=== PATIENT | male | born 1970 | race Caucasian/White ===

== ENCOUNTER 2020-01-27 15:21 | Inpatient (IN) ==
[2020-01-27] MEDS ORDERED: ASPIRIN 81 MG CHEW PO STA (17:13)
--- NOTE | 2020-01-27 17:14 | Emergency Department Note ---
History of Present Illness General Chief complaint: Chest Pain Stated complaint: CHEST PAIN, TROUBLE BREATHIN, HEAVY CHEST Time Seen by Provider: 01/27/20 16:55 History of Present Illness Maximum Pain Intensity: 7 This is a 50-year-old male that presents to the emergency department via private vehicle accompanied by female with complaints of "chest pain, trouble breathing, heavy chest". The patient states that for the past 2 weeks he has been experiencing a heaviness in the chest that is worse with lying flat and exertion. He denies any history of TX but does note a history of thymoma with several surgeries last of which was in 2016. He notes he has not had chemo since 2008. He was diagnosed with a thymoma in 2002. The patient describes the current discomfort that he has had for the past 2 weeks as a heaviness in the chest but worsened last week. He does see Dr. Roberson of cardiology in [place]. The patient states that he has had trouble sleeping secondary to the pain. He was recently evaluated at [facility] department on Thursday of this week where he notes he had a full work-up done which was reassuring and although he was recommended to stay for observation he declined. He did have a CT scan of the chest performed there to evaluate for PE and he does show the report and at this time it was read as negative for evidence of PE. The patient describes overall discomfort is a 710. Home Medications Home Medications Medication Instructions Recorded Confirmed Type enalapril maleate 2.5 mg PO HS 04/04/18 01/27/20 History pravastatin 40 mg PO HS 04/04/18 01/27/20 History ascorbic acid (vitamin C) [Vitamin 1,000 mg PO QAM 01/27/20 01/27/20 History C] baclofen 10 mg PO HS PRN 01/27/20 01/27/20 History carvedilol 6.25 mg PO AMHS 01/27/20 01/27/20 History cyanocobalamin (vitamin B-12) 1,000 mcg PO QAM 01/27/20 01/27/20 History [Vitamin B-12] hydroxyzine HCl 25 mg PO Q6H PRN 01/27/20 01/27/20 History tramadol 50 - 100 mg PO HS PRN 01/27/20 01/27/20 History Allergies Allergy/AdvReac Type Severity Reaction Status Date / Time ciprofloxacin [From Cipro] Allergy Intermediate Rash Verified 01/27/20 18:50 duloxetine [From Cymbalta] Allergy Intermediate unable to Verified 01/27/20 18:50 void Past Med/Surg History Medical History Cardiomyopathy due to chemotherapy Chronic pain syndrome History of rectal bleeding recent adm to [facility], found to have hemorrhoids, hgb stable at 15 HLD (hyperlipidemia) HTN (hypertension) IBS (irritable bowel syndrome) Malignant thymoma (Resolved) PTSD (post-traumatic stress disorder) Raynaud's disease (Chronic) Syncopal episodes (Resolved) Surgical History H/O abdominal surgery History of back surgery S/P thoracotomy Family History Other No significant family history Social History Preferred Language: Botswan[place] Communication Ability: Effective Director Fraud Required: No Beliefs That Will Affect Care: None Current Living Situation: Spouse and Other Current Living Situation Comment: adult child and two dogs Other Information That Helps Us Care for You: Yes (Be aware that I have PTSD if i am asleep and I am awoken suddenly.) Feels Safe at Home: Yes Safety Concerns: Feels Safe At This Time Smoking Status: Former smoker Hx Alcohol Use: Yes Alcohol type: beer Alcohol Intake Frequency: Rarely Hx Substance Use: No Review of Systems A total of 10 systems reviewed and were otherwise negative Physical Exam Vital Signs Vital Signs - 24 hr 01/27/20 15:29 01/27/20 17:57 01/27/20 17:58 Temperature 36.9 C Temperature Source Oral Pulse Rate 106 H 98 H Pulse Rate [Apical] 94 H Pulse Rate from SpO2 Sensor Pulse Rhythm Regular Pulse Rhythm [Apical] Regular Pulse Strength [Apical] Normal Respiratory Rate 22 20 22 Respiratory Effort / Characteristics Non-Labored Spontaneous Respiratory Depth Normal Respiratory Pattern Regular Blood Pressure 128/82 Blood Pressure [Left Arm] 111/89 Blood Pressure Mean 97 Blood Pressure Mean [Left Arm] 96 Blood Pressure Position [Left Arm] Sitting Pulse Oximetry 99 99 99 Oxygen Delivery Method Room Air Room Air Room Air Sepsis Recent Fever Within 48 Hours No Sepsis New/Unexplained Change in Mental Status No Sepsis Action Taken by Nursing No Action Required 01/27/20 18:53 01/27/20 19:15 01/27/20 19:45 Temperature Temperature Source Pulse Rate 99 H 103 H Pulse Rate [Apical] 99 H Pulse Rate from SpO2 Sensor 98 H 105 H Pulse Rhythm Pulse Rhythm [Apical] Regular Pulse Strength [Apical] Normal Respiratory Rate 18 20 21 Respiratory Effort / Characteristics Non-Labored Spontaneous Respiratory Depth Normal Respiratory Pattern Regular Blood Pressure 121/80 113/88 Blood Pressure [Left Arm] 134/87 Blood Pressure Mean 84 93 Blood Pressure Mean [Left Arm] 102 Blood Pressure Position [Left Arm] Sitting Pulse Oximetry 97 97 98 Oxygen Delivery Method Room Air Sepsis Recent Fever Within 48 Hours Sepsis New/Unexplained Change in Mental Status Sepsis Action Taken by Nursing 01/27/20 19:49 01/27/20 20:00 Temperature Temperature Source Pulse Rate 102 H Pulse Rate [Apical] Pulse Rate from SpO2 Sensor 102 H Pulse Rhythm Pulse Rhythm [Apical] Pulse Strength [Apical] Respiratory Rate 21 Respiratory Effort / Characteristics Respiratory Depth Respiratory Pattern Blood Pressure 99/76 L Blood Pressure [Left Arm] Blood Pressure Mean 88 Blood Pressure Mean [Left Arm] Blood Pressure Position [Left Arm] Pulse Oximetry 96 94 Oxygen Delivery Method Room Air Sepsis Recent Fever Within 48 Hours Sepsis New/Unexplained Change in Mental Status Sepsis Action Taken by Nursing VITAL SIGNS - Vital signs and nursing notes were reviewed. Stable and afebrile. GENERAL - 50-year-old male appearing his stated age who is in no acute distress. Communicates well with provider and answers questions appropriately. SKIN - Without rashes. No meningeal or petechial rash HEAD - NC/AT. EYES - PERRL with EOMI bilaterally. Sclera anicteric. EARS - No deformities of external structures noted on gross examination bilaterally. NOSE - Midline and without cyanosis. No epistaxis or purulent drainage noted. MOUTH/OROPHARYNX - Without perioral cyanosis. NECK - Neck with FROM. No nuchal rigidity. LUNGS - Chest wall symmetric without accessory muscle use, intercostals retractions, or central cyanosis. Normal vesicular breath sounds CTA B/L. No wheezes, rales, or rhonchi appreciated. CARDIAC - RRR with S1/S2. No murmur, rubs, or gallops appreciated. ABDOMEN - Abdominal contour normal without pulsations or visible masses. BS normoactive all four quadrants. No tenderness, palpable masses, hepatosplenomegaly, or ascites noted. EXTREMITIES - No clubbing or peripheral cyanosis. No pretibial edema present. +5/5 strength noted in UE/LE bilaterally. NEUROLOGIC - Cranial nerves II through XII grossly intact. PSYCH - A&O, and cooperates fully with examiner. Pt is very pleasant and interacts well with examiner. Course Administered Medications Carvedilol (Coreg) 6.25 mg PO [facility] Stop: 02/26/20 21:39 Last Admin: 01/27/20 22:49 Dose: Not Given Documented by: [id number] Enalapril Maleate (Vasotec) 2.5 mg PO [facility] Stop: 02/26/20 21:39 Last Admin: 01/27/20 22:50 Dose: 2.5 mg Documented by: [id number] Heparin Sodium/Dextrose (Heparin Sodium/Dextrose) 25,000 units in 500 mls @ 18 mls/hr IV .Q24H [facility]; Protocol Stop: 02/26/20 20:14 Last Admin: 01/27/20 22:35 Dose: 900 units/hr, 18 mls/hr Documented by: [id number] Cosigned by: [id number] Morphine Sulfate (Morphine Sulfate) 2 mg IV Q4H PRN PRN Reason: Pain Stop: 02/10/20 21:39 Last Admin: 01/27/20 22:36 Dose: 2 mg Documented by: [id number] Pravastatin Sodium (Pravachol) 40 mg PO [facility] Stop: 02/26/20 21:39 Last Admin: 01/27/20 22:50 Dose: 40 mg Documented by: [id number] Discontinued Medications Aspirin (Aspirin Chew) 324 mg PO NOW STA Stop: 01/27/20 17:14 Last Admin: 01/27/20 18:00 Dose: 324 mg Documented by: [id number] Morphine Sulfate (Morphine Sulfate) 4 mg IV NOW STA Stop: 01/27/20 18:05 Last Admin: 01/27/20 18:52 Dose: 4 mg Documented by: [id number] Nitroglycerin (Nitro-Bid 2%) 0.5 inch EXT NOW STA Stop: 01/27/20 18:05 Last Admin: 01/27/20 18:51 Dose: 0.5 inch Documented by: [id number] Ondansetron HCl (Zofran) 4 mg IV NOW STA Stop: 01/27/20 18:05 Last Admin: 01/27/20 18:52 Dose: 4 mg Documented by: [id number] Medical Decision Making Laboratory Data Result diagrams: 01/27/20 16:59 01/27/20 16:59 Lab Results 01/27/20 01/27/20 01/27/20 Range/Units 16:59 16:59 16:59 WBC 11.54 H (4.8-10.8) K/uL RBC 5.06 (4.7-6.1) M/uL Hgb 15.7 (14.0-18.0) g/dL Hct 44.8 (42-52) % MCV 88.5 (80-100) fL MCH 31.0 (25-34) pg MCHC 35.0 (32-36) g/dL RDW Std Deviation 41.7 (36.4-46.3) fL RDW Coeff of Lucila 12.9 (11.5-14.5) % Plt Count 270 (130-400) K/uL MPV 10.0 (7.4-10.4) fL Immature Gran % (Auto) 0.3 % Neut % (Auto) 74.7 % Lymph % (Auto) 9.4 % Stone % (Auto) 13.0 % Eos % (Auto) 2.3 % Baso % (Auto) 0.3 % Neut # (Auto) 8.63 H (1.4-6.5) K/uL Lymph # (Auto) 1.08 L (1.2-3.4) K/uL Stone # (Auto) 1.50 H (0.11-0.59) K/uL Eos # (Auto) 0.27 (0-0.5) K/uL Baso # (Auto) 0.03 (0-0.2) K/uL Immature Gran # (Auto) 0.03 H (0.00-0.02) K/uL PT 11.2 (9.0-12.0) Seconds INR 1.1 (0.9-1.1) APTT 25.1 (21.0-31.0) Seconds PTT Ratio 0.9 Sodium 139 (136-145) mmol/L Potassium 3.7 (3.5-5.1) mmol/L Chloride 104 (98-107) mmol/L Carbon Dioxide 28 (21-32) mmol/L Anion Gap 7.0 (3-11) BUN 16 (7-18) mg/dl Creatinine 1.19 (0.6-1.4) mg/dl Est Cr Clr Drug Dosing 79.2 ml/min Est GFR ( Amer) 82.1 Est GFR (Non-Af Amer) 70.8 BUN/Creatinine Ratio 13.5 (10-20) Glucose 110 H (70-99) mg/dl Calcium 9.2 (8.5-10.1) mg/dl Magnesium 1.6 L (1.8-2.4) mg/dl Total Bilirubin 1.9 H (0.2-1) mg/dl AST 20 (15-37) U/L ALT 31 (12-78) U/L Alkaline Phosphatase 91 (45-117) U/L Total Creatine Kinase 47 (39-308) U/L CK-MB (CK-2) < 1.0 (0.5-3.6) ng/ml CK/CKMB % Calc TNP Troponin I 0.154 H* (0-0.045) ng/ml NT-Pro-B Natriuret Pep 119 (0-900) pg/ml Total Protein 7.8 (6.4-8.2) gm/dl Albumin 3.3 L (3.4-5.0) gm/dl Globulin 4.5 H (2.5-4.0) gm/dl Albumin/Globulin Ratio 0.7 L (0.9-2) Lipase 73 (73-393) U/L TSH 5.610 H (0.300-4.500) uIu/ml Free T4 1.00 (0.8-1.6) ng/dl Lyme Disease IgG Ab (Negative) Lyme Disease IgM Ab (Negative) 01/27/20 Range/Units 16:59 WBC (4.8-10.8) K/uL RBC (4.7-6.1) M/uL Hgb (14.0-18.0) g/dL Hct (42-52) % MCV (80-100) fL MCH (25-34) pg MCHC (32-36) g/dL RDW Std Deviation (36.4-46.3) fL RDW Coeff of Lucila (11.5-14.5) % Plt Count (130-400) K/uL MPV (7.4-10.4) fL Immature Gran % (Auto) % Neut % (Auto) % Lymph % (Auto) % Stone % (Auto) % Eos % (Auto) % Baso % (Auto) % Neut # (Auto) (1.4-6.5) K/uL Lymph # (Auto) (1.2-3.4) K/uL Stone # (Auto) (0.11-0.59) K/uL Eos # (Auto) (0-0.5) K/uL Baso # (Auto) (0-0.2) K/uL Immature Gran # (Auto) (0.00-0.02) K/uL PT (9.0-12.0) Seconds INR (0.9-1.1) APTT (21.0-31.0) Seconds PTT Ratio Sodium (136-145) mmol/L Potassium (3.5-5.1) mmol/L Chloride (98-107) mmol/L Carbon Dioxide (21-32) mmol/L Anion Gap (3-11) BUN (7-18) mg/dl Creatinine (0.6-1.4) mg/dl Est Cr Clr Drug Dosing ml/min Est GFR ( Amer) Est GFR (Non-Af Amer) BUN/Creatinine Ratio (10-20) Glucose (70-99) mg/dl Calcium (8.5-10.1) mg/dl Magnesium (1.8-2.4) mg/dl Total Bilirubin (0.2-1) mg/dl AST (15-37) U/L ALT (12-78) U/L Alkaline Phosphatase (45-117) U/L Total Creatine Kinase (39-308) U/L CK-MB (CK-2) (0.5-3.6) ng/ml CK/CKMB % Calc Troponin I (0-0.045) ng/ml NT-Pro-B Natriuret Pep (0-900) pg/ml Total Protein (6.4-8.2) gm/dl Albumin (3.4-5.0) gm/dl Globulin (2.5-4.0) gm/dl Albumin/Globulin Ratio (0.9-2) Lipase (73-393) U/L TSH (0.300-4.500) uIu/ml Free T4 (0.8-1.6) ng/dl Lyme Disease IgG Ab Negative (Negative) Lyme Disease IgM Ab Negative (Negative) Imaging Data Radiologist's Impression: XR chest 1V portable CLINICAL HISTORY: Atypical chest pain COMPARISON STUDY: 02/12/2019 FINDINGS: There are postsurgical changes of a midline sternotomy. Spinal electrodes are again evident. The heart is enlarged. There is elevation left hemidiaphragm. There is a chronic deformity left chest wall. There are subsegmental atelectatic changes at the left lung base. There is no lobar consolidation. There is no overt failure. There are minor atelectatic changes at the right lung base.[ IMPRESSION: Chronic changes as described above. No acute findings ACT 112: Negative or not required by law. Electronically signed by: Fredi Davey M.D. 01/27/2020 5:53 PM ECG Data Additional Comments: Sinus rhythm with PVC. 93 bpm. QTc 430. No evidence of [address] YUNG. MDM Narrative Patient was seen and evaluated as above in room B03. Review was performed of nursing notes and vital signs. I did review pertinent previous visits and patient history. After obtaining a thorough history and physical examination the above work up was performed. He presents today with chest pain. Described as a heaviness and worse with exertion. Concern is for cardiac etiology. IV access was established. Labs were drawn. He was given a full-strength chewable aspirin here. EKG does not reveal any evidence of ST YUNG. Chest x-ray is as above. Patient has had ongoing pain x2 weeks, however with his persistence of pain did feel it was warranted to provide nitroglycerin as well as morphine. Troponin was found to be minimally elevated. Mild leukocytosis without anemia. No emergent metabolic disturbance. No coagulopathy. No evidence of emergent kidney or liver failure. T bili is mildly elevated and magnesium is slightly low. TSH elevated with free T4 that is normal. Lyme testing negative. Given the patient's presentation it is felt that further evaluation and management is warranted in the inpatient setting. Case discussed with the hospitalist. Please refer to further documentation regarding his stay. While in the department, I personally reevaluated the patient. Concern is for NSTEMI. I did review his records from [facility] from 2 days ago where he had a negative CTA of the chest therefore feel PE is less likely. Case was discussed with the attending physician. An order was placed for continuous cardiac monitoring. The monitor shows a rate of 106 with sinus rhythm. I attest that I have personally reviewed the patient medication list GCS: 15 In the evaluation and treatment of this patient, the following differential diagnoses were considered: TX, ASC, Dysrhythmia, Angina, Mediastinitis, GERD, Esophagitis, PE, Pneumonia, Bronchitis, Costochondritis, Rib Fracture, Zoster. Impression & Plan Non-ST elevation TX (NSTEMI), Exertional chest pain, Elevated troponin Discharge Plan Visit Data *Final* Discharge Date/Time: 01/27/20 20:46 Chief Complaint: Chest Pain Stated Complaint: CHEST PAIN, TROUBLE BREATHIN, HEAVY CHEST ED Provider: Brenden Birch ED Midlevel Provider: Sanya Coyle Discharge Problem: Non-ST elevation TX (NSTEMI), Exertional chest pain, Elevated troponin Patient Disposition: Admitted As Inpatient Condition: Fair Discharge Instructions Interventions: ED Discharge Assessment Last Done: 01/27/20 20:46
[2020-01-27 17:32] LABS: Basophils # (auto) 0.03 K/uL (0-0.2); Basophils % (auto) 0.3 %; Eosinophils # (auto) 0.27 K/uL (0-0.5); Eosinophils % (auto) 2.3 %; Hematocrit (blood only) 44.8 % (42-52); Hemoglobin 15.7 g/dL (14.0-18.0); Immature Granulocytes # (auto) 0.03 K/uL (0.00-0.02); Immature Granulocytes % (auto) 0.3 %; Lymphocytes # (auto) 1.08 K/uL (1.2-3.4); Lymphocytes % (auto) 9.4 %; Mean Corpuscular Volume 88.5 fL (80-100); Neutrophils # (auto) 8.63 K/uL (1.4-6.5); Neutrophils % (auto) 74.7 %; Platelet Count 270 K/uL (130-400); RDW Coefficient of Variation 12.9 % (11.5-14.5); RDW Standard Deviation 41.7 fL (36.4-46.3); Red Blood Count 5.06 M/uL (4.7-6.1); White Blood Count 11.54 K/uL (4.8-10.8)
[2020-01-27 17:39] LABS: Alanine Aminotransferase 31 U/L (12-78); Albumin Level 3.3 gm/dl (3.4-5.0); Aspartate Aminotransferase 20 U/L (15-37); BUN Creatinine Ratio 13.5 (10-20); Blood Urea Nitrogen 16 mg/dl (7-18); Calcium 9.2 mg/dl (8.5-10.1); Carbon Dioxide 28 mmol/L (21-32); Chloride 104 mmol/L (98-107); Creatinine Clr Calc Pharmacy 79.2 ml/min; Est GFR (African American) 82.1; Est GFR (Non-African American) 70.8; Glucose 110 mg/dl (70-99); Lipase 73 U/L (73-393); Magnesium 1.6 mg/dl (1.8-2.4); Potassium 3.7 mmol/L (3.5-5.1); Sodium 139 mmol/L (136-145)
[2020-01-27 17:43] LABS: INR 1.1 (0.9-1.1); Partial Thromboplastin Ratio 0.9; Partial Thromboplastin Time 25.1 Seconds (21.0-31.0); Prothrombin Time 11.2 Seconds (9.0-12.0)
[2020-01-27 17:54] LABS: Albumin Globulin Ratio 0.7 (0.9-2); Alkaline Phosphatase 91 U/L (45-117); Bilirubin,Total 1.9 mg/dl (0.2-1); Creatine Kinase 47 U/L (39-308); Creatine Kinase MB < 1.0 ng/ml (0.5-3.6); Globulin 4.5 gm/dl (2.5-4.0); NT Pro B Type Natriuretic Pept 119 pg/ml (0-900); Total Protein 7.8 gm/dl (6.4-8.2); Troponin I 0.154 ng/ml (0-0.045)
--- NOTE | 2020-01-27 17:55 | XRay Report ---
XR chest 1V portable CLINICAL HISTORY: Atypical chest pain COMPARISON STUDY: 02/12/2019 FINDINGS: There are postsurgical changes of a midline sternotomy. Spinal electrodes are again evident . The heart is enlarged. There is elevation left hemidiaphragm. There is a chronic deformity left jonatan st wall. There are subsegmental atelectatic changes at the left lung base. There is no lobar consolid ation. There is no overt failure. There are minor atelectatic changes at the right lung base.[ IMPRESSION: Chronic changes as described above. No acute findings ACT 112: Negative or not required by law. Electronically signed by: Fredi Davey M.D. 01/27/2020 5:53 PM
[2020-01-27] MEDS ORDERED: MoRPHine SULFATE 4 MG/ML 1 ML CARP\\VIAL IV STA (18:04)
[2020-01-27] MEDS ORDERED: NITROGLYCERIN 2% OINTMENT 30GM TUBE EXT STA (18:04)
[2020-01-27] MEDS ORDERED: ONDANSETRON INJ 2 MG/ML 2 ML VIAL IV STA (18:04)
[2020-01-27 18:40] LABS: Lyme Ab IgG w/WB Rflx Negative (Negative); Lyme Ab IgM w/WB Rflx Negative (Negative)
[2020-01-27] MEDS ORDERED: HEPARIN SODIUM/DEXTROSE 25,000 UNITS/500 ML BAG IV SCH (20:15)
--- NOTE | 2020-01-27 20:16 | History & Physical Report ---
Date of Service January 27, 2020 Assessment & Plan (1) NSTEMI (non-ST elevated myocardial infarction): This is a 50yo M with history of thymoma in remission, history of left lobectomy, cardiomyopathy 2/2 chemotherapy, atypical chest pain, post thoracotomy pain syndrome, HTN, PTSD and other medical problems listed below who presents with progressively worsening chest pain x1 week and was found to have NSTEMI. -Persistent chest pain with troponin elevation of 0.154. Chest pain complicated by history of thoracotomy with residual pain syndrome, but no troponin elevation in the past -EKG with sinus rhythm with PVCs. No acute ST changes -CT PE performed at [facility] on 01/24 with no evidence of PE -Pain improved with nitroglycerin and morphine today. Admit to PCU and monitor on telemetry. Trend troponin, check 2D echo, nitroglycerin and morphine as needed -Started low-dose IV heparin. NPO after midnight -Routine cardiology consult for [facility] cardiology. Follows with Dr. Leiva of [facility] [address] [facility] (2) Syncopal episodes: Endorses 2 witnessed syncopal episodes 2 nights ago in setting of chest discomfort -Likely orthostatic in setting of dehydration but possible cardiac etiology. Monitor on telemetry (3) Malignant thymoma: In remission s/p surgical resection and chemotherapy. Follows with oncologist in [place] who is due to see later this month (4) History of rectal bleeding: History of internal hemorrhoids with recent admission to [facility] for rectal bleeding. Hemoglobin stable at 15 -Monitor closely for bleeding while on IV heparin, trend CBC (5) Cardiomyopathy due to chemotherapy: Continue carvedilol, lisinopril (6) HLD (hyperlipidemia): Continue pravastatin (7) PTSD (post-traumatic stress disorder): Hydroxyzine as needed DVT Ppx: IV heparin Code status: FULL PCP: JAVIER Templeton. Also follows with [facility] in [place] Dispo: Admitted to PCU. Plan to return home once medically stable. Patient seen in collaboration with Dr. Lepe. Please see addendum. History of Present Illness Chief Complaint: chest pain Primary Care Provider: Cheyanne Templeton PA-C This is a 50yo M with history of thymoma in remission, history of left lobectomy, cardiomyopathy 2/2 chemotherapy, atypical chest pain, post thoracotomy pain syndrome, HTN, PTSD and other medical problems listed below who presents with progressively worsening chest pain x1 week. Patient saw scenic artist Dr. Leiva in [place] 1 week ago and had EKG performed, which was normal and echo was scheduled for later in the week. Was told that pain might be related to GERD and to try PPI but pain did not improve. Was then seen in [facility] ER on 01/24 with continued chest pain and had EKG and chest x- ray were unremarkable. CT PE from 01/24 showed postsurgical changes from history of thymoma and was negative for PE. Was recommended to stay for observation but patient wanted to return home and rest. Returned home that Thursday night and reportedly had 2 syncopal episodes witnessed by . Did not want to go back to ED at that point and proceeded to sleep for most of the day yesterday through this morning. When he woke up today, had persistent but worsened chest pain radiating from his left or right chest with occasional radiation into her right jaw. Describes pain as a pressure, "like someone sitting on my chest". Worsened with deep inspiration. No nausea, vomiting or palpitations. Saw provider at [facility] and was sent to [facility] ED for further evaluation. TTE from 12/2018 with EF of 48%, diffuse mild hypokinesis, grade 1 diastolic dysfunction, no significant valvular disease. Allergies Allergy/AdvReac Type Severity Reaction Status Date / Time ciprofloxacin [From Cipro] Allergy Intermediate Rash Verified 01/27/20 18:50 duloxetine [From Cymbalta] Allergy Intermediate unable to Verified 01/27/20 18:50 void Home Medications Home Medications Medication Instructions Recorded Confirmed Type enalapril maleate 2.5 mg PO HS 04/04/18 01/27/20 History pravastatin 40 mg PO HS 04/04/18 01/27/20 History ascorbic acid (vitamin C) [Vitamin 1,000 mg PO QAM 01/27/20 01/27/20 History C] baclofen 10 mg PO HS PRN 01/27/20 01/27/20 History carvedilol 6.25 mg PO AMHS 01/27/20 01/27/20 History cyanocobalamin (vitamin B-12) 1,000 mcg PO QAM 01/27/20 01/27/20 History [Vitamin B-12] hydroxyzine HCl 25 mg PO Q6H PRN 01/27/20 01/27/20 History tramadol 50 - 100 mg PO HS PRN 01/27/20 01/27/20 History Past Med/Surg History Medical History Cardiomyopathy due to chemotherapy Chronic pain syndrome History of rectal bleeding recent adm to [facility], found to have hemorrhoids, hgb stable at 15 HLD (hyperlipidemia) HTN (hypertension) IBS (irritable bowel syndrome) Malignant thymoma (Resolved) PTSD (post-traumatic stress disorder) Raynaud's disease (Chronic) Syncopal episodes (Resolved) Surgical History H/O abdominal surgery History of back surgery S/P thoracotomy Family History Other No significant family history Social History Preferred Language: Divehi Communication Ability: Effective Duplicator Punch Operator Required: No Beliefs That Will Affect Care: None Current Living Situation: Spouse and Other Current Living Situation Comment: adult child and two dogs Other Information That Helps Us Care for You: Yes (Be aware that I have PTSD if i am asleep and I am awoken suddenly.) Feels Safe at Home: Yes Safety Concerns: Feels Safe At This Time Smoking Status: Former smoker Hx Alcohol Use: Yes Alcohol type: beer Alcohol Intake Frequency: Rarely Hx Substance Use: No Review of Systems Review of Systems: At least ten systems reviewed and negative except as noted in the HPI. Physical Exam Physical Exam: General Appearance: WD/WN, vitals as above, NAD, appears acutely ill, flushed Head: normocephalic, atraumatic Eyes: normal inspection, PERRL, conjunctivae normal, anicteric sclerae ENT: external ear and nose normal, oropharynx normal Neck: trachea midline, no thyromegaly normal visual inspection Respiratory: normal respiratory effort, lungs clear to auscultation, no wheeze, rales, rhonchi. Normal insp/exp effort, no accessory muscle use Cardiovascular: tachycardic rate, regular rhythm, no murmur, normal peripheral pulses. Vessels: no JVD or carotid bruit Chest: normal inspection of chest, non-tender to palpation Abdomen/GI: normal bowel sounds, soft, nontender, no hepatosplenomegaly Extremities/Musculoskeletal: no cyanosis or clubbing, extremities motor strength 5/5 Neurologic: PERRL, EOMI, accommodation nl, no face palsy, no dysarthria, CN's I I-XI intact bilaterally and moves all extremities Psychiatric: A+Ox3, euthymic affect Skin: no rashes, normal color, warm/dry Results & Data Results & Data ([facility]) Vital Signs (Past 12 Hours) Vital Signs Temp Pulse Pulse Resp BP BP Pulse Ox 01/27/20 19:49 96 01/27/20 19:45 103 H 21 113/88 98 01/27/20 19:15 99 H 20 121/80 97 01/27/20 18:53 99 H 18 134/87 97 01/27/20 17:58 98 H 22 99 01/27/20 17:57 94 H 20 111/89 99 01/27/20 15:29 36.9 C 106 H 22 128/82 99 Laboratory Results Short CBC 01/27/20 Range/Units 16:59 WBC 11.54 H (4.8-10.8) K/uL Hgb 15.7 (14.0-18.0) g/dL Hct 44.8 (42-52) % Plt Count 270 (130-400) K/uL BMP 01/27/20 16:59 Sodium 139 Potassium 3.7 Chloride 104 Carbon Dioxide 28 BUN 16 Creatinine 1.19 Glucose 110 H Calcium 9.2 Cardiac Enzymes 01/27/20 Range/Units 16:59 Total Creatine Kinase 47 (39-308) U/L CK-MB (CK-2) < 1.0 (0.5-3.6) ng/ml Troponin I 0.154 H* (0-0.045) ng/ml Liver Function 01/27/20 Range/Units 16:59 Total Bilirubin 1.9 H (0.2-1) mg/dl AST 20 (15-37) U/L ALT 31 (12-78) U/L Alkaline Phosphatase 91 (45-117) U/L Albumin 3.3 L (3.4-5.0) gm/dl Diagnostic Findings CXR: IMPRESSION: Chronic changes as described above. No acute findings ECG Rhythm: sinus rhythm Findings: + PVC Change: no significant change Code Status & VTE Plan VTE Prophylaxis Plan VTE Prophylaxis will be ordered: Yes Supervising Physician Co-Signing Physician Notes Care coordinated with Deedee Zamudio PA-C. Agree with above note. Patient seen and examined. Please refer to her notes for full details. Vital signs reviewed. Physical exam: General exam: Alert and oriented. Not in acute distress. CVS: S1 and S2 heard, regular rate and rhythm, no murmurs. RS: Clear to auscultation, no wheezing or crackles. ABD: Soft, bowel sounds present, nontender, no distention. MIDDLE SCHOOL DIRECTOR: Nonfocal. EXT: No edema, no erythema. Labs: Reviewed. Assessment and plan: 50M presents with ongoing chest pain for about a week. Chest pain NSTEMI? mild elevation of troponin iv low dose heparin serial ce nitro paste cardio consult in am monitor in tele Syncope? was not eating much orthostatic? will monitor in tele follow echo Other diagnosis and plan of care as per Deedee Zamudio PA-C. Keith dejesus MD.
[2020-01-27] MEDS ORDERED: Heparin IV Low Dose *NO* Bolus IV SCH (20:30)
[2020-01-27] MEDS ORDERED: BACLOFEN 10 MG TAB PO PRN (21:40)
[2020-01-27] MEDS ORDERED: ENALAPRIL MALEATE 5 MG TAB PO SCH (21:40)
[2020-01-27] MEDS ORDERED: NITROGLYCERIN SL 0.4 MG/TAB TAB SL PRN (21:40)
[2020-01-27] MEDS ORDERED: PRAVASTATIN SOD 40 MG TAB PO SCH (21:40)
[2020-01-27] MEDS: MoRPHine SULFATE 2 MG/ML CARP IV PRN (22:36)
[2020-01-27] MEDS: carvediloL 6.25 MG TAB PO SCH (22:49)
[2020-01-28 05:33] LABS: Hematocrit (blood only) 40.4 % (42-52); Mean Corpuscular Hemoglobin 30.6 pg (25-34); Mean Corpuscular Hgb Conc 34.7 g/dL (32-36); Mean Corpuscular Volume 88.4 fL (80-100); Platelet Count 265 K/uL (130-400); RDW Coefficient of Variation 12.8 % (11.5-14.5); RDW Standard Deviation 41.3 fL (36.4-46.3); Red Blood Count 4.57 M/uL (4.7-6.1); White Blood Count 11.37 K/uL (4.8-10.8)
[2020-01-28 05:43] LABS: Partial Thromboplastin Time 28.8 Seconds (21.0-31.0)
[2020-01-28 05:50] LABS: BUN Creatinine Ratio 17.1 (10-20); Calcium 8.7 mg/dl (8.5-10.1); Creatinine Clr Calc Pharmacy 93.1 ml/min; Est GFR (African American) 100.1; Est GFR (Non-African American) 86.3; Potassium 3.8 mmol/L (3.5-5.1)
[2020-01-28 06:13] LABS: Troponin I 0.07 ng/ml (0-0.045)
[2020-01-28] MEDS ORDERED: HEPARIN IV BOLUS 4,500 UNITS in SYRINGE 0 ML IV ONE (06:15)
[2020-01-28 07:04] LABS: Estimated Average Glucose 100 mg/dl; Hemoglobin A1C 5.1 % (4.5-5.6)
--- NOTE | 2020-01-28 07:31 | Electrocardiogram Report ---
Test Reason : Blood Pressure : / mmHG Vent. Rate : 093 BPM Atrial Rate : 093 BPM P-R Int : 126 ms QRS Dur : 084 ms QT Int : 346 ms P-R-T Axes : 017 041 042 degrees QTc Int : 430 ms Poor data quality, interpretation may be adversely affected Sinus rhythm with occasional Premature ventricular complexes Otherwise normal ECG When compared with ECG of 12-FEB-2019 15:05, Premature ventricular complexes are now Present Confirmed by Guille Pedersen ([id number]) on 01/28/2020 7:30:43 AM Referred By: Mike Velasquez Confirmed By:Guille Pedersen
[2020-01-28] MEDS: carvediloL 6.25 MG TAB PO SCH (08:20)
[2020-01-28] MEDS ORDERED: ASPIRIN 81 MG ECTAB PO SCH (09:00)
--- NOTE | 2020-01-28 11:00 | Cardiology Consultation ---
Date of Consultation The history is obtained from the patient as well. Noticing discomfort and chest pressure. It is worse lying flat and better sitting up is also noted shortness of breath as well. He was seen recently emergency room where he had a CAT scan to rule out a pulmonary embolism. He was recommended that he stay he did not wish to. He was On Thursday. Night he had 2 episodes of syncope occurred after he got out of bed without the walker is. He does not remember the episode nor does he Palpitations prior to his episode. He has had low-grade temps. he just does not feel well And His appetite has been poor. He does note that he was tested for Lyme's disease this admission. He believes he has had tick bites. He does walk in the lemon. He notes he has felt progressively more poor over the last week or so. The chest discomfort he describes as a heaviness in his chest. He is better sitting up is worse with a deep breath Does have a chronic myalgias and arthralgias. He is resting complete her systems are was negative January 28, 2020 History of Present Illness Attending Physician: Megan Ladd MD Allergies Allergy/AdvReac Type Severity Reaction Status Date / Time ciprofloxacin [From Cipro] Allergy Intermediate Rash Verified 01/27/20 18:50 duloxetine [From Cymbalta] Allergy Intermediate unable to Verified 01/27/20 18:50 void Home Medications Home Medications Medication Instructions Recorded Confirmed Type enalapril maleate 2.5 mg PO HS 04/04/18 01/27/20 History pravastatin 40 mg PO HS 04/04/18 01/27/20 History ascorbic acid (vitamin C) [Vitamin 1,000 mg PO QAM 01/27/20 01/27/20 History C] baclofen 10 mg PO HS PRN 01/27/20 01/27/20 History carvedilol 6.25 mg PO AMHS 01/27/20 01/27/20 History cyanocobalamin (vitamin B-12) 1,000 mcg PO QAM 01/27/20 01/27/20 History [Vitamin B-12] hydroxyzine HCl 25 mg PO Q6H PRN 01/27/20 01/27/20 History tramadol 50 - 100 mg PO HS PRN 01/27/20 01/27/20 History Patient History Medical History Cardiomyopathy due to chemotherapy Chronic pain syndrome History of rectal bleeding recent adm to [facility], found to have hemorrhoids, hgb stable at 15 HLD (hyperlipidemia) HTN (hypertension) IBS (irritable bowel syndrome) Malignant thymoma (Resolved) PTSD (post-traumatic stress disorder) Raynaud's disease (Chronic) Syncopal episodes (Resolved) Surgical History H/O abdominal surgery History of back surgery S/P thoracotomy Family History Other No significant family history Social History Preferred Language: Brazilian Communication Ability: Effective Premium Cancellation Clerk Required: No Beliefs That Will Affect Care: None Current Living Situation: Spouse and Other Current Living Situation Comment: adult child and two dogs Other Information That Helps Us Care for You: Yes (Be aware that I have PTSD if i am asleep and I am awoken suddenly.) Feels Safe at Home: Yes Safety Concerns: Feels Safe At This Time Smoking Status: Former smoker Hx Alcohol Use: Yes Alcohol type: beer Alcohol Intake Frequency: Rarely Hx Substance Use: No Results & Data ([facility]) Vital Signs (Past 12 Hours) Vital Signs Temp Pulse Pulse Resp BP Pulse Ox 01/28/20 08:00 37.9 C H 100 H 20 105/70 95 01/28/20 07:45 99 H 01/28/20 03:48 36.9 C 104 H 18 97/59 L 96 01/27/20 23:31 36.7 C 90 18 115/65 94 01/27/20 23:14 101 H He is awake alert and oriented x3. Mild degree of Dyspnea Heent: 2+ carotids, JVP is elevated, hearing normal, sclera ok Lungs: CTA b/l no r/r/w Heart: Heart sounds distant. mo M/R/G abd; soft nt nd + bs ext: - C/C/E Psych normal Neuro AAO x 3 Impressions: 1. Large pericardial effusion with pre-tamponade physiology 2. History of thymoma status post chemotherapy 3. History of nonischemic cardiomyopathy secondary to chemotherapy 4. Syncope x2 on Thursday 5.Echocardiogram this admission with normal LV function 6.Echocardiogram is consistent with pre-tamponade physiology with greater than 25% respiratory variation across the mitral inflow, LVOT variation in the descending thoracic aorta, RA and version, the RV apex does not open completely and the IVC is dilated and does not collapse The patient needs to be transferred to a tertiary care facility for a pericardial window and pericardial biopsy along with cytology of his pericardial effusion Especially in light of his prior malignancy.. I contacted [facility] for transfer as well as his care has been there before. Unfortunate there are 10 patients a head of him for an intermediate care bed. I did asked the patient if you wish to be considered for transfer to [facility] in [place]. He notes his care was at [facility] and would prefer to go there. Hopefully a bed will be available tomorrow afternoon or Thursday morning. His Lyme titer is negative. We will COVID test him in anticipation of transfer In the interim we will start colchicine 0.6 mg twice daily. In addition if he has further discomfort Toradol can be used as well IV. I stopped his lisinopril and reduced his carvedilol to 3.125 mg twice daily And stopped his heparin. Of note he describes a heart rate is always around 100 bpm. If he becomes unstable then we would need to seek transfer to a different tertiary care facility [facility]. I spent 30 minutes trying to arrange his transfer of care and in discussion with the hospitalist service.
[2020-01-28] MEDS ORDERED: COLCHICINE 0.6 MG TAB PO SCH (11:15)
[2020-01-28] MEDS ORDERED: KETOROLAC TROMETHAMINE 15 MG/ML VIAL IV ONE (11:38)
[2020-01-28] MEDS ORDERED: KETOROLAC TROMETHAMINE 15 MG/ML VIAL ONE (11:45)
--- NOTE | 2020-01-28 12:11 | Hospitalist Progress Note ---
Date of Service January 28, 2020 Assessment & Plan (1) Pericardial effusion with cardiac tamponade: Presented with 1 week history of shortness of breath chest heaviness, orthopnea and dyspnea on exertion Appreciate input from cardiology Noted on colchicine Echocardiogram shows moderate to large pericardial effusion with pericardial tamponade Patient will need pericardial window procedure Was seen by [facility] cardiology earlier this week Being followed at [facility] for his thymoma and ongoing treatment [facility] contacted, [facility] does not have any beds available till 01/30/2020 Discussed with patient, Willing to consider for transfer to [facility] for the procedure [facility] contacted Patient is accepted under cardiac surgery team Patient is transferred to ICU at [facility] for cardiac procedure, possible ca rdiocentesis with pericardial window and biopsy History of thymoma: Diagnosed in 2002, underwent thoracotomy with surgery, Status post chemo treatment last treatment was in 2008 Presents with shortness of breath/dyspnea on exertion for last 2 weeks Follows with cardiology at [facility] Last visit was on 01/23/2020, This admission: Echo shows large circumferential pericardial effusion 2cm With evidence of pericardial tamponade Concern for possible pericardial invasion of thymoma/malignancy Will need pericardial window with biopsy Then hematology oncology follow-up depending on the pathology report Follows with heme-onc at [facility] CODE STATUS: Full code Disposition: Patient is to [facility] in [place] ICU for further care Admission and Anticipated Discharge Date Admission Date: January 27, 2020 Subjective Patient reports of continued shortness of breath, orthopnea, sitting on the chair After chest heaviness, tightness Appreciate input from cardiology, Large pericardial effusion with tamponade noted on echocardiogram Patient will be transferred to [facility] in [place], Accepted under cardiac surgery team, Waiting for transportation to [place] Patient's present at bedside, updated Review of Systems Cardiovascular: + chest pain, + dyspnea, + dyspnea at rest, + dyspnea on exertion and + orthopnea Physical Exam Constitutional: WD/WN, vitals as above + acute distress (Due to orthopnea shortness of breath, chest pain) Eyes: + anicteric sclerae Neck: + JVD Respiratory: no cough Diminished breath sound, Cardiovascular: Rate/Rhythm: + tachycardic Vessels: + JVD Extremities: no edema Gastrointestinal (Abdomen): Percussion/Palpation: abdomen soft; abdomen nontender Musculoskeletal: no cyanosis or clubbing, extremities motor strength 5/5 Neurologic: PERRL, EOMI, accommodation nl, no face palsy, no dysarthria Psychiatric: A+Ox3, euthymic affect Results & Data Results & Data ([facility]) Vital Signs (Past 12 Hours) Vital Signs Temp Pulse Pulse Resp BP BP Pulse Ox 01/28/20 12:00 36.8 C 98 H 20 95/66 L 94 01/28/20 08:00 37.9 C H 100 H 20 105/70 95 01/28/20 07:45 99 H 01/28/20 03:48 36.9 C 104 H 18 97/59 L 96
[2020-01-28 12:17] LABS: Partial Thromboplastin Ratio 0.9; Partial Thromboplastin Time 26.3 Seconds (21.0-31.0)
--- NOTE | 2020-01-28 12:42 | Electrocardiogram Report ---
Test Reason : Blood Pressure : / mmHG Vent. Rate : 105 BPM Atrial Rate : 105 BPM P-R Int : 114 ms QRS Dur : 086 ms QT Int : 332 ms P-R-T Axes : 000 054 047 degrees QTc Int : 438 ms Sinus tachycardia with frequent Premature ventricular complexes Miminal MT depression Otherwise normal ECG When compared with ECG of 27-JAN-2020 15:35, No significant change was found Confirmed by Memo Ewing ([id number]) on 01/28/2020 12:42:33 PM Referred By: Mike Velasquez Confirmed By:Memo Ewing
[2020-01-28] MEDS: MoRPHine SULFATE 2 MG/ML CARP IV PRN (14:48)
[2020-01-28] MEDS ORDERED: LORazepam 0.5 MG/1 ML VIAL IV PRN (15:05)
--- NOTE | 2020-01-28 17:36 | Discharge Summary ---
Date of Service January 28, 2020 Admission HPI Per Admitting Provider This is a 50yo M with history of thymoma in remission, history of left lobectomy, cardiomyopathy 2/2 chemotherapy, atypical chest pain, post thoracotomy pain syndrome, HTN, PTSD and other medical problems listed below who presents with progressively worsening chest pain x1 week. 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 Leiva in [place] 1 week ago and had EKG performed, which was normal and echo was scheduled for later in the week. Was told that pain might be related to GERD and to try PPI but pain did not improve. Was then seen in [facility] ER on 01/24 with continued chest pain and had EKG and chest x- ray were unremarkable. CT PE from 01/24 showed postsurgical changes from history of thymoma and was negative for PE. Was recommended to stay for observation but patient wanted to return home and rest. Returned home that Thursday night and reportedly had 2 syncopal episodes witnessed by . Did not want to go back to ED at that point and proceeded to sleep for most of the day yesterday through this morning. When he woke up today, had persistent but worsened chest pain radiating from his left or right chest with occasional radiation into her right jaw. Describes pain as a pressure, "like someone sitting on my chest". Worsened with deep inspiration. No nausea, vomiting or palpitations. Saw provider at [facility] and was sent to [facility] ED for further evaluation. TTE from 12/2018 with EF of 48%, diffuse mild hypokinesis, grade 1 diastolic dysfunction, no significant valvular disease. Principal Diagnosis PERICARDIAL EFFUSION WITH TAMPONADE Discharge Exam Constitutional WD/WN, vitals as above + acute distress (Due to orthopnea shortness of breath, chest pain) Eyes + anicteric sclerae Respiratory no cough Cardiovascular Rate/Rhythm: + tachycardic Vessels: + JVD Extremities: no edema Gastrointestinal (Abdomen) Percussion/Palpation: abdomen soft; abdomen nontender Musculoskeletal no cyanosis or clubbing, extremities motor strength 5/5 Neurologic PERRL, EOMI, accommodation nl, no face palsy, no dysarthria Psychiatric A+Ox3, euthymic affect Discharge Data Allergies Allergy/AdvReac Type Severity Reaction Status Date / Time ciprofloxacin [From Cipro] Allergy Intermediate Rash Verified 01/27/20 18:50 duloxetine [From Cymbalta] Allergy Intermediate unable to Verified 01/27/20 18:50 void Consultations 01/27/20 18:52 ED Decision to Admit Stat 01/27/20 21:40 Consult Cardiology Routine Hospital Course (1) Pericardial effusion with cardiac tamponade: Presented with 1 week history of shortness of breath chest heaviness, or thopnea and dyspnea on exertion Appreciate input from cardiology Noted on colchicine Echocardiogram shows moderate to large pericardial effusion with pericardial tamponade Patient will need pericardial window procedure Was seen by [facility] cardiology earlier this week Being followed at [facility] for his thymoma and ongoing treatment [facility] contacted, [facility] does not have any beds available till 01/30/2020 Discussed with patient, Willing to consider for transfer to [facility] for the procedure [facility] contacted Patient is accepted under cardiac surgery team Patient is transferred to ICU at [facility] for cardiac procedure, possible cardiocentesis with pericardial window and biopsy History of thymoma: Diagnosed in 2002, underwent thoracotomy with surgery, Status post chemo treatment last treatment was in 2008 Presents with shortness of breath/dyspnea on exertion for last 2 weeks Follows with cardiology at [facility] Last visit was on 01/23/2020, This admission: Echo shows large circumferential pericardial effusion 2cm With evidence of pericardial tamponade Concern for possible pericardial invasion of thymoma/malignancy Will need pericardial window with biopsy Then hematology oncology follow-up depending on the pathology report Follows with heme-onc at [facility] CODE STATUS: Full code Disposition: Patient is to [facility] in [place] ICU for further care Total Time Total Time Spent Total Time Spent (In Minutes): 40 minutes Total Time Includes: Examination of the Patient, Discharge Planning, Medication Reconciliation and Communication With Other Providers Discharge Plan Discharge Items Patient Disposition: Transfer Acute Care Hospital Reason For Visit: NSTEMI Discharge Diagnosis: PERICARDIAL EFFUSION WITH TAMPONADE Condition on Discharge: Fair Activity: Resume your previous activity Follow-up/Referrals: Cheyanne Templeton PA-C [Primary Care Provider] - Stand-Alone Forms: My [facility] IdeaString Medications and DC Order Prescriptions: No Action pravastatin 40 mg Tablet 40 mg PO HS RF: 0 enalapril maleate 2.5 mg Tablet 2.5 mg PO HS RF: 0 carvedilol 12.5 mg tablet 6.25 mg PO AMHS RF: 0 cyanocobalamin (vitamin B-12) [Vitamin B-12] 500 mcg Tablet 1,000 mcg PO QAM RF: 0 ascorbic acid (vitamin C) [Vitamin C] 500 mg Tablet 1,000 mg PO QAM RF: 0 baclofen 10 mg tablet 10 mg PO HS PRN (Reason: Muscle Spasm) RF: 0 hydroxyzine HCl 25 mg tablet 25 mg PO Q6H PRN (Reason: Anxiety) RF: 0 tramadol 50 mg Tablet 50 - 100 mg PO HS PRN (Reason: Pain) RF: 0 Admission Data Admit Date/Time: 01/27/20 20:10 Attending Provider: Megan Ladd Admit Provider: Keith Lepe Primary Care Provider: Cheyanne Templeton Other Providers: Keith Lepe ; Memo Ewing
[2020-01-28] MEDS ORDERED: carvediloL 3.125 MG TAB PO SCH (21:00)
--- NOTE | 2020-02-06 10:07 | Coding Query ---
To promote full compliance with coding requirements relating to patient care, provider participation is requested in all cases of weapons specialist uncertainty. Please assist us with the question(s) below: Coding Question(s): The diagnosis below was documented in the H&P then subsequently fell off all further documentation. Please indicate if it is still a possible diagnosis or ruled out. Physician's Response(s): NSTEMI ( ) Diagnosed and POA ( ) Diagnosed and not POA ( ) Ruled out ( x ) Other (please specify) Patient did not had NSTEMI the troponin elevation was due to pericardial effusion tx Megan LUND
== END 2020-01-28 20:42 | disposition short-term general hospital (02) | DRG 315 ==
LOC: ED 15:21 → 2S 20:10 → SUATTDRO 20:10 → 2S 20:46

== ENCOUNTER 2021-07-18 10:31 | Observation (INO) ==
[2021-07-18 10:56] LABS: Basophils # (auto) 0.02 K/uL (0-0.2); Basophils % (auto) 0.3 %; Eosinophils # (auto) 0.27 K/uL (0-0.5); Eosinophils % (auto) 3.5 %; Hematocrit (blood only) 48.6 % (42-52); Immature Granulocytes # (auto) 0.01 K/uL (0.00-0.02); Immature Granulocytes % (auto) 0.1 %; Lymphocytes # (auto) 1.21 K/uL (1.2-3.4); Lymphocytes % (auto) 15.8 %; Mean Corpuscular Hemoglobin 31.2 pg (25-34); Mean Corpuscular Volume 89.2 fL (80-100); Mean Platelet Volume 10.1 fL (7.4-10.4); Monocytes # (auto) 0.72 K/uL (0.11-0.59); Monocytes % (auto) 9.4 %; Neutrophils # (auto) 5.41 K/uL (1.4-6.5); Neutrophils % (auto) 70.9 %; Platelet Count 179 K/uL (130-400); RDW Standard Deviation 41.9 fL (36.4-46.3); Red Blood Count 5.45 M/uL (4.7-6.1); White Blood Count 7.64 K/uL (4.8-10.8)
[2021-07-18 11:04] LABS: Partial Thromboplastin Time 25.9 Seconds (21.0-31.0); Prothrombin Time 10.3 Seconds (9.0-12.0)
[2021-07-18 11:17] LABS: Alanine Aminotransferase 23 (12-78); Albumin Level 3.8 gm/dl (3.4-5.0); Aspartate Aminotransferase 18 U/L (15-37); BUN Creatinine Ratio 9.7 (10-20); Blood Urea Nitrogen 10 mg/dl (7-18); Calcium 9.3 mg/dl (8.5-10.1); Carbon Dioxide 28 mmol/L (21-32); Chloride 108 mmol/L (98-107); Creatinine Clr Calc Pharmacy 90.2 ml/min; Est GFR (Non-African American) 83.7 ml/min; Glucose 99 mg/dl (70-99); Potassium 3.8 mmol/L (3.5-5.1); Sodium 139 mmol/L (136-145)
[2021-07-18 11:23] LABS: Alkaline Phosphatase 71 U/L (45-117); Bilirubin,Total 1.9 mg/dl (0.2-1); Globulin 3.7 gm/dl (2.5-4.0); Total Protein 7.5 gm/dl (6.4-8.2); Troponin I < 0.015 ng/ml (0-0.045)
--- NOTE | 2021-07-18 11:32 | XRay Report ---
XR chest 1V portable CLINICAL HISTORY: Chest Pain. COMPARISON STUDY: 01/27/2020 TECHNIQUE: 1 view of the chest FINDINGS: Single frontal view of the chest demonstrates the heart size to be within normal limits status post p revious cardiothoracic surgery. There has been interval placement of a dual lead permanent cardiac pa cer. There is again asymmetric elevation of the left hemidiaphragm with bowel loops seen superimposed over the left lower lobe. The lungs are otherwise clear of alveolar opacities. There is no evidence for pleural effusion. There is no evidence for vascular congestion. There is no acute osseous patholo gy. IMPRESSION: No acute cardiopulmonary disease. ACT 112: Negative or not required by law. Electronically signed by: Nikunj Ferrara M.D. 07/18/2021 11:31 AM
[2021-07-18] MEDS ORDERED: NITROGLYCERIN 2% OINTMENT 30GM TUBE EXT ONE (12:56)
--- NOTE | 2021-07-18 14:05 | History & Physical Report ---
Date of Service July 18, 2021 Assessment & Plan (1) Left-sided chest pain: Plan: Pt presents with the acute onset of left-sided chest pain - complicated cardiac history with a recent PE and PPM placement. - Admit for observation on telemetry - Serial troponins - Repeat EKG in AM - Consult cardiology for additional recommendations - Continue Eliquis due to history of atrial fibrillation/recent PE (2) HTN (hypertension): Plan: Current BP well-controlled - continue home meds (3) Cardiomyopathy due to chemotherapy: (4) Atrial fibrillation: (5) Pulmonary embolism: Plan: Continue home meds as appropriate. Follow labs. Pt seen and reviewed with attending physician, Dr. Griffin. Plan of care discussed and as outlined above. 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 Pt underwent PPM placement at [facility] on 06/19/21 and was discharged home. He was admitted to [facility] 06/21-06/24/21 with acute PE and concern for infection over pacer incision site. His Eliquis was temporarily increased and he was put on IV antibiotics that were converted to oral Augment at discharge. He reports that he had done well since discharge until he woke up this morning around 7:30 am with left-sided chest pain. The pain radiates through to the posterior left shoulder and down the posterior left arm. He describes the pain as stabbing and similar to pain he had with pleurisy previously but slightly different. He called cardiology at [facility] who recommended he come to the ED for evaluation. He has noted associated SOB and occasional palpitations with "fluttering" at times. Pain is worse with lying flat and with deep breathing. It is also worse with exertion but pt thinks that this is more related to the increased breathing with resultant pain. He has a MATTHEW now but attributes this to the nitro given in the ED. No change in the chest pain with nitro. Most recent ECHO done 06/21/21 at [facility] - LVEF 45%, pacemaker wire in the right ventricle, RV systolic function qualitatively normal, mild TR, no pericardial effusion. Allergies Allergy/AdvReac Type Severity Reaction Status Date / Time ciprofloxacin [From Cipro] Allergy Intermediate Rash Verified 07/18/21 11:25 duloxetine [From Cymbalta] Allergy Intermediate unable to Verified 07/18/21 11:25 void Home Medications Medication Instructions Recorded Confirmed Type pravastatin 40 mg tablet 40 mg PO HS 04/04/18 07/18/21 History baclofen 10 mg tablet 10 mg PO HS PRN 01/27/20 07/18/21 History cyanocobalamin (vitamin B-12) 500 1,000 mcg PO QAM 01/27/20 07/18/21 History mcg tablet (Vitamin B-12) hydroxyzine HCl 25 mg tablet 25 mg PO Q6H PRN 01/27/20 07/18/21 History apixaban 5 mg tablet (Eliquis) 5 mg PO BID 07/18/21 07/18/21 History levetiracetam 500 mg tablet 1,000 mg PO BID 07/18/21 07/18/21 History metoprolol succinate 50 mg 50 mg PO DAILY 07/18/21 07/18/21 History tablet,extended release 24 hr Past Med/Surg History Medical History Atrial fibrillation Cardiomyopathy due to chemotherapy Chronic pain syndrome Depression Grand mal seizure disorder History of rectal bleeding recent adm to [facility], found to have hemorrhoids, hgb stable at 15 HLD (hyperlipidemia) HTN (hypertension) IBS (irritable bowel syndrome) Malignant thymoma Pericardial effusion with cardiac tamponade PTSD (post-traumatic stress disorder) Pulmonary embolism Raynaud's disease Syncopal episodes Tachy-maryan syndrome Surgical History H/O abdominal surgery History of back surgery S/P placement of cardiac pacemaker S/P thoracotomy Status post creation of pericardial window Family History Other No significant family history Social History Smoking Status: Never smoker Hx Alcohol Use: Yes Alcohol type: beer Hx Substance Use: No Preferred Language: Moldovan Communication Ability: Effective 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: No Beliefs That Will Affect Care: None Current Living Situation: Spouse and Other Current Living Situation Comment: adult child and two dogs Feels Safe at Home: Yes Assistive Devices: None Review of Systems Review of Systems: All systems reviewed & are unremarkable except as noted in HPI & below Constitutional: + fatigue (mild); no fever, no chills and no sweats Eyes: no diplopia and no worsening vision Ear, Nose, Mouth, Throat: + nasal discharge (mild); no nasal congestion, no sinus pain/pressure and no sore throat Respiratory: + cough (minimal) and + dyspnea on exertion; no chest congestion, no hemoptysis and no wheezing Gastrointestinal: + diarrhea/loose stools (chronic issue); no heartburn, no nausea, no vomiting, no dysphagia and no blood in stools Genitourinary: no dysuria, no urinary frequency or no hematuria Musculoskeletal: no back pain, no neck pain, no muscle weakness and no body aches Integumentary: no rash and no yellowing of the skin Neurologic: + headache(s); no generalized weakness, no seizure-like activity, no dizziness and no syncope Psychiatric: no depression and no anxiety Physical Exam Constitutional: well developed and well nourished; no acute distress Eyes: PERRL, conjunctivae normal, anicteric sclerae ENMT: external ear and nose normal, oropharynx normal Neck: trachea midline Respiratory: no respiratory distress and no labored breathing Auscultation: lungs clear to auscultation bilaterally; no rales, no rhonchi and no wheezes Cardiovascular: Rate/Rhythm: regular rate and regular rhythm Heart Sounds: no gallop, no murmur and no cardiac rub Vessels: dorsalis pedis pulses present and radial pulses present Extremities: no calf tenderness and no pedal edema No chest wall tenderness Gastrointestinal (Abdomen): Inspection/Auscultation: normal bowel sounds; abdomen not distended Percussion/Palpation: abdomen soft; abdomen nontender Musculoskeletal: Head/Neck/Chest: normocephalic, head atraumatic and neck supple Skin: no rashes and no jaundice Neurologic: moves all extremities; no focal motor deficits Psychiatric: A+Ox3, euthymic affect Results & Data Results & Data ([facility]) Vital Signs (Past 12 Hours) Vital Signs Temp Pulse Pulse Resp BP BP Pulse Ox 07/18/21 11:31 65 17 129/72 98 07/18/21 10:33 36.4 C L 73 20 127/76 97 Laboratory Results Laboratory Results - last 24 hr 07/18/21 07/18/21 07/18/21 10:46 10:46 10:46 WBC 7.64 RBC 5.45 Hgb 17.0 Hct 48.6 MCV 89.2 MCH 31.2 MCHC 35.0 RDW Std Deviation 41.9 RDW Coeff of Lucila 13.0 Plt Count 179 MPV 10.1 Immature Gran % (Auto) 0.1 Neut % (Auto) 70.9 Lymph % (Auto) 15.8 Teller % (Auto) 9.4 Eos % (Auto) 3.5 Baso % (Auto) 0.3 Neut # (Auto) 5.41 Lymph # (Auto) 1.21 Teller # (Auto) 0.72 H Eos # (Auto) 0.27 Baso # (Auto) 0.02 Immature Gran # (Auto) 0.01 PT 10.3 INR 1.0 APTT 25.9 PTT Ratio 1.0 Sodium 139 Potassium 3.8 Chloride 108 H Carbon Dioxide 28 Anion Gap 3.0 BUN 10 Creatinine 1.03 Est Cr Clr Drug Dosing 90.2 Est GFR ( Amer) 97.0 Est GFR (Non-Af Amer) 83.7 BUN/Creatinine Ratio 9.7 L Glucose 99 Calcium 9.3 Total Bilirubin 1.9 H AST 18 ALT 23 Alkaline Phosphatase 71 Troponin I < 0.015 Total Protein 7.5 Albumin 3.8 Globulin 3.7 Albumin/Globulin Ratio 1.0 SARS-CoV-2, RNA, NAAT 07/18/21 13:05 WBC RBC Hgb Hct MCV MCH MCHC RDW Std Deviation RDW Coeff of Lucila Plt Count MPV Immature Gran % (Auto) Neut % (Auto) Lymph % (Auto) Teller % (Auto) Eos % (Auto) Baso % (Auto) Neut # (Auto) Lymph # (Auto) Teller # (Auto) Eos # (Auto) Baso # (Auto) Immature Gran # (Auto) PT INR APTT PTT Ratio Sodium Potassium Chloride Carbon Dioxide Anion Gap BUN Creatinine Est Cr Clr Drug Dosing Est GFR ( Amer) Est GFR (Non-Af Amer) BUN/Creatinine Ratio Glucose Calcium Total Bilirubin AST ALT Alkaline Phosphatase Troponin I Total Protein Albumin Globulin Albumin/Globulin Ratio SARS-CoV-2, RNA, NAAT NEGATIVE Diagnostic Findings Chest X-ray 07/18/21 - IMPRESSION: No acute cardiopulmonary disease. 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 No erythema or tenderness noted at pacer i ncision site. Patient reports left chest pain radiating to shoulder, associated with shortness of breath with minimal exertion, pain increased with deep breathing and lying back, improved with rest. Trend troponin, EKG at admission WNL, cardiology consult. On examination: GENERAL: Alert and oriented x3. NAD, on RA. HEENT: No pallor, no icterus. Pupils equal, round and reactive to light. Oral mucosa moist. NECK: No JVD, no neck masses. Chest: healed mid sternotomy scar, healing pacer incision site. no erythema. Pain not reproducible w/ palpation. HEART: S1 and S2 heard. Regular rate and rhythm. No murmur, no gallop. RESPIRATORY SYSTEM: Normal AP diameter. No accessory muscle use. No wheezing, no crackles. ABDOMEN: Soft, bowel sounds present, nontender, no distention. CENTRAL NERVOUS SYSTEM: No facial droop. Speech is clear. Obeys simple commands. Moves extremities. EXTREMITIES: No edema, no erythema seen. I have seen and examined the patient and have discussed the case with the provider above. I agree with the assessment and plan as stated.
[2021-07-18] MEDS ORDERED: NITROGLYCERIN SL 0.4 MG/TAB TAB SL PRN (16:44)
[2021-07-18] MEDS ORDERED: ACETAMINOPHEN 325 MG TAB PO PRN (16:44)
[2021-07-18] MEDS ORDERED: hydrOXYzine HCl 25 MG TAB PO PRN (16:44)
--- NOTE | 2021-07-18 18:17 | Emergency Department Note ---
History of Present Illness General Chief complaint: Chest Pain Stated complaint: LT SIDED CHEST PAIN Time Seen by Provider: 07/18/21 11:01 History of Present Illness Maximum Pain Intensity: 7 This is a 51-year-old male presenting to the emergency department for evaluation of left-sided chest pain radiating to his left shoulder and down the back of his left arm. The patient's symptoms began about two or 3 hours prior to arrival when he awoke from sleep today. He does not report injury or trauma. No fevers or chills. He does have a complicated cardiac history including atrial fibr illation, tachybradycardia syndrome, nonsustained V. tach, and intermittent complete heart block on outpatient monitoring. This did recently cause him to have a pacemaker placed 28 days ago at [facility]. The patient evidently developed a questionable pulmonary emboli on the right side after placement, and was started on Eliquis 25 days ago. The patient states his pain is sharp and constant. He did contact his cardiology team in [place], who referred him to the ER for further evaluation. Home Medications Medication Instructions Recorded Confirmed Type pravastatin 40 mg tablet 40 mg PO HS 04/04/18 07/18/21 History baclofen 10 mg tablet 10 mg PO HS PRN 01/27/20 07/18/21 History cyanocobalamin (vitamin B-12) 500 1,000 mcg PO QAM 01/27/20 07/18/21 History mcg tablet (Vitamin B-12) hydroxyzine HCl 25 mg tablet 25 mg PO Q6H PRN 01/27/20 07/18/21 History apixaban 5 mg tablet (Eliquis) 5 mg PO BID 07/18/21 07/18/21 History levetiracetam 500 mg tablet 1,000 mg PO BID 07/18/21 07/18/21 History metoprolol succinate 50 mg 50 mg PO DAILY 07/18/21 07/18/21 History tablet,extended release 24 hr Allergies Allergy/AdvReac Type Severity Reaction Status Date / Time ciprofloxacin [From Cipro] Allergy Intermediate Rash Verified 07/18/21 11:25 duloxetine [From Cymbalta] Allergy Intermediate unable to Verified 07/18/21 11:25 void Past Med/Surg History Medical History Atrial fibrillation Cardiomyopathy due to chemotherapy Chronic pain syndrome Depression Grand mal seizure disorder History of rectal bleeding recent adm to [facility], found to have hemorrhoids, hgb stable at 15 HLD (hyperlipidemia) HTN (hypertension) IBS (irritable bowel syndrome) Malignant thymoma Pericardial effusion with cardiac tamponade PTSD (post-traumatic stress disorder) Pulmonary embolism Raynaud's disease Syncopal episodes Tachy-maryan syndrome Surgical History H/O abdominal surgery History of back surgery S/P placement of cardiac pacemaker S/P thoracotomy Status post creation of pericardial window Family History Other No significant family history Social History Smoking Status: Never smoker Hx Alcohol Use: Yes Alcohol type: beer Hx Substance Use: No Preferred Language: Hungarian Communication Ability: Effective Machine 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 Required: No Beliefs That Will Affect Care: None Current Living Situation: Spouse and Other Current Living Situation Comment: adult child and two dogs Feels Safe at Home: Yes Assistive Devices: None Review of Systems A total of 10 systems reviewed and were otherwise negative Physical Exam Vital Signs Vital Signs - 24 hr 07/18/21 10:33 07/18/21 11:31 07/18/21 14:00 Temperature 36.4 C L Temperature Source Oral Pulse Rate 73 Pulse Rate [Apical] 65 76 Respiratory Rate 20 17 18 Respiratory Effort / Characteristics Non-Labored Spontaneous Respiratory Depth Normal Respiratory Pattern Regular Blood Pressure 127/76 Blood Pressure [Right Arm] 129/72 102/76 Blood Pressure Mean 93 Blood Pressure Mean [Right Arm] 91 84 Pulse Oximetry 97 98 96 Oxygen Delivery Method Room Air Room Air Room Air Sepsis Recent Fever Within 48 Hours No Sepsis New/Unexplained Change in Mental Status No Sepsis Action Taken by Nursing No Action Required VITALS: Vitals are noted on the nurse's note and reviewed by myself. Vital signs stable. GENERAL: Well-developed, well-nourished, white male, who is in no acute distress and resting comfortably. Patient is cooperative with the examination. HEAD: Normocephalic atraumatic. HEART: Regular rate and rhythm without murmurs gallops or rubs. LUNGS: Clear to auscultation bilaterally without wheezes, rales or rhonchi. No retractions or accessory muscle use. ABDOMEN: Positive normal bowel sounds x 4. Soft, nontender, without masses or organomegaly. No guarding or rebound tenderness. MUSCULOSKELETAL: No muscle atrophy, erythema, or edema noted. Full range of motion in all extremities. NEURO: Patient was alert and oriented to person place and time. CN II through XII grossly intact. SKIN: The skin was with significant erythema, edema, or palpable cord in the left upper chest wall. No tenderness directly over the pacemaker. Course Administered Medications Acetaminophen (Acetaminophen 325 Mg Tab) 650 mg PO Q4H PRN PRN Reason: Pain or Fever Stop: 08/17/21 16:43 Last Admin: 07/18/21 18:06 Dose: 650 mg Documented by: [id number] Discontinued Medications Nitroglycerin (Nitroglycerin 2% Ointment 30gm Tube) 1 inch EXT NOW ONE Stop: 07/18/21 12:57 Last Admin: 07/18/21 13:07 Dose: 1 inch Documented by: [id number] Medical Decision Making Differential Diagnosis Differential diagnosis includes, but is not limited to: Myocardial infarction, dysrhythmia, pericarditis, pneumothorax, aortic aneurysm/dissection, DVT/PE, anxiety, GERD, PUD, electrolyte imbalance, thyroid disorder, pneumonia, bronchitis, pancreatitis, and others Laboratory Data Result diagrams: 07/18/21 10:46 07/18/21 10:46 Lab Results 07/18/21 07/18/21 07/18/21 Range/Units 10:46 10:46 10:46 WBC 7.64 (4.8-10.8) K/uL RBC 5.45 (4.7-6.1) M/uL Hgb 17.0 (14.0-18.0) g/dL Hct 48.6 (42-52) % MCV 89.2 (80-100) fL MCH 31.2 (25-34) pg MCHC 35.0 (32-36) g/dL RDW Std Deviation 41.9 (36.4-46.3) fL RDW Coeff of Lucila 13.0 (11.5-14.5) % Plt Count 179 (130-400) K/uL MPV 10.1 (7.4-10.4) fL Immature Gran % (Auto) 0.1 % Neut % (Auto) 70.9 % Lymph % (Auto) 15.8 % [place] % (Auto) 9.4 % Eos % (Auto) 3.5 % Baso % (Auto) 0.3 % Neut # (Auto) 5.41 (1.4-6.5) K/uL Lymph # (Auto) 1.21 (1.2-3.4) K/uL [place] # (Auto) 0.72 H (0.11-0.59) K/uL Eos # (Auto) 0.27 (0-0.5) K/uL Baso # (Auto) 0.02 (0-0.2) K/uL Immature Gran # (Auto) 0.01 (0.00-0.02) K/uL PT 10.3 (9.0-12.0) Seconds INR 1.0 (0.9-1.1) APTT 25.9 (21.0-31.0) Seconds PTT Ratio 1.0 Sodium 139 (136-145) mmol/L Potassium 3.8 (3.5-5.1) mmol/L Chloride 108 H (98-107) mmol/L Carbon Dioxide 28 (21-32) mmol/L Anion Gap 3.0 (3-11) BUN 10 (7-18) mg/dl Creatinine 1.03 (0.6-1.4) mg/dl Est Cr Clr Drug Dosing 90.2 ml/min Est GFR ( Amer) 97.0 ml/min Est GFR (Non-Af Amer) 83.7 ml/min BUN/Creatinine Ratio 9.7 L (10-20) Glucose 99 (70-99) mg/dl Calcium 9.3 (8.5-10.1) mg/dl Total Bilirubin 1.9 H (0.2-1) mg/dl AST 18 (15-37) U/L ALT 23 (12-78) Alkaline Phosphatase 71 (45-117) U/L Troponin I < 0.015 (0-0.045) ng/ml Total Protein 7.5 (6.4-8.2) gm/dl Albumin 3.8 (3.4-5.0) gm/dl Globulin 3.7 (2.5-4.0) gm/dl Albumin/Globulin Ratio 1.0 (0.9-2) SARS-CoV-2, RNA, NAAT (NEGATIVE) 07/18/21 Range/Units 13:05 WBC (4.8-10.8) K/uL RBC (4.7-6.1) M/uL Hgb (14.0-18.0) g/dL Hct (42-52) % MCV (80-100) fL MCH (25-34) pg MCHC (32-36) g/dL RDW Std Deviation (36.4-46.3) fL RDW Coeff of Lucila (11.5-14.5) % Plt Count (130-400) K/uL MPV (7.4-10.4) fL Immature Gran % (Auto) % Neut % (Auto) % Lymph % (Auto) % [place] % (Auto) % Eos % (Auto) % Baso % (Auto) % Neut # (Auto) (1.4-6.5) K/uL Lymph # (Auto) (1.2-3.4) K/uL [place] # (Auto) (0.11-0.59) K/uL Eos # (Auto) (0-0.5) K/uL Baso # (Auto) (0-0.2) K/uL Immature Gran # (Auto) (0.00-0.02) K/uL PT (9.0-12.0) Seconds INR (0.9-1.1) APTT (21.0-31.0) Seconds PTT Ratio Sodium (136-145) mmol/L Potassium (3.5-5.1) mmol/L Chloride (98-107) mmol/L Carbon Dioxide (21-32) mmol/L Anion Gap (3-11) BUN (7-18) mg/dl Creatinine (0.6-1.4) mg/dl Est Cr Clr Drug Dosing ml/min Est GFR ( Amer) ml/min Est GFR (Non-Af Amer) ml/min BUN/Creatinine Ratio (10-20) Glucose (70-99) mg/dl Calcium (8.5-10.1) mg/dl Total Bilirubin (0.2-1) mg/dl AST (15-37) U/L ALT (12-78) Alkaline Phosphatase (45-117) U/L Troponin I (0-0.045) ng/ml Total Protein (6.4-8.2) gm/dl Albumin (3.4-5.0) gm/dl Globulin (2.5-4.0) gm/dl Albumin/Globulin Ratio (0.9-2) SARS-CoV-2, RNA, NAAT NEGATIVE (NEGATIVE) Imaging Data Radiologist's Impression: Chest X-Ray 07/18/21 10:36 XR chest 1V portable CLINICAL HISTORY: Chest Pain. COMPARISON STUDY: 01/27/2020 TECHNIQUE: 1 view of the chest FINDINGS: Single frontal view of the chest demonstrates the heart size to be within normal limits status post previous cardiothoracic surgery. There has been interval placement of a dual lead permanent cardiac pacer. There is again asymmetric elevation of the left hemidiaphragm with bowel loops seen superimposed over the left lower lobe. The lungs are otherwise clear of alveolar opacities. There is no evidence for pleural effusion. There is no evidence for vascular congestion. There is no acute osseous pathology. IMPRESSION: No acute cardiopulmonary disease. ACT 112: Negative or not required by law. Electronically signed by: Nikunj Ferrara M.D. 07/18/2021 11:31 AM ECG Data Attestation: I personally reviewed and interpreted this ECG as follows: Indication: + chest pain Additional Comments: Normal sinus rhythm @71 bpm Nonspecific T wave abnormality Abnormal ECG When compared with ECG of 28-JAN-2020 06:44, Premature ventricular complexes are no longer Present Nonspecific T wave abnormality now evident in Anterior leads MDM Narrative Physical exam and history were performed. Nursing notes, EMR, and Medication List were personally reviewed. Patient appears to have atypical left-sided chest pain bringing him to the ER. EKG was performed and does appear slightly different from EKG performed in January 2020, however he did have recent pacemaker placement. He does not have evidence of acute ST elevation or pericarditis on EKG. IV access was established and labs were obtained. He was hydrated with normal saline and Nitropaste was applied. An order was placed for continuous cardiac monitoring. The monitor shows a rate of 71 with normal sinus rhythm. The patient's blood work is as above and was reviewed. He does not have a significantly elevated white blood cell count, gross anemia, bandemia, or significant electrolyte imbalance. Transaminases are not diagnostic. Covid is negative. Chest x-ray was reviewed by myself and radiology showing no obvious acute process. His pacemaker leads appear to be intact and appropriately placed. The case was discussed with my attending physician, Dr. Kelly. We do have concern as the patient's heart score places him at a moderate risk for cardiac event. I did attempt to reach out to the [facility] cardiology team locally, however after several hours of attempts we were not able to reach them. Ultimately the patient history is concerning and he does not appear well for discharge. The case was discussed with the hospitalist team who agreed to evaluate the patient here in the ER. Please see their dictation for further patient course, plan, and disposition. The chart was completed utilizing [employer] and [employer] Voice Recognition Software. Grammatical errors, random word insertions, pronoun errors, and incomplete sent ences are an occasional consequence of this system due to software limitations, ambient noise, and hardware issues. Any formal questions or concerns about the content, text, or information contained within the body of this dictation should be directly addressed to the provider for clarification. . Impression & Plan Atypical chest pain, Cardiac pacemaker in situ Discharge Plan Visit Data Chief Complaint: Chest Pain Stated Complaint: LT SIDED CHEST PAIN ED Provider: Kranthi Kelly ED Midlevel Provider: Piyush Oliveros Discharge Problem: Atypical chest pain, Cardiac pacemaker in situ Discharge Instructions Interventions: ED Discharge Assessment Last Done: 07/18/21 16:24
--- NOTE | 2021-07-18 18:22 | Electrocardiogram Report ---
Test Reason : Blood Pressure : / mmHG Vent. Rate : 071 BPM Atrial Rate : 071 BPM P-R Int : 158 ms QRS Dur : 088 ms QT Int : 396 ms P-R-T Axes : 024 039 032 degrees QTc Int : 430 ms Normal sinus rhythm Nonspecific T wave abnormality Abnormal ECG When compared with ECG of 28-JAN-2020 06:44, Premature ventricular complexes are no longer Present Nonspecific T wave abnormality now evident in Anterior leads Confirmed by Christophe Kitchen ([id number]) on 07/18/2021 6:22:09 PM Referred By: Confirmed By:Angelo Kitchen
[2021-07-18] MEDS: levETIRAcetam 500 MG TAB PO SCH (20:31)
[2021-07-18] MEDS: APIXABAN 5 MG TABLET PO SCH (20:32)
[2021-07-18] MEDS ORDERED: PRAVASTATIN SOD 40 MG TAB PO SCH (21:00)
[2021-07-19 07:49] LABS: Basophils # (auto) 0.02 K/uL (0-0.2); Basophils % (auto) 0.3 %; Eosinophils # (auto) 0.38 K/uL (0-0.5); Eosinophils % (auto) 5.6 %; Hematocrit (blood only) 45.7 % (42-52); Hemoglobin 15.9 g/dL (14.0-18.0); Immature Granulocytes # (auto) 0.01 K/uL (0.00-0.02); Immature Granulocytes % (auto) 0.1 %; Lymphocytes # (auto) 1.27 K/uL (1.2-3.4); Lymphocytes % (auto) 18.6 %; Mean Corpuscular Hemoglobin 30.9 pg (25-34); Mean Corpuscular Hgb Conc 34.8 g/dL (32-36); Mean Corpuscular Volume 88.7 fL (80-100); Mean Platelet Volume 10.5 fL (7.4-10.4); Monocytes # (auto) 0.87 K/uL (0.11-0.59); Monocytes % (auto) 12.8 %; Neutrophils # (auto) 4.27 K/uL (1.4-6.5); Neutrophils % (auto) 62.6 %; Platelet Count 152 K/uL (130-400); RDW Coefficient of Variation 12.9 % (11.5-14.5); RDW Standard Deviation 41.5 fL (36.4-46.3); Red Blood Count 5.15 M/uL (4.7-6.1); White Blood Count 6.82 K/uL (4.8-10.8)
[2021-07-19 08:12] LABS: Albumin Level 3.5 gm/dl (3.4-5.0); BUN Creatinine Ratio 15.5 (10-20); Calcium 9.1 mg/dl (8.5-10.1); Est GFR (African American) 104.3 ml/min; Potassium 3.6 mmol/L (3.5-5.1)
[2021-07-19 08:17] LABS: Albumin Globulin Ratio 1.1 (0.9-2); Bilirubin,Total 2.1 mg/dl (0.2-1); Globulin 3.3 gm/dl (2.5-4.0); Total Protein 6.8 gm/dl (6.4-8.2)
[2021-07-19] MEDS ORDERED: CYANOCOBALAMIN 500 MCG TABLET (VITAMIN B-12) PO SCH (09:00)
[2021-07-19] MEDS ORDERED: METOPROLOL SUCC 50MG EXT REL TAB PO SCH (09:00)
[2021-07-19] MEDS ORDERED: IBUPROFEN 200 MG TAB PO STA (09:09)
[2021-07-19] MEDS: levETIRAcetam 500 MG TAB PO SCH (09:50)
[2021-07-19] MEDS: APIXABAN 5 MG TABLET PO SCH (09:50)
--- NOTE | 2021-07-19 11:37 | Cardiology Consultation ---
Date of Consultation July 19, 2021 Assessment & Plan (1) Atypical chest pain: (2) Cardiac pacemaker in situ: (3) Atrial fibrillation: 1. Chest discomfort: This certainly appears to be musculoskeletal, it does not seem to involve the device site which looks good, it is very unlikely it is a pulmonary embolism since he has been on anticoagulation and has no other symptoms of it and it does not appear to be pleuritic. I would treated conservatively, perhaps with NSAIDs, he has an appointment for July 30, 2020 at [facility] which should be sufficient. If it worsens over the weekend we can consider CT scanning by do not think it is necessary now. 2. Pacemaker: On monitoring his pacemaker is working well and the site looks good 3. Atrial fibrillation: He has a history of atrial fibrillation and is on anticoagulation but has not had that here. 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 He had a mild cardiomyopathy which by his records subsequently resolved, although an echocardiogram done June 21, [address] [facility] is reported to show an ejection fraction of 45% with no pericardial effusion. He was evaluated January 28, [address] Ewing where a large pericardial effusion was identified and he was transferred to [facility] for treatment. I believe a pericardial window is initial electrocardiogram was placed at [place]. He does have paroxysmal atrial fibrillation and is treated with Eliquis. He had bradycardia identified on monitoring through [facility] and there were plans for pacemaker implantation when he had a syncopal episode and was transferred to [facility] on June 16, 2021. I believe he had periods of complete heart block and a pacemaker was placed June 19, 2021. He was admitted at [facility] from June 21, 2021 through June 24, 2021 with a PE and I believe concerned about a pacemaker site infection but based on the patient's description it sounds like cellulitis. He was treated with antibiotics and I believe an increase in his Eliquis dose. He presented on July 18, 2021 with chest discomfort. The discomfort is left-sided with radiation to the left shoulder and left arm, it is described as a stabbing pain and has a respiratory component. His presenting electrocardiogram showed some minor nonspecific ST-T abnormalities and no evidence of pacing, another electrocardiogram done July 19, 2021 showed atrial pacing throughout at 60 bpm with similar minor [address]-T findings. Troponins have been undetectable, chest x-ray shows his dual-chamber pacemaker in place but no significant abnormality. The discomfort has continued and he is still having it with movement of his left arm and with deep breathing. It is predominantly in his left prepectoral region not in his left arm or back. There is been little change since he arrived in the emergency room. Allergies Allergy/AdvReac Type Severity Reaction Status Date / Time ciprofloxacin [From Cipro] Allergy Intermediate Rash Verified 07/18/21 11:25 duloxetine [From Cymbalta] Allergy Intermediate unable to Verified 07/18/21 11:25 void Home Medications Medication Instructions Recorded Confirmed Type pravastatin 40 mg tablet 40 mg PO HS 04/04/18 07/18/21 History baclofen 10 mg tablet 10 mg PO HS PRN 01/27/20 07/18/21 History cyanocobalamin (vitamin B-12) 500 1,000 mcg PO QAM 01/27/20 07/18/21 History mcg tablet (Vitamin B-12) hydroxyzine HCl 25 mg tablet 25 mg PO Q6H PRN 01/27/20 07/18/21 History apixaban 5 mg tablet (Eliquis) 5 mg PO BID 07/18/21 07/18/21 History levetiracetam 500 mg tablet 1,000 mg PO BID 07/18/21 07/18/21 History metoprolol succinate 50 mg 50 mg PO DAILY 07/18/21 07/18/21 History tablet,extended release 24 hr Patient History Medical History Atrial fibrillation Cardiomyopathy due to chemotherapy Chronic pain syndrome Depression Grand mal seizure disorder History of rectal bleeding recent adm to [facility], found to have hemorrhoids, hgb stable at 15 HLD (hyperlipidemia) HTN (hypertension) IBS (irritable bowel syndrome) Malignant thymoma Pericardial effusion with cardiac tamponade PTSD (post-traumatic stress disorder) Pulmonary embolism Raynaud's disease Syncopal episodes Tachy-maryan syndrome Surgical History H/O abdominal surgery History of back surgery S/P placement of cardiac pacemaker S/P thoracotomy Status post creation of pericardial window Family History Other No significant family history Social History Smoking Status: Former smoker Second Hand Exposure: No; Do You Dip or Chew Tobacco: No; Hx Alcohol Use: Yes Alcohol type: beer Hx Substance Use: No Preferred Language: Mongolian Communication Ability: Effective Card Decorator Required: No Beliefs That Will Affect Care: None Current Living Situation: Spouse Current Living Situation Comment: adult child and two dogs Other Information That Helps Us Care for You: No Feels Safe at Home: Yes Safety Concerns: Feels Safe At This Time Assistive Devices: None Review of Systems Review of Systems: All systems reviewed & are unremarkable except as noted in HPI & below Physical Exam Physical Exam: Constitutional: Alert, cooperative and in no distress. HEENT: Unremarkable Neck: No jugular venous distention, carotid pulses are normal and equal bilaterally without bruits. Pulmonary: Clear to auscultation bilaterally. Cardiac: Regular rhythm with no murmur, gallop or rub. Abdomen: Soft, nontender with normal bowel sounds. Extremities: No edema. Distal pulses intact. Neurologic: No focal findings. Gait is steady. Skin: The device site is well-healed without erythema, swelling or tenderness. No rash, ecchymoses or petechiae. Results & Data ([facility]) Vital Signs (Past 12 Hours) Vital Signs Pulse Resp BP 07/19/21 04:00 77 15 97/66 L 07/19/21 03:00 60 15 89/59 L 07/19/21 02:00 60 13 93/60 L 07/19/21 01:00 60 15 93/58 L 07/19/21 00:00 60 15 105/68 PG Care Time/CCT Total # of Minutes Spent Total Time Spent with Patient: Total time spent is greater than 50% in coordination of care (as documented) at patient's floor/unit and/or counseling patient: Coding Level of Care Code 53029 Office/OBS Consult Lvl 4 Diagnoses Atypical chest pain R07.89 Cardiac pacemaker in situ Z95.0 Atrial fibrillation I48.91
--- NOTE | 2021-07-19 12:16 | Discharge Summary ---
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 Pt underwent PPM placement at [facility] [place] on 06/19/21 and was discharged home. He was admitted to [facility] 06/21-06/24/21 with acute PE and concern for infection over pacer incision site. His Eliquis was temporarily increased and he was put on IV antibiotics that were converted to oral Augment at discharge. He reports that he had done well since discharge until he woke up this morning around 7:30 am with left-sided chest pain. The pain radiates through to the posterior left shoulder and down the posterior left arm. He describes the pain as stabbing and similar to pain he had with pleurisy previously but slightly different. He called cardiology at [facility] [place] [facility] who recommended he come to the ED for evaluation. He has noted associated SOB and occasional palpitations with "fluttering" at times. Pain is worse with lying flat and with deep breathing. It is also worse with exertion but pt thinks that this is more related to the increased breathing with resultant pain. He has a MATTHEW now but attributes this to the nitro given in the ED. No change in the chest pain with nitro. Most recent ECHO done 06/21/[address] [facility] - LVEF 45%, pacemaker wire in the right ventricle, RV systolic function qualitatively normal, mild TR, no p ericardial effusion. Admission Exam Per Admitting Provider Constitutional: well developed and well nourished; no acute distress Eyes: PERRL, conjunctivae normal, anicteric sclerae ENMT: external ear and nose normal, oropharynx normal Neck: trachea midline Respiratory: no respiratory distress and no labored breathing Auscultation: lungs clear to auscultation bilaterally; no rales, no rhonchi and no wheezes Cardiovascular: Rate/Rhythm: regular rate and regular rhythm Heart Sounds: no gallop, no murmur and no cardiac rub Vessels: dorsalis pedis pulses present and radial pulses present Extremities: no calf tenderness and no pedal edema No chest wall tenderness Gastrointestinal (Abdomen): Inspection/Auscultation: normal bowel sounds; abdomen not distended Percussion/Palpation: abdomen soft; abdomen nontender Musculoskeletal: Head/Neck/Chest: normocephalic, head atraumatic and neck supple Skin: no rashes and no jaundice Neurologic: moves all extremities; no focal motor deficits Psychiatric: A+Ox3, euthymic affect Principal Diagnosis Left-sided chest pain likely irritation from recently implanted pacemaker Ruled out ACS Discharge Exam GENERAL: Alert and oriented x3. NAD, on RA. HEENT: No pallor, no icterus. Pupils equal, round and reactive to light. Oral mucosa moist. NECK: No JVD, no neck masses. Chest: healed mid sternotomy scar, healing pacer incision site. no erythema. Pain not reproducible w/ palpation. HEART: S1 and S2 heard. Regular rate and rhythm. No murmur, no gallop. RESPIRATORY SYSTEM: Normal AP diameter. No accessory muscle use. No wheezing, no crackles. ABDOMEN: Soft, bowel sounds present, nontender, no distention. CENTRAL NERVOUS SYSTEM: No facial droop. Speech is clear. Obeys simple commands. Moves extremities. EXTREMITIES: No edema, no erythema seen. Discharge Data Allergies Allergy/AdvReac Type Severity Reaction Status Date / Time ciprofloxacin [From Cipro] Allergy Intermediate Rash Verified 07/18/21 11:25 duloxetine [From Cymbalta] Allergy Intermediate unable to Verified 07/18/21 11:25 void Consultations 07/18/21 13:21 ED Decision to Admit Stat 07/18/21 14:30 Consult Cardiology Routine Hospital Course (1) Atypical chest pain: (2) Cardiac pacemaker in situ: 51 y/o male with a history of thymoma in remission, history of left lobectomy, cardiomyopathy 2/2 chemotherapy, atypical chest pain, post thoracotomy pain syndrome, HTN, atrial fibrillation (on chronic Eliquis), systolic HF, pericardial effusion s/p window (2019), 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 No erythema or tenderness noted at pacer incision/placement site. Patient reports left chest pain radiating to shoulder, associated with shortness of breath with minimal exertion, pain increased with deep breathing and lying back, improved with rest. EKG at presentation and following morning negative for any acute ST or T changes. Troponin trend negative. Cardiology evaluated the patient and okayed for discharge. Patient is still has similar pain, likely could be due to irritation from the recently implanted pacer. No new events while in hospital. We will discharge him on few days worth of ibuprofen. Patient's WBC and temperature WNL while inpatient. Patient being discharged home with following instruction at the point of discharge: Follow-up with your primary care physician within a week time. You are being discharged on ibuprofen for 7 days for pain control, take them 3 times a day after food. Also will give you some GI protective medications for the same duration. Take medications as prescribed. Total Time Total Time Spent Total Time Spent (In Minutes): 35 Discharge Plan Discharge Items Patient Disposition: Home - Self-Care Reason For Visit: CHEST PAIN Discharge Diagnosis: Left-sided chest pain likely irritation from recently implanted pacemaker Ruled out ACS Activity: Resume your previous activity Non-emergency contact: Primary Care Provider Call non-emergency contact if: you have any medication questions, your symptoms worsen, your pain is worsening, your pain is unusual for you, your temperature is above 101, your wound has increased redness, your wound has increased drainage and your wound pain has increased Follow-up/Referrals: Cheyanne Templeton PA-C [Primary Care Provider] - Diet: Heart Healthy Addtl Attending Provider Instructions: Follow-up with your primary care physician within a week time. You are being discharged on ibuprofen for 7 days for pain control, take them 3 times a day after food. Also will give you some GI protective medications for the same duration. Take medications as prescribed. Pending Studies at Discharge: No Stand-Alone Forms: My [facility] [employer], Smoking Cessation Medications and DC Order Prescriptions: New ibuprofen 400 mg tablet 400 mg PO Q8H 7 Days Qty: 21 RF: 0 pantoprazole 40 mg tablet,delayed release (DR/EC) 40 mg PO DAILY 7 Days Qty: 7 RF: 0 Continued pravastatin 40 mg Tablet 40 mg PO HS RF: 0 cyanocobalamin (vitamin B-12) [Vitamin B-12] 500 mcg Tablet 1,000 mcg PO QAM RF: 0 baclofen 10 mg tablet 10 mg PO HS PRN (Reason: Muscle Spasm) RF: 0 hydroxyzine HCl 25 mg tablet 25 mg PO Q6H PRN (Reason: Anxiety) RF: 0 metoprolol succinate 50 mg tablet extended release 24 hr 50 mg PO DAILY RF: 0 levetiracetam 500 mg tablet 1,000 mg PO BID RF: 0 Eliquis 5 mg tablet 5 mg PO BID RF: 0 Discharge Orders: Discharge Order (Routine); Ordered 07/19/21 Ordered By: Leo Griffin Admission Data Admit Date/Time: 07/18/21 14:29 Attending Provider: Leo Griffin Admit Provider: Leo Griffin Primary Care Provider: Cheyanne Templeton Other Providers: Ana Jacobsen ; Leonidas Suarez ; Amos Mcdermott ; Juliette Marie ; Brandy Sandra ; Janeen Stephens ; Deedee Zamudio ; Simone Hoffman ; Keith Lepe ; Chuy Coleman ; Megan Ladd ; Suzy Grijalva ; Khoa Zuniga ; Maria Esther Elizabeth ; Payton Anne ; Charles Chapman ; Hilda Zuleta ; Ewa Yu ; Alivia Mathur ; Kristine Morrow I. ; Marcos Nino ; Mendy Anthony ; Leo Griffin ; Juan Kitchen ; [facility]
--- NOTE | 2021-07-20 19:56 | Electrocardiogram Report ---
Test Reason : Blood Pressure : / mmHG Vent. Rate : 060 BPM Atrial Rate : 060 BPM P-R Int : 154 ms QRS Dur : 090 ms QT Int : 434 ms P-R-T Axes : -03 024 049 degrees QTc Int : 434 ms Atrial-paced rhythm Nonspecific T wave abnormality Abnormal ECG When compared with ECG of 18-JUL-2021 10:37, Electronic atrial pacemaker has replaced Sinus rhythm Confirmed by Rian Medina ([id number]) on 07/20/2021 7:55:53 PM Referred By: REFERRED SELF Confirmed By:Rian Medina
== END 2021-07-19 13:00 | disposition home or self-care (01) ==
LOC: EDINP 10:31 → ED 10:31 → EDINP 16:24

== ENCOUNTER 2023-02-15 14:41 | Observation (INO) ==
[2023-02-15] MEDS ORDERED: MoRPHine SULFATE 4 MG/ML 1 ML CARP\\VIAL IV STA (14:56)
[2023-02-15] MEDS ORDERED: ONDANSETRON INJ 2 MG/ML 2 ML VIAL IV STA (14:56)
--- NOTE | 2023-02-15 15:01 | Emergency Department Note ---
Impression & Plan Abdominal pain, epigastric, Acute GI bleeding ED Provider Note NAME: KD HANSON AGE: 53 SEX: M : 1970 ARRIVES VIA: Walk-In INFORMANT: Patient, ED PROVIDER(S): Sathish Lawson DO CHIEF COMPLAINT: Epigastric pain HPI: The patient is a 53-year-old male who has a history of paroxysmal atrial fibrillation who takes anticoagulation who presented to the emergency department for an evaluation of epigastric pain. The patient was seen in our facility for similar complaints. He was found to have signs of GI bleeding with heme positive stool. The patient states he was stable and able to be sent home at that time. He is scheduling follow-up appointment through the DC but before his symptoms could be reevaluated he started having worsening symptoms including epigastric pain chest pain and back pain. He has had no vomiting but does n otice nausea. He still notes dark stool. He denies having any lower extremity swelling or pain. The patient has a history of peptic ulcer disease in the past. ROS: See above HPI for pertinent positives & negatives. A total of 10 systems reviewed and were otherwise negative. PAST MEDICAL HISTORY: See Below PAST SURGICAL HISTORY: See Below FAMILY HISTORY: See Below SOCIAL HISTORY: See Below HOME MEDICATIONS: See Below ALLERGIES: See Below VITALS: See Below PHYSICAL EXAMINATION: GENERAL: Patient is awake alert in no acute distress patient is resting comfortably and showing no signs of anxiety EYES: The conjunctivae are clear. The pupils are round and reactive. EARS, NOSE, MOUTH AND THROAT: The nose is without any evidence of any deformity. NECK: The neck is nontender and supple. RESPIRATORY: Normal respiratory effort is noted there is no evidence of wheezing rhonchi or rales CARDIOVASCULAR: Regular rate and rhythm noted there no murmurs rubs or gallops normal S1 normal S2. GASTROINTESTINAL: The abdomen is soft and mildly distended. There is epigastric tenderness to palpation which is moderate. MUSCULOSKELETAL/EXTREMITIES: There is no evidence of gross deformity full range of motion is noted in the hips and shoulders. SKIN: There is no obvious evidence of any rash. There are no petechiae, pallor or cyanosis noted. NEUROLOGIC: Patient is awake alert and oriented x3. MEDICAL DECISION MAKING: The patient is a 53-year-old male who presented to the emergency department for an evaluation of upper abdominal pain. The patient started having epigastric abdominal pain over the last few days. He was seen in our facility for similar complaints and was found to have heme positive stool. The patient returns today because of ongoing and worsening pain. He was treated with IV pain medication in the emergency department. He was somewhat improved but continues to have rectal bleeding. Hemoglobin was stable. The patient continued to have significant pain. For this reason I [facility] this [facility] have agreed to evaluate the patient in the emergency department for further management and disposition. He does have a mass on his left kidney. I am unsure if this is causing some of his discomfort. Triage Nursing notes reviewed. Prior medical records reviewed Vital Signs: reviewed and remarkable for no significant abnormalities Differential diagnosis: Etiologies such as appendicitis, diverticulitis, obstruction, inflammatory bowel disease, renal colic, PUD, biliary pathology, pancreatitis, mesenteric ischemia, aortic pathology, infections, genitourinary, UTI, perforated viscus, as well as others were entertained. ER treatment provided: See below Diagnostics interpreted by me: ECG: EKG was obtained in the emergency department. My interpretation is normal sinus rhythm at 81 bpm. There is no ectopy. Nonspecific ST abnormalities were noted. Early transition was noted. This was compared to a tracing from February 13, 2023. No changes were noted Cardiac Monitoring: An order was placed for continuous cardiac monitoring. The monitor shows a rate of 63 bpm with sinus rhythm. Laboratory studies: As stated above and show below. Imaging studies: See below. Radiographic imaging was reviewed by myself Consultation(s): I discussed this case with Jeanine who [facility]. Past Med/Surg History Medical History (Updated 02/15/23 @ 21:25 by Sathish Lawson DO) Atrial fibrillation Cardiomyopathy due to chemotherapy Chronic pain syndrome Depression Grand mal seizure disorder History of rectal bleeding recent adm to [facility], found to have hemorrhoids, hgb stable at 15 HLD (hyperlipidemia) HTN (hypertension) IBS (irritable bowel syndrome) Kidney lesion Malignant thymoma Pericardial effusion with cardiac tamponade PTSD (post-traumatic stress disorder) Pulmonary embolism Raynaud's disease Syncopal episodes Tachy-maryan syndrome Surgical History H/O abdominal surgery History of back surgery S/P placement of cardiac pacemaker S/P thoracotomy Status post creation of pericardial window Family History Other No significant family history Social History Smoking Status: Never smoker Second Hand Exposure: No; Do You Dip or Chew Tobacco: No; Hx Alcohol Use: Yes Alcohol type: beer Hx Substance Use: No Preferred Language: Gabonese Communication Ability: Effective Visual Manager Required: No Beliefs That Will Affect Care: None Current Living Situation: Spouse Current Living Situation Comment: adult child and two dogs Feels Safe at Home: Yes Assistive Devices: CPAP Allergies Allergies Allergy/AdvReac Type Severity Reaction Status Date / Time vaccine adjuvant system, Allergy Severe Numbness Unverified 02/15/23 15:58 AS01B liposomal in limbs [From Shingrix (PF)] varicella-zoster virus Allergy Severe Numbness Unverified 02/15/23 15:58 glycoprotein E, recombinant in limbs [From Shingrix (PF)] ciprofloxacin [From Cipro] Allergy Intermediate Rash Verified 02/15/23 15:58 duloxetine [From Cymbalta] Allergy Intermediate unable to Verified 02/15/23 15:58 void Home Meds Home Medications Medication Instructions Recorded Confirmed pravastatin 40 mg tablet 40 mg PO HS 04/04/18 02/15/23 baclofen 10 mg tablet 10 mg PO HS PRN Muscle Spasm 01/27/20 02/15/23 cyanocobalamin (vitamin B-12) 500 1,000 mcg PO QAM 01/27/20 02/15/23 mcg tablet (Vitamin B-12) hydroxyzine HCl 25 mg tablet 25 mg PO Q6H PRN Anxiety 01/27/20 02/15/23 apixaban 5 mg tablet (Eliquis) 5 mg PO BID 07/18/21 02/15/23 levetiracetam 500 mg tablet 1,000 mg PO BID 07/18/21 02/15/23 metoprolol succinate 50 mg 25 mg PO QAM 07/18/21 02/15/23 tablet,extended release 24 hr hyoscyamine sulfate 0.125 mg tablet 0.125 mg PO .BID-QID PRN Abdominal 02/13/23 02/15/23 Discomfort melatonin 3 mg tablet 3 mg PO HS PRN Insomnia 02/15/23 02/15/23 Previous Rx's Medication Instructions Recorded pantoprazole 40 mg tablet,delayed 40 mg PO BID 30 days #60 tabs 02/13/23 release Results & Data (ED) Vital Signs Vital Signs - 24 hr 02/15/23 14:45 02/15/23 15:05 02/15/23 15:16 Temperature 36.2 C L Temperature Source Oral Pulse Rate 89 77 Pulse Rate [Bilateral] 88 Pulse Rhythm Regular Pulse Strength Normal Respiratory Rate 18 20 18 Respiratory Effort / Characteristics Non-Labored Spontaneous Respiratory Depth Normal Respiratory Pattern Regular Blood Pressure 134/79 Blood Pressure [Right Arm] 124/80 Blood Pressure Mean 97 Blood Pressure Mean [Right Arm] 94 Blood Pressure Position Sitting Pulse Oximetry 95 96 96 Oxygen Delivery Method Room Air Room Air Room Air Sepsis Recent Fever Within 48 Hours No Sepsis New/Unexplained Change in Mental Status No Sepsis Action Taken by Nursing No Action Required 02/15/23 15:07 02/15/23 16:00 02/15/23 17:38 Temperature Temperature Source Pulse Rate 86 Pulse Rate [Bilateral] 74 74 Pulse Rhythm Pulse Strength Respiratory Rate 20 18 Respiratory Effort / Characteristics Respiratory Depth Respiratory Pattern Blood Pressure Blood Pressure [Right Arm] 122/92 120/90 Blood Pressure Mean Blood Pressure Mean [Right Arm] 102 100 Blood Pressure Position Pulse Oximetry 97 98 Oxygen Delivery Method Room Air Sepsis Recent Fever Within 48 Hours Sepsis New/Unexplained Change in Mental Status Sepsis Action Taken by [facility] Medications Current Medication List: was personally reviewed by me Laboratory Data Attestation: I reviewed the patient's lab results. 02/15/23 15:07 02/15/23 15:07 Lab Results 02/15/23 02/15/23 02/15/23 Range/Units 15:07 15:07 15:07 WBC 8.42 (4.8-10.8) K/ul RBC 5.56 (4.70-6.10) M/uL Hgb 17.9 (14.0-18.0) g/dl Hct 50.2 (42.0-52.0) % MCV 90.3 (80.0-100.0) fL MCH 32.2 (25.0-34.0) pg MCHC 35.7 (32.0-36.0) g/dL RDW Std Deviation 42.8 (36.4-46.3) fL RDW Coeff of Lucila 12.9 (11.5-14.5) % Plt Count 201 (130-400) K/uL MPV 9.4 (9.4-12.4) fL Immature Gran % (Auto) 0.4 % Neut % (Auto) 73.2 % Lymph % (Auto) 17.6 % [place] % (Auto) 6.4 % Eos % (Auto) 2.0 % Baso % (Auto) 0.4 % Neut # (Auto) 6.17 (1.40-6.50) K/uL Lymph # (Auto) 1.48 (1.2-3.4) K/uL [place] # (Auto) 0.54 (0.11-0.59) K/uL Eos # (Auto) 0.17 (0-0.50) K/uL Baso # (Auto) 0.03 (0-0.2) K/uL Immature Gran # (Auto) 0.03 (0.01-0.20) K/uL PT 10.9 (9.0-12.0) Seconds INR 1.0 (0.9-1.1) APTT 26.4 (21.0-31.0) Seconds PTT Ratio 0.9 Sodium (136-145) mmol/L Potassium (3.5-5.1) mmol/L Chloride (98-107) mmol/L Carbon Dioxide (21-32) mmol/L Anion Gap (3-11) BUN (6-23) mg/dl Creatinine (0.6-1.4) mg/dl Est Cr Clr Drug Dosing ml/min Est GFR ( Amer) ml/min Est GFR (Non-Af Amer) ml/min BUN/Creatinine Ratio (10-20) Glucose (70-99(Fasting)) mg/dl Calcium (8.6-10.3) mg/dl Total Bilirubin (0.2-1.0) mg/dl AST (13-39) U/L ALT (7-52) U/L Alkaline Phosphatase (34-104) U/L Troponin I High Sens (0-20) pg/ml Total Protein (6.0-8.3) gm/dl Albumin (3.4-5.0) gm/dl Globulin (2.5-4.0) gm/dl Albumin/Globulin Ratio (0.9-2) Lipase (11-82) U/L Urine Color Urine Appearance (Clear) Urine pH (4.5-7.5) Ur Specific [place] (1.000-1.030) Urine Protein (Negative) Urine Glucose (UA) (Negative) Urine Ketones (Negative) Urine Blood (Negative) Urine Nitrite (Negative) Urine Bilirubin (Negative) Urine Urobilinogen (Negative) Ur Leukocyte Esterase (Negative) Blood Type A Negative Antibody Screen NEGATIVE 02/15/23 02/15/23 Range/Units 15:07 17:38 WBC (4.8-10.8) K/ul RBC (4.70-6.10) M/uL Hgb (14.0-18.0) g/dl Hct (42.0-52.0) % MCV (80.0-100.0) fL MCH (25.0-34.0) pg MCHC (32.0-36.0) g/dL RDW Std Deviation (36.4-46.3) fL RDW Coeff of Lucila (11.5-14.5) % Plt Count (130-400) K/uL MPV (9.4-12.4) fL Immature Gran % (Auto) % Neut % (Auto) % Lymph % (Auto) % [place] % (Auto) % Eos % (Auto) % Baso % (Auto) % Neut # (Auto) (1.40-6.50) K/uL Lymph # (Auto) (1.2-3.4) K/uL [place] # (Auto) (0.11-0.59) K/uL Eos # (Auto) (0-0.50) K/uL Baso # (Auto) (0-0.2) K/uL Immature Gran # (Auto) (0.01-0.20) K/uL PT (9.0-12.0) Seconds INR (0.9-1.1) APTT (21.0-31.0) Seconds PTT Ratio Sodium 139 (136-145) mmol/L Potassium 4.0 (3.5-5.1) mmol/L Chloride 106 (98-107) mmol/L Carbon Dioxide 27 (21-32) mmol/L Anion Gap 6 (3-11) BUN 9 (6-23) mg/dl Creatinine 0.88 (0.6-1.4) mg/dl Est Cr Clr Drug Dosing 93.6 ml/min Est GFR ( Amer) 113.7 ml/min Est GFR (Non-Af Amer) 98.1 ml/min BUN/Creatinine Ratio 10.2 (10-20) Glucose 144 H (70-99(Fasting)) mg/dl Calcium 9.7 (8.6-10.3) mg/dl Total Bilirubin 1.3 H (0.2-1.0) mg/dl AST 15 (13-39) U/L ALT 19 (7-52) U/L Alkaline Phosphatase 50 (34-104) U/L Troponin I High Sens 4.3 (0-20) pg/ml Total Protein 7.2 (6.0-8.3) gm/dl Albumin 4.4 (3.4-5.0) gm/dl Globulin 2.8 (2.5-4.0) gm/dl Albumin/Globulin Ratio 1.6 (0.9-2) Lipase 34 (11-82) U/L Urine Color Yellow Urine Appearance Clear (Clear) Urine pH 5.5 (4.5-7.5) Ur Specific [place] 1.018 (1.000-1.030) Urine Protein Negative (Negative) Urine Glucose (UA) Negative (Negative) Urine Ketones Negative (Negative) Urine Blood Negative (Negative) Urine Nitrite Negative (Negative) Urine Bilirubin Negative (Negative) Urine Urobilinogen Negative (Negative) Ur Leukocyte Esterase Negative (Negative) Blood Type Antibody Screen Administered Medications Apixaban (Apixaban 5 Mg Tablet) 5 mg PO BID [facility] Stop: 03/17/23 20:59 Last Admin: 02/15/23 21:15 Dose: 5 mg Documented By: KIRSTEN Hydroxyzine HCl (Hydroxyzine Hcl 25 Mg Tab) 25 mg PO Q6H PRN PRN Reason: Anxiety Stop: 03/17/23 19:43 Last Admin: 02/15/23 21:14 Dose: 25 mg Documented By: KIRSTEN Pantoprazole Sodium 40 mg/ (Syringe) 10 mls @ 5 mls/min IV BID ADRIÁN Stop: 03/17/23 20:59 Last Admin: 02/15/23 21:14 Dose: 5 mls/min Documented By: KIRSTEN Levetiracetam (Levetiracetam 500 Mg Tab) 1,000 mg PO BID ADRIÁN Stop: 03/17/23 20:59 Last Admin: 02/15/23 21:15 Dose: 1,000 mg Documented By: KIRSTEN Morphine Sulfate (Morphine Sulfate 4 Mg/Ml 1 Ml Carp\Vial) 3 mg IV Q4H PRN PRN Reason: Severe Pain (Scale 7, 8, 9,10) Stop: 02/16/23 19:43 Last Admin: 02/15/23 21:14 Dose: 3 mg Documented By: KIRSTEN Oxycodone HCl (Oxycodone Hcl Ir 5 Mg Tab (Immediate Release)) 5 mg PO Q6H PRN PRN Reason: Moderate Pain (Scale 4, 5, 6) Stop: 03/01/23 19:43 Last Admin: 02/15/23 20:02 Dose: 5 mg Documented By: KIRSTEN Pravastatin Sodium (Pravastatin Sod 40 Mg Tab) 40 mg PO HS ADRIÁN Stop: 03/17/23 20:59 Last Admin: 02/15/23 21:15 Dose: 40 mg Documented By: KIRSTEN Discontinued Medications Al Hydrox/Mg Hydrox/Simethicone (Aluminum/Magnesium Susp 30 Ml Udc) 30 ml PO NOW STA Stop: 02/15/23 16:52 Last Admin: 02/15/23 17:32 Dose: 30 ml Documented By: ANISH Morphine Sulfate (Morphine Sulfate 4 Mg/Ml 1 Ml Carp\Vial) 4 mg IV NOW STA Stop: 02/15/23 14:57 Last Admin: 02/15/23 15:07 Dose: 4 mg Documented By: JENNIFER Morphine Sulfate (Morphine Sulfate 4 Mg/Ml 1 Ml Carp\Vial) 4 mg IV Q30M PRN PRN Reason: Pain Stop: 03/01/23 14:55 Last Admin: 02/15/23 19:08 Dose: 4 mg Documented By: Admin: 02/15/23 17:32 Dose: 4 mg Documented By: Admin: 02/15/23 16:44 Dose: 4 mg Documented By: JENNIFER Ondansetron HCl (Ondansetron Inj 2 Mg/Ml 2 Ml Vial) 4 mg IV NOW STA Stop: 02/15/23 14:57 Last Admin: 02/15/23 15:07 Dose: 4 mg Documented By: JENNIFER Sucralfate (Sucralfate 1 Gm Tab) 1 gm PO NOW STA Stop: 02/15/23 16:52 Last Admin: 02/15/23 17:32 Dose: 1 gm Documented By: ANISH Imaging Data Attestation: I personally reviewed and interpreted this imaging study as follows: My Impression: 1 view chest x-ray was obtained in the emergency department. My interpretation is no free air, elevation of the left hemidiaphragm was noted, final report below. Radiologist's Impression: Chest X-Ray 02/15/23 14:50 XR chest 1V portable HISTORY: Atypical chest pain. COMPARISON: Chest 02/13/2023. FINDINGS: No pneumothorax. No pleural effusions. There is a left-sided dual- chamber pacemaker, poststernotomy changes, and spinal stimulator leads again noted. Chronic elevation of the left hemidiaphragm. There is chronic deformity of the left chest wall and suture material again noted within the left hemithorax. The right lung is clear. No evidence for pulmonary edema. No new focal lung consolidations to suggest a pneumonia. IMPRESSION: No significant change compared to the prior study. No acute process. ACT 112: Negative or not required by law. Electronically signed by: Brett Escalera M.D. 02/15/2023 3:04 PM Discharge Plan Visit Data Chief Complaint: Abdominal Pain Stated Complaint: BLOOD IN STOOL, ABDOMINAL PAIN, BACK AND CHEST FREDI ED Provider: Sathish Lawson Discharge Problem: Abdominal pain, epigastric, Acute GI bleeding Patient Disposition: Admitted As Inpatient Discharge Instructions Interventions: ED Discharge Assessment Last Done: 02/15/23 19:26
--- NOTE | 2023-02-15 15:06 | XRay Report ---
XR chest 1V portable HISTORY: Atypical chest pain. COMPARISON: Chest 02/13/2023. FINDINGS: No pneumothorax. No pleural effusions. There is a left-sided dual-chamber pacemaker, postst ernotomy changes, and spinal stimulator leads again noted. Chronic elevation of the left hemidiaphrag m. There is chronic deformity of the left chest wall and suture material again noted within the left hemithorax. The right lung is clear. No evidence for pulmonary edema. No new focal lung consolidation s to suggest a pneumonia. IMPRESSION: No significant change compared to the prior study. No acute process. ACT 112: Negative or not required by law. Electronically signed by: Brett Escalera M.D. 02/15/2023 3:04 PM
[2023-02-15 15:19] LABS: Basophils # (auto) 0.03 K/uL (0-0.2); Basophils % (auto) 0.4 %; Eosinophils # (auto) 0.17 K/uL (0-0.50); Hematocrit (blood only) 50.2 % (42.0-52.0); Hemoglobin 17.9 g/dl (14.0-18.0); Immature Granulocytes # (auto) 0.03 K/uL (0.01-0.20); Immature Granulocytes % (auto) 0.4 %; Lymphocytes # (auto) 1.48 K/uL (1.2-3.4); Lymphocytes % (auto) 17.6 %; Mean Corpuscular Hemoglobin 32.2 pg (25.0-34.0); Mean Corpuscular Hgb Conc 35.7 g/dL (32.0-36.0); Mean Corpuscular Volume 90.3 fL (80.0-100.0); Mean Platelet Volume 9.4 fL (9.4-12.4); Monocytes # (auto) 0.54 K/uL (0.11-0.59); Monocytes % (auto) 6.4 %; Neutrophils # (auto) 6.17 K/uL (1.40-6.50); Neutrophils % (auto) 73.2 %; Platelet Count 201 K/uL (130-400); RDW Coefficient of Variation 12.9 % (11.5-14.5); RDW Standard Deviation 42.8 fL (36.4-46.3); Red Blood Count 5.56 M/uL (4.70-6.10); White Blood Count 8.42 K/ul (4.8-10.8)
[2023-02-15 15:36] LABS: Albumin Globulin Ratio 1.6 (0.9-2); Albumin Level 4.4 gm/dl (3.4-5.0); BUN Creatinine Ratio 10.2 (10-20); Bilirubin,Total 1.3 mg/dl (0.2-1.0); Calcium 9.7 mg/dl (8.6-10.3); Creatinine Clr Calc Pharmacy 93.6 ml/min; Est GFR (African American) 113.7 ml/min; Est GFR (Non-African American) 98.1 ml/min; Globulin 2.8 gm/dl (2.5-4.0); Total Protein 7.2 gm/dl (6.0-8.3)
[2023-02-15 15:42] LABS: Troponin I High Sensitivity 4.3 pg/ml (0-20)
[2023-02-15 15:52] LABS: Partial Thromboplastin Ratio 0.9; Partial Thromboplastin Time 26.4 Seconds (21.0-31.0); Prothrombin Time 10.9 Seconds (9.0-12.0)
[2023-02-15] MEDS: MoRPHine SULFATE 4 MG/ML 1 ML CARP\\VIAL IV PRN ×4 (16:44→21:14)
[2023-02-15] MEDS ORDERED: ALUMINUM/MAGNESIUM SUSP 30 ML UDC PO STA (16:51)
[2023-02-15] MEDS ORDERED: SUCRALFATE 1 GM TAB PO STA (16:51)
--- NOTE | 2023-02-15 17:33 | History & Physical Report ---
Date of Service February 15, 2023 Assessment & Plan (1) Complaint of melena: (2) Abdominal pain: Plan: Patient is a 53-year-old male with PMH thymoma, history of left lobectomy, PTSD, depression, history of cardiomyopathy secondary to chemo, atrial fibrillation chronically anticoagulated on Eliquis, dyslipidemia presented to ER with complaint of abdominal pain, melena. Vital stable, no leukocytosis H/H: 17.9/50. Hgb: 17.8 on 02/13/2023, lipase WNL CT abdomen pelvis from 2 days ago 02/13/2023 noted left kidney lesion, otherwise no bowel wall thickening or obstruction, normal appendix DDx: Upper GI bleed, gastritis, PUD Vitals and hemoglobin have been stable over the last 48 hours Monitor for further melena Hemoccult stool Protonix IV twice daily Clear liquid diet for now NPO midnight GI consult CBC, CMP in am (3) Flank pain: (4) Kidney lesion: Plan: Ongoing left flank pain x 1 year DDx ?secondary to kidney lesion vs musculoskeletal vs other 02/13/2023: CT abdomen and pelvis: 1. No bowel wall thickening or obstruction. 2. Normal appendix. 3. Left-sided nephrolithiasis. No ureteral stones. No hydronephrosis. 4. There is a 9 mm enhancing exophytic lesion within the upper pole of the left kidney. This was not well evaluated on the prior MRI due to the artifact at this location. This has slightly increased in size compared to the prior CT examination and is therefore highly suspicious for renal cell carcinoma. Nonemergent urology consultation recommended. CT abdomen pelvis 08/26/2021: 8 mm lesion left kidney Abdomen MRI 10/11/2021: 7 mm lesion left kidney UA unremarkable MRI abdomen if pacer is compatible Urology consult (5) Atrial fibrillation: Plan: Chronically anticoagulated on Eliquis Current sinus rhythm Will continue Eliquis for now as hemodynamically stable, no change in hemoglobin over the past 2 days Continue metoprolol succinate (6) HLD (hyperlipidemia): Plan: Continue pravastatin (7) Depression: (8) PTSD (post-traumatic stress disorder): Plan: Continue hydroxyzine prn (9) Malignant thymoma: Plan: S/P surgical resection and chemotherapy Follows with [place] oncologist (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 See addendum I spent a total of 77 minutes reviewing notes, outpatient records, labs, medication, coordinating, documenting and providing care for this patient excluding time spent in the performance of separately billed services. History of Present Illness Chief Complaint: abdominal pain Primary Care Provider: Richi Falk MD Patient is a 53-year-old male with PMH thymoma, history of left lobectomy, PTSD, depression, history of cardiomyopathy secondary to chemo, atrial fibrillation chronically anticoagulated on Eliquis, dyslipidemia presented to ER with complaint of abdominal pain. Patient reports for the past year has been having left flank pain. Also reports epigastric pain that has been ongoing for a year. He states in past he thinks he was diagnosed with hiatal hernia. He does state for the past month he has been noting some indigestion, burning sensation to epigastric region with eating. Also states for the past month has had decreased appetite and intermittent nausea. He reports 5 days ago had 1 episode of vomiting and noted some red coloration to vomit. Also reports 5 days ago had black-colored stools for couple days. Today reports had bowel movement and stool looked brown however when he wiped noted black coloration on toilet paper. Denies any bright red blood per rectum. States for the past 5 days has been having diffuse cramping abdominal discomfort as well. Has chronic difficulty with initiating urine stream as well as decreased urine stream. Reports for approximately past year has had intermittent dysuria. Denies any noted hematuria. Patient with known left kidney lesion that was seen on abdominal imaging in 2021. He reports that he has forgotten about left kidney lesion and did not further follow-up. Seen at [facility] ER on 02/13/2023 for abdominal pain, melena. He had heme positive stools, Hgb: 17.8. CT abdomen pelvis was without bowel wall thickening or obstruction, no hydronephrosis, there was 9 mm lesion left kidney which has been seen on prior CTs. He was started on Protonix twice daily. Reports history of colonoscopy in past, Reports history internal hemorrhoids. C/O Intermittent chills. Thinks lost weight over past year. Also re ports progressive fatigue and intermittent dizziness that has been ongoing for months. Denies fever, diarrhea, constipation, MATTHEW, syncope, vision changes, neck pain, CP, SOB, orthopnea, palpitations, cough, sore throat, choking, otalgia, rhinorrhea, paresthesias, extremity weakness, extremity edema, rashes. Allergies Allergy/AdvReac Type Severity Reaction Status Date / Time vaccine adjuvant system, Allergy Severe Numbness Unverified 02/15/23 15:58 AS01B liposomal in limbs [From Shingrix (PF)] varicella-zoster virus Allergy Severe Numbness Unverified 02/15/23 15:58 glycoprotein E, recombinant in limbs [From Shingrix (PF)] ciprofloxacin [From Cipro] Allergy Intermediate Rash Verified 02/15/23 15:58 duloxetine [From Cymbalta] Allergy Intermediate unable to Verified 02/15/23 15:58 void Home Medications Medication Instructions Recorded Confirmed Type pravastatin 40 mg tablet 40 mg PO HS 04/04/18 02/15/23 History baclofen 10 mg tablet 10 mg PO HS PRN Muscle Spasm 01/27/20 02/15/23 History cyanocobalamin (vitamin B-12) 500 1,000 mcg PO QAM 01/27/20 02/15/23 History mcg tablet (Vitamin B-12) hydroxyzine HCl 25 mg tablet 25 mg PO Q6H PRN Anxiety 01/27/20 02/15/23 History apixaban 5 mg tablet (Eliquis) 5 mg PO BID 07/18/21 02/15/23 History levetiracetam 500 mg tablet 1,000 mg PO BID 07/18/21 02/15/23 History metoprolol succinate 50 mg 25 mg PO QAM 07/18/21 02/15/23 History tablet,extended release 24 hr hyoscyamine sulfate 0.125 mg tablet 0.125 mg PO .BID-QID PRN Abdominal 02/13/23 02/15/23 History Discomfort pantoprazole 40 mg tablet,delayed 40 mg PO BID 30 days #60 tabs 02/13/23 02/15/23 Rx release melatonin 3 mg tablet 3 mg PO HS PRN Insomnia 02/15/23 02/15/23 History Past Med/Surg History Medical History (Updated 02/15/23 @ 21:25 by Sathish Lawson DO) Atrial fibrillation Cardiomyopathy due to chemotherapy Chronic pain syndrome Depression Grand mal seizure disorder History of rectal bleeding recent adm to [facility], found to have hemorrhoids, hgb stable at 15 HLD (hyperlipidemia) HTN (hypertension) IBS (irritable bowel syndrome) Kidney lesion Malignant thymoma Pericardial effusion with cardiac tamponade PTSD (post-traumatic stress disorder) Pulmonary embolism Raynaud's disease Syncopal episodes Tachy-maryan syndrome Surgical History H/O abdominal surgery History of back surgery S/P placement of cardiac pacemaker S/P thoracotomy Status post creation of pericardial window Family History Other No significant family history Social History Smoking Status: Never smoker Second Hand Exposure: No; Do You Dip or Chew Tobacco: No; Tobacco Cessation Education Requested by Patient: No Hx Alcohol Use: No Hx Substance Use: No Preferred Language: Nepali Communication Ability: Effective Cement Finishing Supervisor Required: No Beliefs That Will Affect Care: None Current Living Situation: Spouse Current Living Situation Comment: adult child and two dogs Other Information That Helps Us Care for You: No Feels Safe at Home: Yes Safety Concerns: Feels Safe At This Time Assistive Devices: CPAP Review of Systems Review of Systems: All systems reviewed & are unremarkable except as noted in HPI & below Physical Exam 2 Physical Exam: General: mild distress secondary to reported left flank pain, WDWN Head: normocephalic, atraumatic Eyes: conjunctiva non-injected, anicteric ENT: normal inspection external ears, nose, mucous membranes moist Neck: supple, trachea midline Lungs: clear, no respiratory distress, no wheezing/rhonchi/rales CV: RRR, no murmur, no pretibial edema Abd: normal BS, soft, + diffuse tenderness to palpation RUQ, epigastric, LUQ, RLQ, LLQ without rebound. +L CVA tenderness to percussion Ext: no cyanosis, no calf tenderness Neuro: A&O x 3, no focal deficits noted, normal affect Skin: warm, dry Results & Data Results & Data Vital Signs (Past 12 Hours) Vital Signs Temp Pulse Pulse Resp BP BP Pulse Ox 02/15/23 16:00 74 20 122/92 97 02/15/23 15:07 86 02/15/23 15:16 77 18 96 02/15/23 15:05 88 20 124/80 96 02/15/23 14:45 36.2 C L 89 18 134/79 95 O2 Del Method 02/15/23 16:00 Room Air 02/15/23 15:07 02/15/23 15:16 Room Air 02/15/23 15:05 Room Air 02/15/23 14:45 Room Air Laboratory Results Short CBC 02/15/23 Range/Units 15:07 WBC 8.42 (4.8-10.8) K/ul Hgb 17.9 (14.0-18.0) g/dl Hct 50.2 (42.0-52.0) % Plt Count 201 (130-400) K/uL BMP 02/15/23 15:07 Sodium 139 Potassium 4.0 Chloride 106 Carbon Dioxide 27 BUN 9 Creatinine 0.88 Glucose 144 H Calcium 9.7 Liver Function 02/15/23 Range/Units 15:07 Total Bilirubin 1.3 H (0.2-1.0) mg/dl AST 15 (13-39) U/L ALT 19 (7-52) U/L Alkaline Phosphatase 50 (34-104) U/L Albumin 4.4 (3.4-5.0) gm/dl Urine 02/15/23 Range/Units 17:38 Urine Color Yellow Urine Appearance Clear (Clear) Urine pH 5.5 (4.5-7.5) Ur Specific [place] 1.018 (1.000-1.030) Urine Protein Negative (Negative) Urine Glucose (UA) Negative (Negative) Diagnostic Findings Chest X-Ray 02/15/23 14:50 XR chest 1V portable HISTORY: Atypical chest pain. COMPARISON: Chest 02/13/2023. FINDINGS: No pneumothorax. No pleural effusions. There is a left-sided dual- chamber pacemaker, poststernotomy changes, and spinal stimulator leads again noted. Chronic elevation of the left hemidiaphragm. There is chronic deformity of the left chest wall and suture material again noted within the left hemithorax. The right lung is clear. No evidence for pulmonary edema. No new focal lung consolidations to suggest a pneumonia. IMPRESSION: No significant change compared to the prior study. No acute process. ACT 112: Negative or not required by law. Electronically signed by: Brett Escalera M.D. 02/15/2023 3:04 PM ECG Rate (beats per minute): 81 Rhythm: sinus rhythm Supervising Physician Co-Signing Physician Notes Pt seen and examined by myself, Magalys Gould MD on the day of service. Care was coordinated with Maria Esther Elizabeth PA-C. Please refer to her note for additional information. 53yoM with complaints of tarry stools and dizziness. However H/H wnl. Notes chronic back and abdominal pain. Very tender to abdominal exam in all quadrants and epigastrium. CT notes progressing left kidney lesion, consider repeat MRI abdomen. Urology consult. Pain control. Otherwise as above. (2) Abdominal pain Abdominal location: generalized Qualified Code(s): R10.84 - Generalized abdominal pain
[2023-02-15 17:51] LABS: Appearance Urine Clear (Clear); Bilirubin Urine Negative (Negative); Blood Urine Negative (Negative); Color Urine Yellow; Glucose Urine UA Negative (Negative); Ketones Urine Negative (Negative); Leukocyte Esterase Urine Negative (Negative); Nitrite Urine Negative (Negative); Protein Urine Negative (Negative); Specific Gravity Urine 1.018 (1.000-1.030); Urobilinogen Urine Negative (Negative); pH Urine 5.5 (4.5-7.5)
[2023-02-15] MEDS ORDERED: POLYETHYLENE (MIRALAX) 17 GM PACK PO PRN (19:44)
[2023-02-15] MEDS ORDERED: ONDANSETRON INJ 2 MG/ML 2 ML VIAL IV PRN (19:44)
[2023-02-15] MEDS ORDERED: BACLOFEN 10 MG TAB PO PRN (19:44)
[2023-02-15] MEDS ORDERED: MELATONIN 3 MG TAB PO PRN (19:44)
[2023-02-15] MEDS ORDERED: ACETAMINOPHEN 325 MG TAB PO PRN (19:44)
[2023-02-15] MEDS: oxyCODONE HCL IR 5 MG TAB (IMMEDIATE RELEASE) PO PRN (20:02)
[2023-02-15] MEDS: PANTOprazole 40 MG in SYRINGE 0 ML IV SCH (21:14)
[2023-02-15] MEDS: hydrOXYzine HCl 25 MG TAB PO PRN (21:14)
[2023-02-15] MEDS: APIXABAN 5 MG TABLET PO SCH (21:15)
[2023-02-15] MEDS: levETIRAcetam 500 MG TAB PO SCH (21:15)
[2023-02-15] MEDS: PRAVASTATIN SOD 40 MG TAB PO SCH (21:15)
[2023-02-16] MEDS: MoRPHine SULFATE 4 MG/ML 1 ML CARP\\VIAL IV PRN ×3 (08:10→17:23)
[2023-02-16] MEDS: PANTOprazole 40 MG in SYRINGE 0 ML IV SCH ×2 (08:10→20:41)
[2023-02-16] MEDS: levETIRAcetam 500 MG TAB PO SCH ×2 (08:12→20:40)
[2023-02-16] MEDS: CYANOCOBALAMIN (B-12) 500 MCG TABLET PO SCH (08:12)
[2023-02-16] MEDS: APIXABAN 5 MG TABLET PO SCH ×2 (08:12→20:40)
[2023-02-16] MEDS: METOPROLOL SUCC 25MG EXT REL TAB PO SCH (08:12)
[2023-02-16 08:44] LABS: Hematocrit (blood only) 48.1 % (42.0-52.0); Mean Corpuscular Hemoglobin 31.6 pg (25.0-34.0); Mean Corpuscular Hgb Conc 35.3 g/dL (32.0-36.0); Mean Corpuscular Volume 89.4 fL (80.0-100.0); Mean Platelet Volume 9.8 fL (9.4-12.4); Platelet Count 152 K/uL (130-400); RDW Coefficient of Variation 12.9 % (11.5-14.5); RDW Standard Deviation 42.3 fL (36.4-46.3); Red Blood Count 5.38 M/uL (4.70-6.10); White Blood Count 5.67 K/ul (4.8-10.8)
[2023-02-16 08:50] LABS: Albumin Globulin Ratio 1.6 (0.9-2); Albumin Level 3.9 gm/dl (3.4-5.0); BUN Creatinine Ratio 14.3 (10-20); Bilirubin,Total 1.7 mg/dl (0.2-1.0); Est GFR (African American) 120.1 ml/min; Est GFR (Non-African American) 103.6 ml/min; Globulin 2.4 gm/dl (2.5-4.0); Potassium 3.8 mmol/L (3.5-5.1); Total Protein 6.3 gm/dl (6.0-8.3)
--- NOTE | 2023-02-16 10:03 | Urology Consultation ---
Date of Consultation February 16, 2023 Assessment & Plan (1) Kidney lesion: 53-year-old male admitted for abdominal pain and melena. Urology consulted for renal mass. Patient afebrile with stable vitals. CT imaging reviewed and notable for a 9 mm enhancing exophytic lesion of the left kidney, increased in size from previous CT, suspicious for renal cell carcinoma. Reviewed and discussed CT findings with patient. No acute intervention at this time. We discussed outpatient follow-up to discuss management options. He also reports bothersome LUTS at baseline. Recommend monitor voiding, can check a post void residual bladder scan and then bladder scan as needed. Recommend start Tamsulosin. Discussed with patient and he was agreeable. Use and side effects reviewed. Will arrange outpatient follow-up with our service. will sign off, please contact our service with any additional issues/concern s. History of Present Illness Reason for Consultation: Renal Mass Requesting Physician: Dr. Gould Attending Physician: Leo Griffin MD History of Present Illness This is a 53-year-old male with past medical history of malignant thymoma, cardiomyopathy due to chemotherapy, history of left lobectomy, atrial fibrillation on chronic anticoagulation with Eliquis, pulmonary embolism, seizure disorder, PTSD, hypertension, hyperlipidemia who presented to the emergency department on 02/15/2023 with complaint of abdominal pain and tarry stools. On arrival, he was afebrile and hemodynamically stable. Labs reviewed and showed WBC 8.42, hemoglobin 17.9, HCT 50.2, creatinine 0.88. Urinalysis was negative. Of note, he was previously seen at [facility] ER on 02/13/2023 for abdominal pain, melena. He had heme positive stools, Hgb: 17.8. CT abdomen pelvis on 02/13/23 was without bowel wall thickening or obstruction, no hydronephrosis, there was 9 mm enhancing exophytic lesion left kidney which has been seen on prior CTs. He was admitted for further evaluation of abdominal pain and melena. Urology consulted for renal mass. Chart reviewed. Afebrile, stable vitals. Lab work reviewedcreatinine 0.77, WBC 5.67, hemoglobin 7.0. UA 02/[address] A/P with IV contrast (02/13/23) IMPRESSION: 1. No bowel wall thickening or obstruction. 2. Normal appendix. 3. Left-sided nephrolithiasis. No ureteral stones. No hydronephrosis. 4. There is a 9 mm enhancing exophytic lesion within the upper pole of the left kidney. This was not well evaluated on the prior MRI due to the artifact at this location. This has slightly increased in size compared to the prior CT examination and is therefore highly suspicious for renal cell carcinoma. Non emergent urology consultation recommended. 5. Additional stable findings as described above. Abdomen MRI (10/11/21) noted a 7 mm exophytic lesion in the left kidney. It appears to enhance approximately to the extent of the radial rest of the renal parenchyma, allowing for volume averaging. Patient seen and examined at bedside this morning. He is awake, alert and resting in bed. Continues to have abdominal discomfort. Reports dark stools prior to arrival, but has not had a BM since arrival. Occasional nausea. Voiding spontaneously. Endorses bothersome LUTS at baseline including nocturia, frequency, urgency, hesitancy, as well as weak/intermittent stream. Occasional dysuria, no hematuria. No fever or chills. He thinks he has seen a urologist in the past but does not recall details. Denies prior prostate cancer screening. Left renal lesion was noted on CT in Aug 2021, he had f/u imaging through his PCP with GERARDO and MRI. No known family hx of malignancy. Allergies Allergy/AdvReac Type Severity Reaction Status Date / Time vaccine adjuvant system, Allergy Severe Numbness Unverified 02/15/23 15:58 AS01B liposomal in limbs [From Shingrix (PF)] varicella-zoster virus Allergy Severe Numbness Unverified 02/15/23 15:58 glycoprotein E, recombinant in limbs [From Shingrix (PF)] ciprofloxacin [From Cipro] Allergy Intermediate Rash Verified 02/15/23 15:58 duloxetine [From Cymbalta] Allergy Intermediate unable to Verified 02/15/23 15:58 void Home Medications Medication Instructions Recorded Confirmed Type pravastatin 40 mg tablet 40 mg PO HS 04/04/18 02/15/23 History baclofen 10 mg tablet 10 mg PO HS PRN Muscle Spasm 01/27/20 02/15/23 History cyanocobalamin (vitamin B-12) 500 1,000 mcg PO QAM 01/27/20 02/15/23 History mcg tablet (Vitamin B-12) hydroxyzine HCl 25 mg tablet 25 mg PO Q6H PRN Anxiety 01/27/20 02/15/23 History apixaban 5 mg tablet (Eliquis) 5 mg PO BID 07/18/21 02/15/23 History levetiracetam 500 mg tablet 1,000 mg PO BID 07/18/21 02/15/23 History metoprolol succinate 50 mg 25 mg PO QAM 07/18/21 02/15/23 History tablet,extended release 24 hr hyoscyamine sulfate 0.125 mg tablet 0.125 mg PO .BID-QID PRN Abdominal 02/13/23 02/15/23 History Discomfort pantoprazole 40 mg tablet,delayed 40 mg PO BID 30 days #60 tabs 02/13/23 02/15/23 Rx release melatonin 3 mg tablet 3 mg PO HS PRN Insomnia 02/15/23 02/15/23 History Patient History Medical History Atrial fibrillation Cardiomyopathy due to chemotherapy Chronic pain syndrome Depression Grand mal seizure disorder History of rectal bleeding recent adm to [facility], found to have hemorrhoids, hgb stable at 15 HLD (hyperlipidemia) HTN (hypertension) IBS (irritable bowel syndrome) Kidney lesion Malignant thymoma Pericardial effusion with cardiac tamponade PTSD (post-traumatic stress disorder) Pulmonary embolism Raynaud's disease Syncopal episodes Tachy-maryan syndrome Surgical History H/O abdominal surgery History of back surgery S/P placement of cardiac pacemaker S/P thoracotomy Status post creation of pericardial window Family History Other No significant family history Social History Smoking Status: Never smoker Second Hand Exposure: No; Do You Dip or Chew Tobacco: No; Tobacco Cessation Education Requested by Patient: No Hx Alcohol Use: No Hx Substance Use: No Preferred Language: Kyrgyz Communication Ability: Effective Facility Maintenance Technician Required: No Beliefs That Will Affect Care: None Current Living Situation: Spouse Current Living Situation Comment: adult child and two dogs Other Information That Helps Us Care for You: No Feels Safe at Home: Yes Safety Concerns: Feels Safe At This Time Assistive Devices: CPAP Review of Systems Review of Systems: All systems reviewed & are unremarkable except as noted in HPI & below Physical Exam Physical Exam: General: well-appearing, no acute distress HEENT: Normocephalic, mucous membranes moist Pulmonary: Nonlabored respirations Abdomen: generalized tenderness Extremities: Moves all 4 spontaneously Neuro: No gross deficits Psych: alert and oriented, normal mood Skin: Warm, dry, no rashes noted Results & Data Vital Signs (Past 12 Hours) Vital Signs Temp Pulse Pulse Pulse Resp BP Pulse Ox 02/16/23 07:56 36.6 C 66 16 116/74 97 02/16/23 05:56 60 02/16/23 02:20 61 02/15/23 23:47 36.5 C 62 18 110/70 98 O2 Del Method 02/16/23 07:56 Room Air 02/16/23 05:56 02/16/23 02:20 02/15/23 23:47 Room Air PG Care Time/CCT Total # of Minutes Spent Total Time Spent with Patient: Total time spent is greater than 50% in coordination of care (as documented) at patient's floor/unit and/or counseling patient: Coding Level of Care Code 51437 IN/OBS CONSULT LVL 4,60M Diagnoses Kidney lesion N28.9
[2023-02-16] MEDS: oxyCODONE HCL IR 5 MG TAB (IMMEDIATE RELEASE) PO PRN ×2 (10:10→20:40)
--- NOTE | 2023-02-16 11:57 | Gastrointestinal Consultation ---
Date of Consultation February 16, 2023 Assessment & Plan (1) Abdominal pain, epigastric: (2) Complaint of melena: Plan Diagnostic EGD on Eliquis. (likely) Eventual OP colonoscopy off Eliquis. Further recommendations to follow EGD. Supervising Physician Co-Signing Physician Notes Epigastric pain and report of melena. EGD today to r/o PUD History of Present Illness Reason for Consultation: Melena Requesting Physician: Dr. Yañez Attending Physician: Leo Griffin MD History of Present Illness Mr. Sean Ly is a 53 yr old male pt of Dr. Gordon w a hx of thymoma (a rare cancer secondary thought related to serving in [facility]), S/P left lobectomy, PTSD, depression, history of cardiomyopathy secondary to chemo, A-fib and hx of DVT on Eliquis, who presented to ER with complaint of abdominal pain, melena which he tells me occurred daily x 3 days, last M, T, W. He passed a formed brown BM w black blood on the toilet paper on Thursday and none since then. Hb/BUN are normal. A CTAP w IV during an ED visit here for pain on on 02/13 (not admitted) w a kidney lesion and urology is consulted but no obvious cause for his pain. He tells me that he has IBS, that typically he has diffuse lower abd pain that is worse prior to a BM and better after. About a week ago, he began with a different type of abdominal pain, mostly in the epigastric area and this pain is constant and is not related to defecation. He has not had N/V. WBC, LFTs and lipase here are normal. He continues in considerable pain but is able to ambulate in the room. He has been kept NPO. He is awaiting MRI of the kidneys planned for this afternoon. Most recent EGD and colonoscopy [place] [address] Barrett for hematochezia. EGD was normal colonoscopy with internal hemorrhoids only. Allergies Allergy/AdvReac Type Severity Reaction Status Date / Time vaccine adjuvant system, Allergy Severe Numbness Verified 02/16/23 14:23 AS01B liposomal in limbs [From Shingrix (PF)] varicella-zoster virus Allergy Severe Numbness Verified 02/16/23 14:23 glycoprotein E, recombinant in limbs [From Shingrix (PF)] ciprofloxacin [From Cipro] Allergy Intermediate Rash Verified 02/16/23 14:23 duloxetine [From Cymbalta] Allergy Intermediate unable to Verified 02/16/23 14:23 void venlafaxine Allergy Intermediate Dizziness Verified 02/16/23 14:24 Home Medications Medication Instructions Recorded Confirmed Type pravastatin 40 mg tablet 40 mg PO HS 04/04/18 02/15/23 History baclofen 10 mg tablet 10 mg PO HS PRN Muscle Spasm 01/27/20 02/15/23 History cyanocobalamin (vitamin B-12) 500 1,000 mcg PO QAM 01/27/20 02/15/23 History mcg tablet (Vitamin B-12) hydroxyzine HCl 25 mg tablet 25 mg PO Q6H PRN Anxiety 01/27/20 02/15/23 History apixaban 5 mg tablet (Eliquis) 5 mg PO BID 07/18/21 02/15/23 History levetiracetam 500 mg tablet 1,000 mg PO BID 07/18/21 02/15/23 History metoprolol succinate 50 mg 25 mg PO QAM 07/18/21 02/15/23 History tablet,extended release 24 hr hyoscyamine sulfate 0.125 mg tablet 0.125 mg PO .BID-QID PRN Abdominal 02/13/23 02/15/23 History Discomfort pantoprazole 40 mg tablet,delayed 40 mg PO BID 30 days #60 tabs 02/13/23 02/15/23 Rx release melatonin 3 mg tablet 3 mg PO HS PRN Insomnia 02/15/23 02/15/23 History Patient History Medical History Atrial fibrillation Cardiomyopathy due to chemotherapy Chronic pain syndrome Depression Grand mal seizure disorder History of rectal bleeding recent adm to [facility], found to have hemorrhoids, hgb stable at 15 HLD (hyperlipidemia) HTN (hypertension) IBS (irritable bowel syndrome) Kidney lesion Malignant thymoma Pericardial effusion with cardiac tamponade PTSD (post-traumatic stress disorder) Pulmonary embolism Raynaud's disease Syncopal episodes Tachy-maryan syndrome Surgical History H/O abdominal surgery History of back surgery S/P placement of cardiac pacemaker S/P thoracotomy Status post creation of pericardial window Family History Other No significant family history Social History Smoking Status: Never smoker Second Hand Exposure: No; Do You Dip or Chew Tobacco: No; Tobacco Cessation Education Requested by Patient: No Hx Alcohol Use: No Hx Substance Use: No Preferred Language: Trinidadian Communication Ability: Effective Dispatcher Maintenance Service Required: No Beliefs That Will Affect Care: None Current Living Situation: Spouse Current Living Situation Comment: adult child and two dogs Other Information That Helps Us Care for You: No Feels Safe at Home: Yes Safety Concerns: Feels Safe At This Time Assistive Devices: CPAP Review of Systems Review of Systems: ROS: Gen: Denies weakness, fevers, weight loss Eyes: No eye redness, or pain, no recent vision changes Resp: No SOB, no cough Cardio: No palpitations/irregular beats, no chest pain GI: As per HPI, otherwise (-) : Denies pain on urination Skin: No jaundice, itching or new rashes Hem: bruises easily on Eliquis, no large bruises or recent nose bleeds/bleeding gums. Physical Exam Constitutional: WD/WN, vitals as above Eyes: PERRL, conjunctivae normal, anicteric sclerae ENMT: external ear and nose normal, oropharynx normal Neck: trachea midline, no thyromegaly Respiratory: normal respiratory effort, lungs clear to auscultation Cardiovascular: RRR, no murmur, no edema Gastrointestinal (Abdomen): extensive abdominal scars, BS hypoactive, abdomen is soft and non distended. He is very tender over the entire abdomen. Musculoskeletal: no cyanosis or clubbing, extremities motor strength 5/5 Skin: no rashes, warm and dry Neurologic: PERRL, EOMI, accommodation nl, no face palsy, no dysarthria Psychiatric: A+Ox3, euthymic affect Lymphatic: no cervical or axillary lymphadenopathy Results & Data Vital Signs (Past 12 Hours) Vital Signs Temp Pulse Pulse Resp BP BP Pulse Ox 02/16/23 11:49 36.5 C 62 20 145/81 H 98 02/16/23 07:56 36.6 C 66 16 116/74 97 02/16/23 05:56 60 02/16/23 02:20 61 O2 Del Method 02/16/23 11:49 Room Air 02/16/23 07:56 Room Air 02/16/23 05:56 02/16/23 02:20 Laboratory Results WBC 8, Hb 17.9, HCT 50, PLT 201, NA 139, K4.0, CL 106, CO2 27, BUN 9, CR 0.88, glucose 144, T. bili 1.3, AST 15, ALT 19, alk phos 50, lipase 34 Diagnostic Findings CTAP w IV at [facility] on 02/13/23: 1. No bowel wall thickening or obstruction. 2. Normal appendix. 3. Left-sided nephrolithiasis. No ureteral stones. No hydronephrosis. 4. There is a 9 mm enhancing exophytic lesion within the upper pole of the left kidney. This was not well evaluated on the prior MRI due to the artifact at this location. This has slightly increased in size compared to the prior CT examination and is therefore highly suspicious for renal cell carcinoma. Nonemergent urology consultation recommended. 5. Additional stable findings as described above.
[2023-02-16] MEDS: hydrOXYzine HCl 25 MG TAB PO PRN ×2 (13:00→20:47)
[2023-02-16] MEDS ORDERED: GADOBUTROL 65ML VIAL IV ONE (14:16)
--- NOTE | 2023-02-16 14:40 | Anesthesiology Consultation ---
Date of Service February 16, 2023 Assessment & Plan (1) Encounter for pre-operative examination: Chart Review Chart Review: Acceptable Risk for Surgery, Patient NOT seen in Pre Admission Testing and desolderer initiated Consults Requested none History Surgery Operation Date: 02/16/23 17:45 Proposed Procedures p Esophagogastroduodenoscopy Dr Yañez - Ofe Yañez, DO Height/Weight Height: 5 ft 5 in Weight: 78.2 kg Allergies Allergy/AdvReac Type Severity Reaction Status Date / Time vaccine adjuvant system, Allergy Severe Numbness Verified 02/16/23 14:23 AS01B liposomal in limbs [From Shingrix (PF)] varicella-zoster virus Allergy Severe Numbness Verified 02/16/23 14:23 glycoprotein E, recombinant in limbs [From Shingrix (PF)] ciprofloxacin [From Cipro] Allergy Intermediate Rash Verified 02/16/23 14:23 duloxetine [From Cymbalta] Allergy Intermediate unable to Verified 02/16/23 14:23 void venlafaxine Allergy Intermediate Dizziness Verified 02/16/23 14:24 Medications Home Medications Medication Instructions Recorded Confirmed Last Taken pravastatin 40 mg tablet 40 mg PO HS 04/04/18 02/15/23 02/14/23 baclofen 10 mg tablet 10 mg PO HS PRN Muscle Spasm 01/27/20 02/15/23 02/13/23 cyanocobalamin (vitamin B-12) 500 1,000 mcg PO QAM 01/27/20 02/15/23 02/15/23 mcg tablet (Vitamin B-12) hydroxyzine HCl 25 mg tablet 25 mg PO Q6H PRN Anxiety 01/27/20 02/15/23 02/13/23 apixaban 5 mg tablet (Eliquis) 5 mg PO BID 07/18/21 02/15/23 02/15/23 levetiracetam 500 mg tablet 1,000 mg PO BID 07/18/21 02/15/23 02/15/23 metoprolol succinate 50 mg 25 mg PO QAM 07/18/21 02/15/23 02/15/23 tablet,extended release 24 hr hyoscyamine sulfate 0.125 mg tablet 0.125 mg PO .BID-QID PRN Abdominal 02/13/23 02/15/23 02/15/23 Discomfort pantoprazole 40 mg tablet,delayed 40 mg PO BID 30 days #60 tabs 02/13/23 02/15/23 02/15/23 release melatonin 3 mg tablet 3 mg PO HS PRN Insomnia 02/15/23 02/15/23 Unknown Active Medications Generic Name Dose Route Start Last Admin Trade Name Apolinarq PRN Reason Stop Dose Admin Apixaban 5 mg 02/15/23 21:00 02/16/23 08:12 Apixaban 5 Mg Tablet PO 03/17/23 20:59 5 mg BID ADRIÁN Administration Cyanocobalamin 1,000 mcg 02/16/23 09:00 02/16/23 08:12 Cyanocobalamin (B-12) 500 Mcg Tablet PO 03/18/23 08:59 1,000 mcg QAM ADRIÁN Administration Hydroxyzine HCl 25 mg 02/15/23 19:44 02/16/23 13:00 Hydroxyzine Hcl 25 Mg Tab PO 03/17/23 19:43 25 mg Q6H PRN Administration Anxiety Pantoprazole Sodium 40 mg/ 10 mls @ 5 mls/min 02/15/23 21:00 02/16/23 08:10 Syringe IV 03/17/23 20:59 5 mls/min BID ADRIÁN Administration Levetiracetam 1,000 mg 02/15/23 21:00 02/16/23 08:12 Levetiracetam 500 Mg Tab PO 03/17/23 20:59 1,000 mg BID ADRIÁN Administration Metoprolol Succinate 25 mg 02/16/23 09:00 02/16/23 08:12 Metoprolol Succ 25mg Ext Rel Tab PO 03/18/23 08:59 25 mg QAM ADRIÁN Administration Morphine Sulfate 3 mg 02/15/23 19:44 02/16/23 11:47 Morphine Sulfate 4 Mg/Ml 1 Ml Carp\Vial IV 02/16/23 19:43 3 mg Q4H PRN Administration Severe Pain (Scale 7, 8, 9,10) Oxycodone HCl 5 mg 02/15/23 19:44 02/16/23 10:10 Oxycodone Hcl Ir 5 Mg Tab (Immediate Release) PO 03/01/23 19:43 5 mg Q6H PRN Administration Moderate Pain (Scale 4, 5, 6) Pravastatin Sodium 40 mg 02/15/23 21:00 02/15/23 21:15 Pravastatin Sod 40 Mg Tab PO 03/17/23 20:59 40 mg HS ADRIÁN Administration NPO Date Last Intake of Fluids: 02/16/23 Time Last Intake of Fluids: 11:15 Last Intake of Fluids Comment: sip with med Date Last Intake of Solids: 02/14/23 Time Last Intake of Solids: 08:00 Past Medical History Medical History Atrial fibrillation Cardiomyopathy due to chemotherapy Chronic pain syndrome Depression Encounter for pre-operative examination Grand mal seizure disorder History of rectal bleeding recent adm to [facility], found to have hemorrhoids, hgb stable at 15 HLD (hyperlipidemia) HTN (hypertension) IBS (irritable bowel syndrome) Kidney lesion Malignant thymoma Pericardial effusion with cardiac tamponade PTSD (post-traumatic stress disorder) Pulmonary embolism Raynaud's disease Syncopal episodes Tachy-maryan syndrome Past Family History Family History Other No significant family history Past Surgical History Surgical History H/O abdominal surgery History of back surgery S/P placement of cardiac pacemaker S/P thoracotomy Status post creation of pericardial window Social History Smoking Status: Never smoker Do You Dip or Chew Tobacco: No Hx Alcohol Use: No Alcohol type: beer alcohol intake frequency: holidays/special occasions only Hx Substance Use: No substance use type: does not use Physical Exam Vital Signs Last Vital Signs Temp 36.5 C 02/16/23 11:49 Pulse 62 02/16/23 11:49 Resp 20 02/16/23 11:49 BP 145/81 H 02/16/23 11:49 Pulse Ox 98 02/16/23 11:49 O2 Del Method Room Air 02/16/23 11:49 Testing Laboratory Results 02/16/23 07:46 02/16/23 07:46 PT 10.9 Seconds (9.0-12.0) 02/15/23 15:07 INR 1.0 (0.9-1.1) 02/15/23 15:07 APTT 26.4 Seconds (21.0-31.0) 02/15/23 15:07 Urine Color Yellow 02/15/23 17:38 Urine Appearance Clear (Clear) 02/15/23 17:38 Urine pH 5.5 (4.5-7.5) 02/15/23 17:38 Ur Specific [place] 1.018 (1.000-1.030) 02/15/23 17:38 Urine Protein Negative (Negative) 02/15/23 17:38 Urine Glucose (UA) Negative (Negative) 02/15/23 17:38 Urine Ketones Negative (Negative) 02/15/23 17:38 Urine Nitrite Negative (Negative) 02/15/23 17:38 Ur Leukocyte Esterase Negative (Negative) 02/15/23 17:38 Blood Type A Negative 02/15/23 15:07 Antibody Screen NEGATIVE 02/15/23 15:07 Electrocardiogram Date: 02/15/23 Normal sinus rhythm Normal ECG When compared with ECG of 13-FEB-2023 13:37, No significant change was found 25mm/s10mm/[id number] 243CID: 24Unconfirmed Vent. rate 81 BPM NH interval 150 ms QRS duration 92 ms QT/QTc 382/443 ms Chest X-Ray Date: 02/15/23 HISTORY: Atypical chest pain. COMPARISON: Chest 02/13/2023. FINDINGS: No pneumothorax. No pleural effusions. There is a left-sided dual- chamber pacemaker, poststernotomy changes, and spinal stimulator leads again noted. Chronic elevation of the left hemidiaphragm. There is chronic deformity of the left chest wall and suture material again noted within the left hemithorax. The right lung is clear. No evidence for pulmonary edema. No new focal lung consolidations to suggest a pneumonia. IMPRESSION: No significant change compared to the prior study. No acute process. Echocardiogram Date: 01/28/20 EF: 50-55 RWMA: + hypokinetic effusion
[2023-02-16] MEDS ORDERED: PROPOFOL IV EMULSION 10 MG/ML 20 ML VIAL IV ONE (14:58)
[2023-02-16] MEDS ORDERED: LIDOCAINE 2% 2 ML VIAL/AMP(20MG/ML) INFIL ONE (14:58)
--- NOTE | 2023-02-16 14:59 | Magnetic Resonance Report ---
MRI OF THE ABDOMEN COMBO CLINICAL HISTORY: Left renal lesion. COMPARISON STUDY: Abdominal CT dated 02/13/2023. TECHNIQUE: MRI of the abdomen is performed transverse T1 and T2-weighted sequences in the axial and c oronal planes. Contrast enhanced sequences were acquired following the IV administration of 7.5 cc o f Gadavist. Subtraction imaging and diffusion-weighted imaging were utilized. The examination is deg raded by motion artifact. FINDINGS: Lower chest: No pleural effusion is identified. The heart is enlarged without pericardial effusion.. Liver: The liver is normal in size, contour, and signal intensity. No intrahepatic biliary ductal dil atation is seen. The hepatic veins and portal veins are patent. Gallbladder: Unremarkable. Spleen: Normal in size and signal intensity. Pancreas: An 8 mm cyst is again seen in the pancreatic head/neck. This likely represents a sidebranch IPMN. Adrenal glands: Unremarkable. Kidneys: The kidneys are normal in size and without hydronephrosis. The kidneys enhance and excrete s ymmetrically. A 9 mm lesion arising from the upper pole of left kidney is difficult to characterize d ue to small size and motion artifact. This appears to demonstrate postcontrast enhancement and is chitra picious for a small renal neoplasm. No additional findings are suspicious for enhancing cortical lesi on. Scattered subcentimeter cysts are incidentally noted. Abdominal aorta: Normal in course and caliber. Bowel: Visualized portions of the small bowel and colon show no evidence of obstruction. Peritoneum: There is no abdominal ascites. Lymphadenopathy: None. Skeletal structures: There is no evidence of destructive bony lesion. Postoperative change is noted i n lumbar spine. Leads are noted in the lower thoracic spinal canal. Soft tissues: A neurostimulator device is present in the left gluteal soft tissues. IMPRESSION: 1. Motion compromised examination. 2. The 9 mm lesion arising from the upper pole of left kidney is difficult to characterize due to sma ll size and motion artifact. This appears to show postcontrast enhancement and a small renal neoplasm is not excluded. A 6 month follow-up examination is recommended for reassessment. A renal protocol C T is recommended over MRI due to the degree of motion artifact. 3. No additional findings are suspicious for enhancing cortical lesion. 4. Additional findings as above. ACT 112: Negative or not required by law. Electronically signed by: Phil Stephens M.D. 02/16/2023 2:58 PM
--- NOTE | 2023-02-16 15:07 | GI REPORT ---
Patient Name: Sean Ly Procedure Date: 02/16/2023 2:29 PM Date of : 1970 Admit Type: Inpatient Age: 53 Gender: Male Attending MD: Ofe Yañez DO, Procedure: Upper GI endoscopy Providers: Ofe Yañez DO Referring MD: Richi Falk Md, Leo Griffin Md Indications: Epigastric abdominal pain Medicines: Propofol per Anesthesia Complications: No immediate complications. Estimated blood loss: None. Estimated Blood Loss: Estimated blood loss: none. Procedure: Pre-Anesthesia Assessment: - Prior to the procedure, a History and Physical was performed, and patient medications, allergies and sensitivities were reviewed. The patient's tolerance of previous anesthesia was reviewed. - The risks and benefits of the procedure and the sedation options and risks were discussed with the patient. All questions were answered and informed consent was obtained. - Patient identification and proposed procedure were verified prior to the procedure by the physician and the nurse. The procedure was verified in the pre-procedure area in the procedure room. - Mental Status Examination: alert and oriented. Airway Examination: normal oropharyngeal airway and neck mobility. Respiratory Examination: clear to auscultation. CV Examination: normal. Abdominal Examination: bowel sounds present, abdomen soft and non-tender, no masses or organomegaly noted. - ASA Grade Assessment: III - A patient with severe systemic disease. After obtaining informed consent, the endoscope was passed under direct vision. Throughout the procedure, the patient's blood pressure, pulse, and oxygen saturations were monitored continuously. The Endoscope was introduced through the mouth, and advanced to the second part of duodenum. The upper GI endoscopy was accomplished without difficulty. The patient tolerated the procedure well. Findings: The esophagus was normal. No esophagitis. A medium-sized hiatal hernia was present. No ulcers. The examined duodenum was normal. Impression: - Normal esophagus. - Medium-sized hiatal hernia. - Normal examined duodenum. - No specimens collected. Recommendation: - Return patient to [facility] for [facility] care. Sunil Estes DO 02/16/2023 3:06:23 PM This report has been signed electronically. Note Initiated On: 02/16/2023 2:29 PM Number of Addenda: 0 I attest to the content of the Intraoperative Record and orders documented therein, exceptions below {[id number]}
--- NOTE | 2023-02-16 16:05 | Anesthesiology Progress Note ---
Date of Service February 16, 2023 Anesthesia Post Procedure Vital Signs Vital Signs: Temp Pulse Pulse Pulse Resp BP BP 02/16/23 15:56 36.3 C L 66 16 118/73 02/16/23 15:37 63 67 20 107/75 02/16/23 15:21 62 67 18 99/60 L 02/16/23 15:06 67 67 12 88/55 L 02/16/23 11:49 36.5 C 62 20 145/81 H 02/16/23 07:56 36.6 C 66 16 02/16/23 05:56 60 02/16/23 02:20 61 02/15/23 19:45 69 02/15/23 23:47 36.5 C 62 18 02/15/23 21:49 02/15/23 19:44 36.6 C 65 18 02/15/23 19:44 02/15/23 19:26 63 18 128/85 02/15/23 18:41 63 18 02/15/23 17:38 74 18 BP Pulse Ox Pulse Ox O2 Del Method O2 Del Method 02/16/23 15:56 98 Room Air 02/16/23 15:37 97 Room Air 02/16/23 15:21 96 Room Air 02/16/23 15:06 96 Room Air 02/16/23 11:49 98 Room Air 02/16/23 07:56 116/74 97 Room Air 02/16/23 05:56 02/16/23 02:20 02/15/23 19:45 02/15/23 23:47 110/70 98 Room Air 02/15/23 21:49 Room Air 02/15/23 19:44 144/81 H 98 Room Air 02/15/23 19:44 98 Room Air 02/15/23 19:26 97 Room Air 02/15/23 18:41 126/80 96 02/15/23 17:38 120/90 98 Pain Intensity Bilateral Back: Pain Intensity: 7 Transfer of Care Handoff Completed per policy Notes Mental Status: alert / awake / arousable and participated in evaluation Patient Amnestic to Procedure: Yes Nausea / Vomiting: adequately controlled Pain: adequately controlled Airway Patency, RR, SpO2: stable & adequate BP & HR: stable & adequate Hydration State: stable & adequate Anesthetic Complications: no major complications apparent
--- NOTE | 2023-02-16 16:20 | Hospitalist Progress Note ---
Date of Service February 16, 2023 Assessment & Plan (1) Abdominal pain, epigastric: Plan 53-year-old male with PMH of malignant thymoma s/p removal of thymoma, PTSD, depression, cardiomyopathy 2/2 chemo, atrial fibrillation on Eliquis, HLD presented to the ED 02/15 with complaint of abdominal pain. 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 Patient reports left flank pain on and off ongoing for 1 year. He also reported difficulty initiating and maintaining urinary flow or stream. He is being managed for the following: Melena/Likely UGI bleed Likely Gastritis/PUD Upper abdominal pain Patient presenting with melena and epigastric burning sensation. Admitting hemoglobin of 17.9, patient was hemodynamically stable at presentation. Lipase WNL Vital stable, no leukocytosis H/H: 17.9/50. Hgb: 17.8 on 02/13/2023, lipase WNL 02/13/2023 CTAP with left kidney lesion, otherwise no bowel wall thickening or obstruction, normal appendix. 02/16 MRI abdomen: 9 mm lesion from the upper pole of left kidney, small renal neoplasm is not excluded. Renal protocol CT at 6-month follow-up is recommended for reassessment. Vitals has been stable, hemoglobin has been stable. GI evaluated, status post diagnostic EGD 02/16 [normal study] with a plan for outpatient colonoscopy. Follow-up with GI as an outpatient. We will follow further GI recommendation. Continue clears, advance diet as tolerated. Monitor H&H. Continue PPI IV twice daily for now. Left flank pain Left kidney lesion CTAP and MRI abdomen [see above]. 08/26/2021 CT abdomen pelvis with 8 mm left kidney lesion. 10/11/2021 MRI abdomen with 7 mm left kidney lesion Patient with prior diagnosis of left kidney lesion, comes in with on and off left flank pain for 1 year. Patient also has difficulty initiating and maintaining urinary flow stream Urine analysis unremarkable. Urology evaluated, no acute intervention for now. Tamsulosin for LUTS. Follow- up with urology as an outpatient. Other chronic medical conditions: A-fib: On Eliquis, currently sinus rhythm. Continue Eliquis and metoprolol succinate. HLD: Continue pravastatin Depression and PTSD: Continue hydroxyzine as needed Malignant thymoma: Status postsurgical resection and chemotherapy. Follows [place] oncologist. Tachybradycardia syndrome: Status post pacemaker Seizure disorder: Continue home Keppra DVT prophylaxis: Patient already on Eliquis Full code PCP: Dr. Dr Dmitry [facility] Admission and Anticipated Discharge Date Admission Date: February 15, 2023 Subjective Patient seen and examined at bedside as a follow-up of melena, abdominal pain, left flank pain, left kidney lesion. 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 Physical Exam Physical Exam: GENERAL: Alert and oriented x3. NAD, on RA. HEENT: No pallor, no icterus. Pupils equal, round and reactive to light. Oral mucosa moist. NECK: No JVD, no neck masses. HEART: S1 and S2 heard. Regular rate and rhythm. No murmur, no gallop. RESPIRATORY SYSTEM: Normal AP diameter. No accessory muscle use. No wheezing, no crackles. ABDOMEN: Soft, bowel sounds present, tender, no distention. CENTRAL NERVOUS SYSTEM: No facial droop. Speech is clear. Obeys simple commands. Moves extremities. EXTREMITIES: No edema, no erythema seen. Left CVA tender. Results & Data Results & Data Vital Signs (Past 12 Hours) Vital Signs Temp Pulse Pulse Pulse Resp BP BP 02/16/23 15:37 63 67 20 107/75 02/16/23 15:21 62 67 18 99/60 L 02/16/23 15:06 67 67 12 88/55 L 02/16/23 11:49 36.5 C 62 20 145/81 H 02/16/23 07:56 36.6 C 66 16 116/74 02/16/23 05:56 60 Pulse Ox O2 Del Method 02/16/23 15:37 97 Room Air 02/16/23 15:21 96 Room Air 02/16/23 15:06 96 Room Air 02/16/23 11:49 98 Room Air 02/16/23 07:56 97 Room Air 02/16/23 05:56
[2023-02-16] MEDS: PRAVASTATIN SOD 40 MG TAB PO SCH (20:41)
[2023-02-16] MEDS ORDERED: TAMSULOSIN HCL 0.4 MG CAP PO SCH (21:00)
[2023-02-17 06:37] LABS: Hematocrit (blood only) 47.3 % (42.0-52.0); Hemoglobin 17.1 g/dl (14.0-18.0); Mean Corpuscular Hemoglobin 31.5 pg (25.0-34.0); Mean Corpuscular Hgb Conc 36.2 g/dL (32.0-36.0); Mean Corpuscular Volume 87.1 fL (80.0-100.0); Mean Platelet Volume 9.7 fL (9.4-12.4); Platelet Count 163 K/uL (130-400); RDW Coefficient of Variation 12.6 % (11.5-14.5); RDW Standard Deviation 40.4 fL (36.4-46.3); Red Blood Count 5.43 M/uL (4.70-6.10); White Blood Count 5.33 K/ul (4.8-10.8)
[2023-02-17 06:57] LABS: BUN Creatinine Ratio 13.4 (10-20); Calcium 8.8 mg/dl (8.6-10.3); Creatinine Clr Calc Pharmacy 84.9 ml/min; Est GFR (African American) 102.9 ml/min; Est GFR (Non-African American) 88.8 ml/min; Magnesium 1.6 mg/dl (1.7-2.4); Phosphorus 2.8 mg/dl (2.5-4.9); Potassium 3.9 mmol/L (3.5-5.1)
[2023-02-17] MEDS: MAGNESIUM SULFATE / D5W 1 GM/100 ML BAG IV SCH ×2 (08:49→10:46)
[2023-02-17] MEDS: APIXABAN 5 MG TABLET PO SCH (08:52)
[2023-02-17] MEDS: CYANOCOBALAMIN (B-12) 500 MCG TABLET PO SCH (08:52)
[2023-02-17] MEDS: levETIRAcetam 500 MG TAB PO SCH (08:52)
[2023-02-17] MEDS: METOPROLOL SUCC 25MG EXT REL TAB PO SCH (08:52)
[2023-02-17] MEDS: PANTOprazole 40 MG in SYRINGE 0 ML IV SCH (08:52)
[2023-02-17] MEDS: oxyCODONE HCL IR 5 MG TAB (IMMEDIATE RELEASE) PO PRN (08:55)
--- NOTE | 2023-02-17 12:34 | Discharge Summary ---
Date of Service February 17, 2023 Admission HPI Per Admitting Provider Patient is a 53-year-old male with PMH thymoma, history of left lobectomy, PTSD, depression, history of cardiomyopathy secondary to chemo, atrial fibrillation chronically anticoagulated on Eliquis, dyslipidemia presented to ER with complaint of abdominal pain. Patient reports for the past year has been having left flank pain. Also reports epigastric pain that has been ongoing for a year. He states in past he thinks he was diagnosed with hiatal hernia. He does state for the past month he has been noting some indigestion, burning sensation to epigastric region with eating. Also states for the past month has had decreased appetite and intermittent nausea. He reports 5 days ago had 1 episode of vomiting and noted some red coloration to vomit. Also reports 5 days ago had black-colored stools for couple days. Today reports had bowel movement and stool looked brown however when he wiped noted black coloration on toilet paper. Denies any bright red blood per rectum. States for the past 5 days has been having diffuse cramping abdominal discomfort as well. Has chronic difficulty with initiating urine stream as well as decreased urine stream. Reports for approximately past year has had intermittent dysuria. Denies any noted hematuria. Patient with known left kidney lesion that was seen on abdominal imaging in 2021. He reports that he has forgotten about left kidney lesion and did not further follow-up. Seen at [facility] ER on 02/13/2023 for abdominal pain, melena. He had heme positive stools, Hgb: 17.8. CT abdomen pelvis was without bowel wall thickening or obstruction, no hydronephrosis, there was 9 mm lesion left kidney which has been seen on prior CTs. He was started on Protonix twice daily. Reports history of colonoscopy in past, Reports history internal hemorrhoids. C/O Intermittent chills. Thinks lost weight over past year. Also reports progressive fatigue and intermittent dizziness that has been ongoing for months. Denies fever, diarrhea, constipation, MATTHEW, syncope, vision changes, neck pain, CP, SOB, orthopnea, palpitations, cough, sore throat, choking, otalgia, rhinorrhea, paresthesias, extremity weakness, extremity edema, rashes. Admission Exam Per Admitting Provider General: mild distress secondary to reported left flank pain, WDWN Head: normocephalic, atraumatic Eyes: conjunctiva non-injected, anicteric ENT: normal inspection external ears, nose, mucous membranes moist Neck: supple, trachea midline Lungs: clear, no respiratory distress, no wheezing/rhonchi/rales CV: RRR, no murmur, no pretibial edema Abd: normal BS, soft, + diffuse tenderness to palpation RUQ, epigastric, LUQ, RLQ, LLQ without rebound. +L CVA tenderness to percussion Ext: no cyanosis, no calf tenderness Neuro: A&O x 3, no focal deficits noted, normal affect Skin: warm, dry Principal Diagnosis Likely gastritis/PUD Upper abdominal pain Left renal lesion Discharge Exam GENERAL: Alert and oriented x3. NAD, on RA. HEENT: No pallor, no icterus. Pupils equal, round and reactive to light. Oral mucosa moist. NECK: No JVD, no neck masses. HEART: S1 and S2 heard. Regular rate and rhythm. No murmur, no gallop. RESPIRATORY SYSTEM: Normal AP diameter. No accessory muscle use. No wheezing, no crackles. ABDOMEN: Soft, bowel sounds present, tender, no distention. CENTRAL NERVOUS SYSTEM: No facial droop. Speech is clear. Obeys simple commands. Moves extremities. EXTREMITIES: No edema, no erythema seen. Left CVA tender improving Discharge Data Allergies Allergy/AdvReac Type Severity Reaction Status Date / Time vaccine adjuvant system, Allergy Severe Numbness Verified 02/16/23 14:23 AS01B liposomal in limbs [From Shingrix (PF)] varicella-zoster virus Allergy Severe Numbness Verified 02/16/23 14:23 glycoprotein E, recombinant in limbs [From Shingrix (PF)] ciprofloxacin [From Cipro] Allergy Intermediate Rash Verified 02/16/23 14:23 duloxetine [From Cymbalta] Allergy Intermediate unable to Verified 02/16/23 14:23 void venlafaxine Allergy Intermediate Dizziness Verified 02/16/23 14:24 Consultations 02/15/23 17:29 ED Decision to Admit Stat 02/16/23 08:00 Consult Gastroenterology Routine Consult Urology Routine Procedures Performed Operation Date: 02/16/23 17:45 Actual Procedures p Esophagogastroduodenoscopy - Ofe Yañez, Ordered Studies 02/16/23 09:17 MR abdomen wo/w con Routine Hospital Course (1) Abdominal pain, epigastric: Plan 53-year-old male with PMH of malignant thymoma s/p removal of thymoma, PTSD, depression, cardiomyopathy 2/2 chemo, atrial fibrillation on Eliquis, HLD presented to the ED 02/15 with complaint of abdominal pain. Patient reported black stool and upper abdominal pain for 4 to 5 days ago [employer]. Patient reports left flank pain on and off ongoing for 1 year. He also reported difficulty initiating and maintaining urinary flow or stream. He is being managed for the following: Melena/Likely UGI bleed Likely Gastritis/PUD Upper abdominal pain Patient presenting with melena and epigastric burning sensation. Admitting hemoglobin of 17.9, patient was hemodynamically stable at presentation. Lipase WNL Vital stable, no leukocytosis H/H: 17.9/50. Hgb: 17.8 on 02/13/2023, lipase WNL 02/13/2023 CTAP with left kidney lesion, otherwise no bowel wall thickening or obstruction, normal appendix. 02/16 MRI abdomen: 9 mm lesion from the upper pole of left kidney, small renal neoplasm is not excluded. Renal protocol CT at 6-month follow-up is recommended for reassessment. Sidebranch IPMN lesion noted, pt instructed to f/u w/ GI as OP in 1-2 weeks of discharge. Vitals has been stable, hemoglobin has been stable. GI evaluated, status post diagnostic EGD 02/16 [normal study] with a plan for outpatient colonoscopy. Follow-up with GI as an outpatient. Patient tolerating diet. H&H is stable. Continue with PPI twice a day upon discharge. Left flank pain Left kidney lesion CTAP and MRI abdomen [see above]. 08/26/2021 CT abdomen pelvis with 8 mm left kidney lesion. 10/11/2021 MRI abdomen with 7 mm left kidney lesion Patient with prior diagnosis of left kidney lesion, comes in with on and off left flank pain for 1 year. Patient also has difficulty initiating and maintaining urinary flow stream Urine analysis unremarkable. Urology evaluated, no acute intervention for now. Tamsulosin for LUTS. Follow- up with urology as an outpatient. Patient reports better pain control. Other chronic medical conditions: A-fib: On Eliquis, currently sinus rhythm. Continue Eliquis and metoprolol succinate. HLD: Continue pravastatin Depression and PTSD: Continue hydroxyzine as needed Malignant thymoma: Status postsurgical resection and chemotherapy. Follows [facility] oncologist. Tachybradycardia syndrome: Status post pacemaker Seizure disorder: Continue home Keppra DVT prophylaxis: Patient already on Eliquis Full code PCP: Dr. Dr Dmitry Falk at [facility] Patient being discharged home with following instruction at the point of discharge: Follow-up with your primary care physician within a week, likely you will need labs CBC/CMP/magnesium/phosphorus. Follow-up with your GI doctor in 1 to 2 weeks time, possible colonoscopy as an outpatient and further evaluation/monitoring of the sidebranch IPMN noted during this admission's abdominal imaging. A new medication Flomax has been added to help with your urinary stream. Follow-up with your urology in 1 to 2 weeks time for further evaluation of your left renal lesion. Take your medications as prescribed. Home Health Attestation I certify that this patient is under my care and that I, or a physicians television production assistant working with me, had a face to-face encounter that meets the home health [id number] encounter requirements with this patient. The encounter with the patient was in whole, or in part, for the following medical condition, which is the primary reason for home health care (list medical condition): I certify that, based on my findings, the following services are medically necessary home health services: My clinical findings support the need for the above services because: Further, I certify that my clinical findings support that this patient is homebound (i.e. absences from home require considerable and taxing effort and are for medical reasons or yarsanism services or infrequently or of short duration when for other reasons) because: Certification for Home Health Services: Based on the above findings, I certify that this patient is confined to the home and needs intermittent mcfp care, physical therapy and/or speech therapy or continues to need occupational therapy. The patient is under my care, and I have initiated the establishment of the plan of care. This patient will be followed by a physician who will periodically review the plan of care. Total Time Total Time Spent Total Time Spent (In Minutes): 45 Discharge Plan Discharge Items Patient Disposition: Home - Self-Care Reason For Visit: ABDOMINAL PAIN Discharge Diagnosis: Likely gastritis/PUD Upper abdominal pain Left renal lesion Activity: Resume your previous activity Non-emergency contact: Primary Care Provider Call non-emergency contact if: you have any medication questions, your symptoms worsen, your pain is worsening and your temperature is above 101 Follow-up/Referrals: Marychuy Minaya CRNP [Nurse Practitioner] - (The Urology office will contact you with an appointment.) Richi Bishop MD [Primary Care Provider] - (The [place] office will call you with an appointment for follow up. Please contact them if you do not receive a call from them. ) Diet: Heart Healthy Addtl Attending Provider Instructions: Follow-up with your primary care physician within a week, likely you will need labs CBC/CMP/magnesium/phosphorus. Follow-up with your GI doctor in 1 to 2 weeks time, possible colonoscopy as an outpatient and further evaluation/monitoring of the sidebranch IPMN noted during this admission's abdominal imaging. A new medication Flomax has been added to help with your urinary stream. Follow-up with your urology in 1 to 2 weeks time for further evaluation of your left renal lesion. Take your medications as prescribed. Pending Studies at Discharge: No Stand-Alone Forms: My [facility] [employer], Smoking Cessation Medications and DC Order Prescriptions: New tamsulosin 0.4 mg Capsule 0.4 mg PO HS Qty: 30 0RF oxycodone 5 mg Tablet 5 mg PO Q6H PRN (Reason: severe pain (scale score 7-10)) 5 Days Qty: 20 0RF Rx Instructions: take for severe pain only upto four time a day. polyethylene glycol 3350 [Miralax] 17 gram Powder In Packet 17 g PO DAILY PRN (Reason: laxative effect) Qty: 30 0RF Continued pravastatin 40 mg Tablet 40 mg PO HS cyanocobalamin (vitamin B-12) [Vitamin B-12] 500 mcg Tablet 1,000 mcg PO QAM baclofen 10 mg tablet 10 mg PO HS PRN (Reason: Muscle Spasm) hydroxyzine HCl 25 mg tablet 25 mg PO Q6H PRN (Reason: Anxiety) hyoscyamine sulfate 0.125 mg Tablet 0.125 mg PO .BID-QID PRN (Reason: Abdominal Discomfort) melatonin 3 mg Tablet 3 mg PO HS PRN (Reason: Insomnia) pantoprazole 40 mg tablet,delayed release (DR/EC) 40 mg PO BID 30 Days Qty: 60 0RF metoprolol succinate 50 mg tablet extended release 24 hr 25 mg PO QAM levetiracetam 500 mg tablet 1,000 mg PO BID Eliquis 5 mg tablet 5 mg PO BID Discharge Orders: Discharge Order (Routine); Ordered 02/17/23 Ordered By: Leo Griffin Admission Data Admit Date/Time: 02/15/23 17:44 Attending Provider: Leo Griffin Admit Provider: Magalys Gould Primary Care Provider: Richi Bishop Other Providers: Magalys Gould ; Ofe Yañez ; Jaxon German ; [facility] Other Interventions: Discharge Summary Assessment (RN) Last Done: 02/16/23 15:31
--- NOTE | 2023-02-17 22:54 | Electrocardiogram Report ---
Test Reason : Blood Pressure : / mmHG Vent. Rate : 081 BPM Atrial Rate : 081 BPM P-R Int : 150 ms QRS Dur : 092 ms QT Int : 382 ms P-R-T Axes : 042 023 049 degrees QTc Int : 443 ms Normal sinus rhythm Normal ECG When compared with ECG of 13-FEB-2023 13:37, No significant change was found Confirmed by Guille Pedersen ([id number]) on 02/17/2023 10:54:06 PM Referred By: Confirmed By:Guille Pedersen
== END 2023-02-17 14:30 | disposition home or self-care (01) ==
LOC: 2W 14:41 → ED 14:41 → SUATTDRO 17:44 → 2W 19:26

== ENCOUNTER 2024-09-13 05:38 | Observation (INO) ==
--- NOTE | 2024-08-18 13:19 | PAT Medication Instructions ---
Medication Instructions Date of Service August 18, 2024 Home Medications baclofen 10 mg tablet 10 mg PO HS PRN Muscle Spasm cyanocobalamin (vitamin B-12) 500 mcg tablet (Vitamin B-12) 1,000 mcg PO QAM apixaban 5 mg tablet (Eliquis) 5 mg PO BID levetiracetam 500 mg tablet 1,000 mg PO BID hyoscyamine sulfate 0.125 mg tablet 0.125 mg PO BID melatonin 3 mg tablet 3 mg PO HS PRN Insomnia hydroxyzine HCl 10 mg tablet 10 mg PO TID PRN anxiety/sleep sildenafil 100 mg tablet 50 mg PO DAILY PRN Erectile Dysfunction magnesium oxide 420 mg tablet 420 mg PO QPM diclofenac sodium 1 % topical gel (Voltaren Arthritis Pain) 2 g topical TID PRN Pain metoprolol succinate 25 mg tablet,extended release 24 hr 25 mg PO HS hydrocodone 5 mg-acetaminophen 325 mg tablet 1 tab PO TID PRN rosuvastatin 20 mg tablet 20 mg PO QPM tamsulosin 0.4 mg capsule 0.4 mg PO HS ASK your prescriber and surgeon apixaban 5 mg tablet (Eliquis) 5 mg PO BID STOP taking 24 hours before surgery sildenafil 100 mg tablet 50 mg PO DAILY PRN Erectile Dysfunction diclofenac sodium 1 % topical gel (Voltaren Arthritis Pain) 2 g topical TID PRN Pain DO NOT take the morning of surgery cyanocobalamin (vitamin B-12) 500 mcg tablet (Vitamin B-12) 1,000 mcg PO QAM hydroxyzine HCl 10 mg tablet 10 mg PO TID PRN anxiety/sleep hyoscyamine sulfate 0.125 mg tablet 0.125 mg PO BID Take morning of surgery With a small sip of water, OTHERWISE NOTHING TO EAT OR DRINK AFTER MIDNIGHT: levetiracetam 500 mg tablet 1,000 mg PO BID hydrocodone 5 mg-acetaminophen 325 mg tablet 1 tab PO TID PRN (if needed) Take evening before surgery baclofen 10 mg tablet 10 mg PO HS PRN Muscle Spasm (if needed) levetiracetam 500 mg tablet 1,000 mg PO BID hyoscyamine sulfate 0.125 mg tablet 0.125 mg PO BID melatonin 3 mg tablet 3 mg PO HS PRN Insomnia (if needed) hydroxyzine HCl 10 mg tablet 10 mg PO TID PRN anxiety/sleep (if needed) magnesium oxide 420 mg tablet 420 mg PO QPM metoprolol succinate 25 mg tablet,extended release 24 hr 25 mg PO HS hydrocodone 5 mg-acetaminophen 325 mg tablet 1 tab PO TID PRN (if needed) rosuvastatin 20 mg tablet 20 mg PO QPM tamsulosin 0.4 mg capsule 0.4 mg PO HS Other Notes If you have any questions please call us at [phone] or [phone] or [phone] or [phone]
--- NOTE | 2024-08-29 12:52 | Anesthesiology Consultation ---
Date of Service August 29, 2024 Assessment & Plan (1) Encounter for pre-operative examination: Plan - optimization form to be faxed to [facility] cardiology regarding overall cardiac status and patient reporting syncopal episodes last year. - post-op confusion/combativeness related to PTSD-patient states his being present often helps reduce this/calm reaction. Patient requests sedation prior to anything over his face or restraints in OR. OR made aware. - medical clearance 08/01/24: "...personal or family history of anesthesia problems...groggy after anesthesia...ASA class 3 male...elective intermediate to high risk cervical spine surgery...perioperative cardiac (for ACS) risk is 0.28%. Using RCRI tool, the patient's cardiac risk is 0 points (0.4%)...above average pulmonary risk due to mild COPD and un-optimized sleep apnea...overall low risk for perioperative complications and may proceed with surgery..." - cardiology office visit 07/19/24: "...chest pressure...shortness of breath...beginning to resolve...see if his symptoms resolve completely over the next couple of days...consideration is pericarditis given his discomfort with laying back...to see if his symptoms completely resolve...return to the clinic in 3 months..." Patient states chest discomfort fully resolved, denies recurrence. Patient mentioned cardiology was supposed to send clearance, I advised nothing was received and we will send their office a fax. Surgeon's office made aware. Chart Review Chart Review: Pending: Refer to Additional Notes / Consult section and Patient seen in Pre Admission Testing Teaching & Discussion Pre-Anesthesia Teaching/Discussion Notes: Instructed NPO after midnight before surgery, except medications with 15 cc of water. Medication instructions provided according to the PAT guidelines. History Surgery Operation Date: 09/13/24 07:15 Proposed Procedures p C5-C6, C6-C7 Cervical Artificial Disc Arthroplasty - Dudley Golden MD Height/Weight Height: 5 ft 8 in Weight: 87 kg Allergies Allergy/AdvReac Type Severity Reaction Status Date / Time ciprofloxacin [From Cipro] Allergy Intermediate Rash Verified 08/29/24 12:00 milnacipran AdvReac Severe Palpitations, Verified 08/29/24 12:00 urinary retention vaccine adjuvant system, AdvReac Severe Numbness Verified 08/29/24 12:00 AS01B liposomal in limbs [From Shingrix (PF)] varicella-zoster virus AdvReac Severe Numbness Verified 08/29/24 12:00 glycoprotein E, recombinant in limbs [From Shingrix (PF)] duloxetine [From Cymbalta] AdvReac Intermediate unable to Verified 08/29/24 12:00 void venlafaxine AdvReac Intermediate Dizziness Verified 08/29/24 12:00 nortriptyline AdvReac Unknown Nausea Verified 08/29/24 12:00 Medications Home Medications Medication Instructions Recorded Confirmed Last Taken baclofen 10 mg tablet 10 mg PO HS PRN Muscle Spasm 01/27/20 08/29/24 08/10/23 cyanocobalamin (vitamin B-12) 500 1,000 mcg PO QAM 01/27/20 08/29/24 11/02/23 mcg tablet (Vitamin B-12) apixaban 5 mg tablet (Eliquis) 5 mg PO BID 07/18/21 08/29/24 11/02/23 08:00 levetiracetam 500 mg tablet 1,000 mg PO BID 07/18/21 08/29/24 11/02/23 08:00 hyoscyamine sulfate 0.125 mg tablet 0.125 mg PO BID 02/13/23 08/29/24 11/02/23 08:00 melatonin 3 mg tablet 3 mg PO HS PRN Insomnia 02/15/23 08/29/24 Unknown hydroxyzine HCl 10 mg tablet 10 mg PO TID PRN anxiety/sleep 04/02/23 08/29/24 04/08/23 21:00 sildenafil 100 mg tablet 50 mg PO DAILY PRN Erectile 04/02/23 08/29/24 Unknown Dysfunction magnesium oxide 420 mg tablet 420 mg PO QPM 05/11/23 08/29/24 11/02/23 diclofenac sodium 1 % topical gel 2 g topical TID PRN Pain 05/16/23 08/29/24 Unknown (Voltaren Arthritis Pain) metoprolol succinate 25 mg 25 mg PO HS 11/02/23 08/29/24 11/01/23 tablet,extended release 24 hr hydrocodone 5 mg-acetaminophen 325 1 tab PO TID PRN prn 08/17/24 08/29/24 Unknown mg tablet rosuvastatin 20 mg tablet 20 mg PO QPM 08/17/24 08/29/24 Unknown tamsulosin 0.4 mg capsule 0.4 mg PO HS 08/17/24 08/29/24 Unknown Past Medical History Medical History (Updated 08/29/24 @ 13:46 by Stacey Salmon PA-C) Anticoagulant long-term use Atrial fibrillation BPH loc w urin obs/LUTS Cervical radiculopathy Chronic pain syndrome Depression 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 Fibromyalgia Grand mal seizure disorder last seizure 2020 Hiatal hernia History of cardiomyopathy due to chemo History of esophageal dilatation History of GI bleed 2022 History of pulmonary embolism 06/2021 after pacemaker insertion History of rectal bleeding ~2019, adm to [facility], found to have hemorrhoids; recently found to have "some bleeding recently (not currently) and had testing/scans at [facility], no source of bleeding found, will have upcoming colonoscopy, dr is not concerned at this time" History of renal cell cancer removal of tumor History of thymoma dx 2002, x6 surgeries and 2 rounds of chemo Hx of basal cell carcinoma Hx of melanoma of skin Hyperlipidemia Hypertension controlled, stable per pt IBS (irritable bowel syndrome) Malignant lung neoplasm left lung, partial removal, radiation 05/2023 Neuropathy feet and hands Neurostimulator device in situ 2016 or 2017, [facility] CRISTINE (obstructive sleep apnea) CPAP-compliant Pacemaker 06/2021, [facility], Medtronic>last checked 03/27/23 psh Pericardial effusion with cardiac tamponade hx Polycythemia PTSD (post-traumatic stress disorder) Raynauds disease Slow to wake up after anesthesia gets confused and violent sometimes waking up from his PTSD SOBOE (shortness of breath on exertion) Syncopal episodes last episode 2023-following with cardiology Tachy-maryan syndrome pacemaker present Patient denies h/o stroke, heart attack, DM, or blood transfusions. Exercise / Class Metabolic Activity II 4-5 Yardwork/Stairs/Walk up hill (denies chest discomfort or shortness of breath with one flight of stairs) Past Family History Family History Other No significant family history Past Surgical History Surgical History (Updated 08/29/24 @ 13:49 by Stacey Salmon PA-C) History of back surgery lumbar History of cardiac cath ~2-3 years ago, [facility], no stents>done prior to pericardial window sx. History of esophagogastroduodenoscopy (EGD) History of partial nephrectomy left Hx of basal cell carcinoma excision Hx of colonoscopy Hx of inguinal hernia repair Hx of melanoma excision S/P thoracotomy 3 or 4, all related to thymoma Status post creation of pericardial window 2-3 years ago, [facility] Past Anesthesia History No Family Hx of Anesthesia Complications History of PONV No Hx of PONV and No Hx of Motion Sickness Social History Smoking Status: Former smoker Smoking cigarettes per day: pack and a half Do You Dip or Chew Tobacco: No Hx Alcohol Use: Yes Alcohol type: beer alcohol intake frequency: holidays/special occasions only Hx Substance Use: No substance use type: does not use Review of Systems Patient denies chest pain, shortness of breath, dyspnea on exertion, fever, chills, cough, wheezing, or palpitations. Physical Exam Vital Signs Vitals BP 121/85 P 79 TEMP 97.8 SP02 95% on RA RESP 18 Physical Patient resting comfortably in chair in no acute distress, alert and oriented, responding appropriately throughout visit Full cervical extension range of motion without pain TMD 3.5 finger breadths Mallampati Score 3 Dentition: pin front upper tooth and chipped left lower back, denies loose teeth, caps/crowns, implants or bridges Lungs: normal respiratory effort. Good air movement, clear throughout to auscultation, no adventitious breath sounds Cardiac: regular rate and rhythm, no murmurs noted Carotid arteries: negative bruit bilat Lab Results Anesthesia Preop Results Results Anesthesia Widget: WBC 9.33 K/ul (4.8-10.8) 08/29/24 Hgb 17.2 g/dl (14.0-18.0) 08/29/24 Hct 50.3 % (42.0-52.0) 08/29/24 Plt 208 K/uL (130-400) 08/29/24 Na 140 mmol/L (136-145) 08/29/24 K 4.6 mmol/L (3.5-5.1) 08/29/24 Cl 105 mmol/L (98-107) 08/29/24 CO2 31 mmol/L (21-32) 08/29/24 BUN 13 mg/dl (6-23) 08/29/24 Creat 0.94 mg/dl (0.6-1.4) 08/29/24 Glucose Level 88 mg/dl (70-99(Fasting)) 08/29/24 PT 11.0 Seconds (9.0-12.0) 08/29/24 PTT 29 Seconds (21-31) 08/29/24 INR 1.0 (0.9-1.1) 08/29/24 Blood Type A Negative 08/29/24 Antibody Screen NEGATIVE 08/29/24 Testing Electrocardiogram Date: 07/19/24 NSR, rate 77 bpm Nonspecific T wave abnormality Moderate voltage criteria for LVH, may be normal variant Chest X-Ray Date: 07/19/24 Chronic left diaphragmatic elevation and left hemithoracic volume loss. Stable appearance since 2020. No acute findings. Echocardiogram Date: 05/12/23 EF 45-50% Mild global hypokinesis No LVH Mildly dilated RV No significant valvular abnormalities Stress Test Date: 01/19/24 MPHR < 85% (73%) Nondiagnostic exercise ECG EF 45% Global hypokinesis No regional wall motion abnormalities Cardiac Catheterization Date: 04/23/22 Left main: no evidence of disease LAD: mildly diseased Cx: mildly diseased RCA: mildly diseased Mild non-occlusive CAD Cervical Spine Date: 05/10/24 1. Motion degraded exam. 2. Discogenic degeneration with uncovertebral hypertrophy and facet arthrosis as above resulting in multilevel neural foraminal stenosis. 3. Central canal stenosis is most pronounced at C6-C7 where there is mild to moderate narrowing. 4. Normal signal of the cervical spinal cord. Other Testing Pacemaker report 05/20/24 Medtronic Mode AAI DDD Atrial 3% Ventricular 3% 0 pace terminated episodes Chest CTA 11/02/23 1. No thoracic aortic dissection. 2. No acute intrathoracic findings. No significant change in appearance of the chest.
--- OUTSIDE RECORDS SUMMARY | 2024-09-13 06:11 | External Medical Summary | Continuity of Care Document ---
Author Name Unknown Organization [facility] Address [address], [place] [id number] Support Name Relationship Address Phone KNABLE, NAKUL A Personal Relationship Unknown Unav ailable KNABLE, NAKUL A Personal Relationship Unknown Unav ailable KNABLE, NAKUL A Personal Relationship Unknown Unav ailable KNABLE, TUSHAR Chappell Personal Relationship Unknown Unavailable KNABLE, NAKUL A Personal Relationship Unknown Unav ailable KNABLE, NAUKL A Personal Relationship Unknown Unav ailable KNABLE, NAKUL A Personal Relationship Unknown Unav ailable KNABLE, NAKUL A Personal Relationship Unknown Unav ailable KNABLE, NAKUL A Personal Relationship Unknown Unav ailable KNABLE, KD B Personal Relationship Unknown Unav ailable KNABLE, NAKUL A Personal Relationship Unknown Unav ailable KNABLE, NAKUL A Personal Relationship Unknown Unav ailable KNABLE, NAKUL A Personal Relationship Unknown Unav ailable KNABLE, NAKUL A Personal Relationship Unknown Unav ailable KNABLE, NAKUL A Personal Relationship Unknown Unav ailable KNABLE, NAKUL A Personal Relationship Unknown Unav ailable KNABLE, NAKUL A Personal Relationship Unknown Unav ailable KNABLE, NAKUL A Personal Relationship Unknown Unav ailable KNABLE, NAKUL A Personal Relationship Unknown Unav ailable KNABLE, NAKUL A Personal Relationship Unknown Unav ailable KNABLE, NAKUL A Personal Relationship Unknown Unav ailable KNABLE, NAKUL A Personal Relationship Unknown Unav ailable KNABLE, NAKUL A Personal Relationship Unknown Unav ailable KNABLE, NAKUL A Personal Relationship Unknown Unav ailable KNABLE, NAKUL A Personal Relationship Unknown Unav ailable Care Team Providers Care Line Operator Name Role Phone Richi Martines Primary Care Physic ladi [phone] [id number] Date(s): 08/30/24 - 08/30/[address] [id number] [phone] Discharge Disposition: Home or Self Care Attending Physician: MD Valadez Patrick C Referring Physician: MD Valadez Patrick C Encounter Type: Outpatient Hospital Allergies, Adverse Reactions, Alerts Substance Criticality Severity Reaction Reaction Severity Status ciprofloxacin Rash and blisters Active nortriptyline nausea and vomiting Active zoster vaccine, inactivated Numbness of limbs Aching headache Nausea present Muscle weakness of limb Malaise and fatigue Active Cymbalta urinary retention Ac tive milnacipran h/a weak dizzy Act [place]oston TiZANidine Hydrochloride weakness, joint pain Active Immunizations Given and Recorded Vaccine Date Status Refusal Reason zoster vaccine, inactivated 1 02/21/21 Recorded pneumococcal 23-valent vaccine 2 07/24/20 Recorded influenza virus vaccine, inactivated 3 04/14/18 Re corded influenza virus vaccine, inactivated 4 05/01/15 Re corded influenza virus vaccine, inactivated 04/16/15 Mannie rded influenza virus vaccine, inactivated 03/31/14 Mannie rded influenza virus vaccine, inactivated 05/18/13 Mannie rded influenza virus vaccine, inactivated 03/25/12 Mannie rded influenza virus vaccine, inactivated 04/19/11 Mannie rded influenza virus vaccine, inactivated 05/09/10 Mannie rded influenza virus vaccine, inactivated 05/07/09 Mannie rded influenza virus vaccine, inactivated 05/06/07 Mannie rded pneumococcal 13-valent vaccine 5 03/27/17 Recorded tetanus/diphtheria/pertuss, acel (Tdap) 6 05/05/14 Recorded 1Result Comment: Route: Unknown 2Result Comment: Route: Unknown 3Result Comment: Route: Unknown 4Result Comment: Route: Unknown 5Result Comment: Route: Unknown Outside Source Comment: [facility] 6Result Comment: Route: Unknown Problem List Condition Confirmation Course Effective Dates Status H ealth Status Informant Post-thoracotomy pain Confirmed Active Arthritis Confirmed Active Atrial fibrillation Confirmed 09/03/20 Active Basal cell carcinoma Confirmed Active Cancer Confirmed Active Cardiac pacemaker Confirmed Active Cardiomyopathy Confirmed Active Chest pain Confirmed Active Colitis Confirmed Active Mild CAD Confirmed Active Pancreatic cyst Confirmed Active Diarrhea Confirmed Active DJD, SITE UNSPECIFIED Confirmed Active Epigastric abdominal pain Confirmed Active GI bleeding Confirmed Active Herniated disc syndrome Confirmed Active Hyperlipemia Confirmed Active Keratosis Confirmed Active Thymoma, 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 Nausea and vomiting Confirmed Active Neuropathy Confirmed Active NSVT (nonsustained ventricular tachycardia) Confirmed Active CRISTINE - Obstructive sleep apnea Confirmed Active Left knee pain Confirmed Active Pre-op exam Confirmed Active Pericardial effusion Confirmed Active PTSD (post-traumatic stress disorder) Confirmed Active Raynauds disease Confirmed Active Status epilepticus Confirmed 09/03/20 Active Syncope Confirmed Active Thoracostomy Confirmed Active Thymoma Confirmed Active Tobacco user Confirmed Active Tonic-clonic seizure Confirmed 09/04/20 Active Ventricular premature beats Confirmed Active Wart Confirmed Active Weight disorder Confirmed Active Procedures Procedure Date Related Diagnosis Body Site Status Cardiac catheterization 04/2022 C ompleted Cardiac pacemaker 06/2021 Complet ed Removal of electrocardiograp hy loop recorder 06/2021 Completed Insertion of electrocardiogr aphy loop recorder using fluoroscopic guidance 05/2021 Completed Surgery 1 01/2020 Completed Colonoscopy 05/12/19 Completed excision right thumb and ind ex finger warts 03/08/19 Completed Placement of pain stimulator 08/11/18 Completed Placement procedure 2 06/02/18 Com pleted Intercostal nerve block 02/16/18 C ompleted Colonoscopy 02/08/18 Completed Upper GI endoscopy 02/08/18 Comple agustin Unknown procedure 3 10/05/17 Compl eted Excision - warts right thumb 4 08/05/17 Completed Excision of lipoma - right s calp, 3 mm punch biopsy right yazidism 5 08/05/17 Comp leted Intercostal nerve block 04/15/17 C ompleted Pulsed dye laser 6 09/26/15 Comple agustin Excision 7 01/11/15 Completed Pulsed dye laser 8 01/11/15 Comple agustin Pulsed dye laser 9 11/13/14 Comple agustin Excision of basal cell carcinoma 12/20/13 Completed thorocotomy on left Surgery 2011 Completed Complete excision 2009 Comp leted History of back surgery 2009 C ompleted Manipulation of deviated nasal septum 2005 Completed H/O inguinal hernia repair 2004 Completed Tonsillectomy 2004 Completed Mediastinoscopy 2003 Comple agustin Surgery 2002 Completed H/O vasectomy 1995 Completed Tumor 14 Completed 1fluid around heart 2spinal cord stimulator leads 3left T4T7 erector spinae plane block 4Excision of warts from right thumb 5Excision of lipoma from right scalp; 3 mm punch biopsy right yazidism 6wart on right thumb 7verrucal keratosis 8warts 9warts on left foot, bilateral thumbs 10thorocotomy on left 11melanoma 12tumor extraction 13thorocotomy left side 14chest july 2016 Results Laboratory List Name Date Creatinine, POC (RAD) (CREATININE,POC (R AD)) 08/30/24 Most recent to oldest [Reference Range]: 1 Estimated CrCl 106.69 mL/min (08/30/24 3:30 PM) Cret, POC [0.6-1.3 mg/dL] 1.0 mg/dL (08/30/24 11:19 AM) Radiology Reports * Exam Date Time Procedure Performing Provider Status 08/30/24 11:[address] Thorax w/ Contrast Nadine Juarez V; Final Notes: (CT Thorax w/ Contrast) Reason For Exam: Surveillacne malignant Thymoma CT Thorax w/ Contrast EXAMINATION: CT CHEST WITH CONTRAST CLINICAL HISTORY: Z95.0: Presence of cardiac pacemaker; C37: Malignant neoplasm of thymus; K86.2: Cyst of pancreas; Surveillance malignant Thymoma Per hematology/oncology note from 03/10/2024, the patient had a thymoma removed in 2003, with recurrence in 2004, 2011, and 2015. Additionally, left lower lobe pleural-based nodule concerning for recurrent disease in 2022, status post SBRT. COMPARISON: Prior CT studies of the chest from 08/25/2023, 06/09/2023, and 03/10/2023. TECHNIQUE: Helical CT scan through the chest after intravenous contrast administration. Data reconstructed as axial, sagittal and coronal slices. CONTRAST: Contrast Type (IV): Omnipaque 350 Contrast Volume (IV) in ml: 75.00 DOSE: Total Reported Dose Length Product (DLP) = 312.68 mGy.cm FINDINGS: Pleura and Lungs: No new pulmonary or pleural-based nodules. No recurrent disease at the posterior left costophrenic angle at the site of the previous pleural based nodule. Minimal unchanged scarringleft lung base in relation to the elevated left hemidiaphragm. Unchanged groundglass opacity at themedial left upper lobe, stable as compared to CT of the chest from 03/10/2023. Calcified granuloma left upper lobe. No pleural effusion. Central airways: Patent. Lymph nodes: No lymphadenopathy. Thyroid and Mediastinum: Thyroid gland is unremarkable. No mediastinal masses. Heart and Great vessels: Cardiac pacemaker leads terminate in the right atrium and right ventricle. Upper abdomen: Splenule. Unremarkable. Chest wall: Midline sternotomy wires. Pacemaker in the left anterior chest wall. Spinal cord stimulator. Degenerative changes of the thoracic spine. Postsurgical changes to the left chest wall. IMPRESSION: No evidence of disease recurrence. [place] Act 112: This study does not meet the requirements of [place] Act 112. Dr. Phil Collado is the dictating resident. Finalized reports status indicates that the attending has reviewed the images and report, and agrees with the interpretation. Preliminary report status should be regarded as NOT interpreted by the attending radiologist. Workstation ID: [id number] Final Dictated by:MD Collado Eric Dictated DT/TM:08/30/2024 5:05 Resident:MD Collado Eric Signed by:MD Cobos Rekha Signed (Electronic Signature):08/30/2024 5:04 p Social History Social History Type Response Tobacco Former smoker Smoking Status Former Smoker, quit > 1 yr Sex Male Sex Representation Male (finding) Implantable Device List Procedure Provider Procedure Date Device Type Site Unknown Unknown 06/19/21 Non Biological Chest Device Identifier Serial Number Lot or Batch Number Manufacturing Date Expiration Date Distinct Identification Code MRI Safety Implantable Status Assigning Authority Unknown 1 [id number] Unknown Unknown Unknown Unknown MR Conditi onal Active Unknown Procedure Provider Procedure Date Device Type Site Unknown Unknown 08/11/18 Non Biological Unknown Device Identifier Serial Number Lot or Batch Number Manufacturing Date Expiration Date Distinct Identification Code MRI Safety Implantable Status Assigning Authority Unknown 2 [id number] Unknown Unknown Unknown Unknown MR Conditi onal Active Unknown 1leads:RV- Medtronic- #5076/58- Capsure Fix Novus- SN: [id number] 06/19/21RA- Medtronic- #5076/52- Capsure Fix Novus- SN: [id number] 06/19/21 2leads:Medtronic- [id number]- Vectris surescan MRI- SN: [id number] 08/11/18medtronic- [id number]- Vectris surescan MRI- SN: [id number] 08/11/18 Patient Care team information Care Team Personnel Name: DO Marin Sean David Position: Referring Member Role: Lifetime Relationship Address: [facility] [address] [place] [address] [place] Telecom: [phone] Name: ALEXY Kern Stacey L Position: Nurse Pract - Cardiology Member Role: Lifetime Relationship Address: [address] [place] [address] [place] Telecom: [phone] Name: MD Martines Peter William Position: Referring Member Role: Primary Care Provider Address: [address] [address] [place] Telecom: [phone] Care Team Related Persons Name: NAKUL HANSON Name: TUSHAR HANSON Insurance Providers Guarantor name: KD HANSON Health Plan Information #: 1 Payer: [facility] Member Number: [id number] Policy Number: NA Group Number: NA Health Plan Information #: 2 Payer: SELF PAY Member Number: NA Policy Number: NA Group Number: NA Health Plan Information #: 3 Payer: [facility] Member Number: [id number] Policy Number: NA Group Number: NA
--- OUTSIDE RECORDS SUMMARY | 2024-09-13 06:11 | External Medical Summary | Continuity of Care Document ---
Author Name Unknown Organization [facility] Address [address] [place] [address] JULIO NUNO [phone] Support Name Relationship Address Phone KNABLE, NAKUL A Personal Relationship Unknown Unav ailable KNABLE, NAKUL A Personal Relationship Unknown Unav ailable KNABLE, NAKUL A Personal Relationship Unknown Unav ailable KNABLE, TUSHAR L Personal Relationship Unknown Unavailable KNABLE, NAKUL A [...] Unknown Unav ailable Care Team Providers Care Tire And Tube Repairer Name Role Phone Richi Martines Primary Care Physic ladi [phone] Encounter [facility] [id number] Date(s): 08/30/24 - 08/30/24 [facility] [id number], [place] [address]- [phone] Discharge Disposition: Home or Self Care Attending Physician: MD Valadez Patrick C Referring Physician: MD Martines Peter William Encounter Type: [facility] [place] Allergies, Adverse Reactions, Alerts Substance Criticality Severity [...] Unknown Outside Source Comment: [facility] Comment: Route: Unknown Problem List [...] s calp, 3 mm punch biopsy right buddhism 5 08/05/17 Comp leted Intercostal nerve block [...] right scalp; 3 mm punch biopsy right buddhism 6wart on right thumb 7verrucal keratosis 8warts 9warts on left foot, bilateral thumbs 10thorocotomy on left 11melanoma 12tumor extraction 13thorocotomy left side 14chest july 2016 Results Laboratory List Name Date Complete Blood Count w Differential (CBC ,DIFFH) 08/30/24 Comprehensive Metabolic Panel (COMP META B PANEL) 08/30/24 Most recent to oldest [Reference Range]: 1 eGFR CKD-EPI [>60 mL/min/1.73 m2] >90 mL /min/1.73 m2 (08/30/24 12:10 PM) Estimated CrCl 106.69 mL/min (08/30/24 12:48 PM) MPV [9.0-12.2 fL] 9.3 fL (08/30/24 12:10 PM) Immature Gran% 0.5 % (08/30/24 12:10 PM) Neut% 76.1 % (08/30/24 12:10 PM) Lymph% 14.0 % (08/30/24 12:10 PM) Canyon% 7.5 % (08/30/24 12:10 PM) Baso% 0.2 % (08/30/24 12:10 PM) Eos% 1.7 % (08/30/24 12:10 PM) Immat Gran, Abs [0-0.4 K/uL] 0.04 K/uL (08/30/24 12:10 PM) Neut, Abs [2.0-7.7 K/uL] 6.38 K/uL (08/30/24 12:10 PM) Lymph, Abs [1.0-3.4 K/uL] 1.17 K/uL (08/30/24 12:10 PM) Canyon, Abs [0-1.0 K/uL] 0.63 K/uL (08/30/24 12:10 PM) Baso, Abs [0-0.1 K/uL] 0.02 K/uL (08/30/24 12:10 PM) Eos, Abs [0-0.5 K/uL] 0.14 K/uL (08/30/24 12:10 PM) Type of Diff: AUTO *Unknown* (08/30/24 12:10 PM) RDW [11.5-14.2 %] 13.2 % (08/30/24 12:10 PM) Anion Gap [5-14 mmol/L] 10 mmol/L (08/30/2410 PM) Alb [3.5-5.2 g/dL] 4.4 g/dL (08/30/2410 PM) Alk Phos [40-130 unit/L] 74 unit/L 1 (08/30/24 PM) ALT [0-41 unit/L] 18 unit/L (08/30/2410 PM) AST [0-40 unit/L] 17 unit/L (08/30/2410 PM) BUN [6-23 mg/dL] 12 mg/dL (08/30/24 PM) Ca [8.4-10.2 mg/dL] 9.7 mg/dL (08/30/2410 PM) Cl- [98-107 mmol/L] 101 mmol/L (08/30/24 PM) HCO3 [22-29 mmol/L] 25 mmol/L (08/30/2410 PM) Cret [0.70-1.30 mg/dL] 0.84 mg/dL (08/30/24:10 PM) Glu [74-109 mg/dL] 94 mg/dL 2 (08/30/2410 PM) Hct [39-48 %] 49.6 % *HI* (08/30/24: PM) Hgb [13.0-17.0 g/dL] 16.9 g/dL (08/30/2410 PM) K [3.5-5.1 mmol/L] 4.2 mmol/L (08/30/2410 PM) MCH [28-33 pg] 31.1 pg (08/30/24:10 PM) MCHC [32-36 g/dL] 34.1 g/dL (08/30/2410 PM) MCV [81-96 fL] 91.2 fL (08/30/24:10 PM) Na [136-145 mmol/L] 136 mmol/L (08/30/2410 PM) Plts [150-350 K/uL] 208 K/uL (08/30/24 12:10 PM) RBC [4.40-5.60 M/uL] 5.44 M/uL (08/30/24 12:10 PM) T Bili [0.0-1.2 mg/dL] 1.1 mg/dL (08/30/24 12:10 PM) Prot [6.4-8.3 g/dL] 7.1 g/dL (08/30/24 12:10 PM) WBC [4.0-10.4 K/uL] 8.38 K/uL (08/30/24 12:10 PM) 1Result Comment: Low levels of ALKP may indicate a deficiency in zinc, magnesium, or malnutritionbutcan also be an indicator of a rare genetic disease hypophosphatasia (HPP). 2Result Comment: ADA recommendation for FASTING Serum/Plasma Glucose: Normal: 70-100 mg/dL Prediabetes: 100-125 mg/dL Diabetes: 126 mg/dL or higher Social History Social History Type Response Tobacco Former smoker Smoking Status Former Smoker, quit > 1 yr Sex Male Sex Representation Male (finding) Implantable Device List Procedure Provider Procedure Date Device Type Site Unknown Unknown 06/19/21 Non Biological Chest Device Identifier Serial Number Lot or Batch Number Manufacturing Date Expiration Date Distinct Identification Code MRI Safety Implantable Status Assigning Authority Unknown 1 [id number] Unknown Unknown Unknown Unknown MR Conditi onal Active Unknown Procedure Provider Procedure Date Device Type Site Unknown Unknown 08/11/18 Non Biological Unknown Device Identifier Serial Number Lot or Batch Number Manufacturing Date Expiration Date Distinct Identification Code MRI Safety Implantable Status Assigning Authority Unknown 2 [id number] Unknown Unknown Unknown Unknown MR Conditi onal Active Unknown 1leads:RV- Medtronic- #5076/58- Capsure Fix Novus- SN: [id number] 06/19/21RA- [employer]tronic- #5076/52- Capsure Fix Novus- SN: [id number] 06/19/21 2leads:Medtronic- [id number]- Vectris surescan MRI- SN: [id number] 08/11/18medtronic- [id number]- Vectris surescan MRI- SN: [id number]- 08/11/18 Patient Care team information Care Team Personnel Name: DO Marin Sean David Position: Referring Member Role: Lifetime Relationship Address: [facility] [address] [place] [address] [place] Telecom: [phone] Name: ALEXY Kern Stacey L Position: Nurse Pract - Cardiology Member Role: Lifetime Relationship Address: [address] [place] [address] [place] Telecom: [phone] Name: MD Martines Peter William Position: Referring Member Role: Primary Care Provider Address: [address] [address] Telecom: [phone] Care Team Related Persons Name: NAKUL HANSON Name: TUSHAR HANSON Insurance Providers Guarantor name: KD HANSNO Health Plan Information #: 1 Payer: [facility] Member Number: [id number] Policy Number: NA Group Number: NA Health Plan Information #: 2 Payer: SELF PAY Member Number: NA Policy Number: NA Group Number: NA Health Plan Information #: 3 Payer: [facility] Member Number: [id number] Policy Number: NA Group Number: NA
[2024-09-13] MEDS: LR 60ML/HR IV SCH (06:28)
[2024-09-13] MEDS: LR 15ML/HR IV SCH (06:28)
[2024-09-13] MEDS: GABAPENTIN 900 MG DOSE PO SCH (06:42)
[2024-09-13] MEDS ORDERED: ePHEDrine sulfate 50 MG/ML AMP IV PRN (06:49)
[2024-09-13] MEDS ORDERED: ATROPINE SULFATE 0.1 MG/ML 10ML SYR IV PRN (06:49)
[2024-09-13] MEDS ORDERED: ONDANSETRON INJ 2 MG/ML 2 ML VIAL IV PRN ×2 (06:49→11:56)
[2024-09-13] MEDS ORDERED: HYDROmorphone INJ 2 MG/ML SYR/VIAL IV PRN (06:49)
[2024-09-13] MEDS ORDERED: PROMETHAZINE HCL 6.25 MG in SODIUM CHLORIDE 0.9% 50 ML IV PRN (06:49)
[2024-09-13] MEDS ORDERED: fentaNYL citrate PF 100 MCG/2 ML VIAL IV PRN (06:49)
[2024-09-13] MEDS ORDERED: MIDAZOLAM HCL 1 MG/ML 2ML VIAL ONE ×2 (07:09→11:30)
[2024-09-13] MEDS ORDERED: fentaNYL citrate PF 100 MCG/2 ML VIAL ONE (07:10)
[2024-09-13] MEDS ORDERED: PROPOFOL IV EMULSION 10 MG/ML 20 ML VIAL IV ONE ×2 (07:11→07:12)
[2024-09-13] MEDS ORDERED: ROCURONIUM BROMIDE 10 MG/ML 5 ML VIAL IV ONE ×4 (07:11→10:31)
[2024-09-13] MEDS ORDERED: LIDOCAINE 2% 2 ML VIAL/AMP(20MG/ML) INFIL ONE (07:11)
--- NOTE | 2024-09-13 07:11 | History & Physical Bridge Note ---
Date of Service September 13, 2024 History & Physical Bridge Note I have examined the patient, reviewed the History & Physical and in the interval since the performance of the History & Physical I have noted the following changes of clinical significance: no changes noted
[2024-09-13] MEDS: ceFAZolin 2000MG 2,000 MG/15 ML SYR IV SCH ×2 (07:58→19:59)
[2024-09-13] MEDS ORDERED: ONDANSETRON INJ 2 MG/ML 2 ML VIAL ONE (08:10)
[2024-09-13] MEDS ORDERED: GLYCOPYRROLATE 0.2 MG/ML VIAL ONE (08:10)
[2024-09-13] MEDS ORDERED: DEXAMETHASONE SOD INJ 4 MG/ML VIAL ONE (08:10)
[2024-09-13] MEDS ORDERED: HYDROmorphone INJ 2 MG/ML SYR/VIAL ONE (08:26)
[2024-09-13] MEDS ORDERED: PHENYLEPHRINE 100MCG/ML 5ML SYR ONE (08:41)
[2024-09-13] MEDS ORDERED: ceFAZolin 330 MG/ML 1 GM VIAL ONE (10:59)
[2024-09-13] MEDS: THROMBIN 5000 UNITS KIT ONE (11:28)
[2024-09-13] MEDS: VANCOMYCIN HCL 1000MG/20ML VIAL ONE (11:28)
[2024-09-13] MEDS: GELATIN SPONGE 12-7MM ONE (11:28)
[2024-09-13] MEDS: FLOSEAL HEMOSTATIC MATRIX 10ML TOP ONE (11:30)
[2024-09-13] MEDS: ceFAZolin 2000MG 2,000 MG/15 ML SYR IV ONE (11:38)
--- NOTE | 2024-09-13 11:55 | Post Operative Brief Note ---
PG Immediate Post Op with CF Date of Surgery September 13, 2024 Pre & Post Diagnosis Operation Date: 09/13/24 07:15 Pre-Op Diagnosis: Cervical Radiculopathy, Numbness of Right Upper Extremity Post-Op Diagnosis: Cervical Radiculopathy, Numbness of Right Upper Extremity I identified the patient and participated in the time-out.: Yes Procedure Operation Date: 09/13/24 07:15 Actual Procedures p C5-C6, C6-C7 Cervical Artificial Disc Arthroplasty(Not Applicable) - Dudley Golden MD Surgeon Dudley Golden MD Loaders none Estimated Blood Loss 20 Findings Consistent with Post-Op Diagnosis Specimens Specimen Description: no specimen per surgeon Drains Alvarado Catheter
[2024-09-13] MEDS ORDERED: hydrOXYzine HCl 25 MG TAB PO PRN (11:56)
[2024-09-13] MEDS ORDERED: bisacodyL 10 MG SUPP PR PRN (11:56)
[2024-09-13] MEDS ORDERED: ACETAMINOPHEN 1,000 MG/100 ML VIAL IV PRN (11:56)
[2024-09-13] MEDS ORDERED: PROMETHAZINE 12.5 MG/50.5 ML BAG IV PRN (11:56)
[2024-09-13] MEDS ORDERED: DO NOT ADMINISTER FLU VACCINE PRN (11:56)
[2024-09-13] MEDS ORDERED: METOCLOPRAMIDE HCL INJ 5 MG/ML 2 ML VIAL IV PRN (11:56)
[2024-09-13] MEDS ORDERED: LORazepam 2 MG/1 ML VIAL IV PRN (11:56)
[2024-09-13] MEDS ORDERED: LORazepam 0.5 MG TAB PO PRN (11:56)
[2024-09-13] MEDS ORDERED: MAGNESIUM HYDROXIDE SUSP 30 ML UDC PO PRN (11:56)
[2024-09-13] MEDS ORDERED: ACETAMINOPHEN 500 MG TAB PO PRN (11:56)
[2024-09-13] MEDS ORDERED: RACEPINEPHRINE 2.25% NEBU SOLN 0.5 ML VIAL INH PRN (11:56)
[2024-09-13] MEDS ORDERED: NALOXONE HCL 0.4 MG/1 ML VIAL/CARP IV PRN (11:56)
[2024-09-13] MEDS ORDERED: FAMOTIDINE 20 MG TAB PO PRN (11:56)
[2024-09-13] MEDS ORDERED: diphenhydrAMINE Capsule 25 MG CAP PO PRN (11:56)
[2024-09-13] MEDS ORDERED: HYDROmorphone INJ 0.5 MG/0.5 ML SYR IV PRN (11:56)
[2024-09-13] MEDS ORDERED: dexAMETHasone 8 MG in SYRINGE 0 ML IV PRN (11:56)
[2024-09-13] MEDS ORDERED: SOD PHOSPHATE/SOD BIPHOSPHATE ENEMA 132 ML BTL PR PRN (11:56)
[2024-09-13] MEDS ORDERED: ALUMINUM/MAGNESIUM SUSP 30 ML UDC PO PRN (11:56)
[2024-09-13] MEDS ORDERED: ONDANSETRON 4 MG OD TAB PO PRN (11:56)
[2024-09-13] MEDS ORDERED: DO NOT ADMINISTER PNEUMOCOCCAL VACCINE PRN (11:56)
[2024-09-13] MEDS ORDERED: SUGAMMADEX SODIUM 200 MG/2 ML VIAL IV ONE (11:57)
--- NOTE | 2024-09-13 12:36 | Fluoroscopy Report ---
FL cervical 2-3V CLINICAL HISTORY: ACDF C5-C7 COMPARISON STUDY: None FLUOROSCOPY TIME: 164 seconds FLUOROSCOPY IMAGES: 14 EXPOSURE DOSE: 94 mGy FINDINGS: Fluoroscopy was provided for cervical spine surgery. IMPRESSION: Intraoperative fluoroscopy. ACT 112: Negative or not required by law. Electronically signed by: Rickey Stoddard M.D. 09/13/2024 12:35 PM
[2024-09-13 13:06] LABS: BUN Creatinine Ratio 12.6 (10-20); Calcium 8.6 mg/dl (8.6-10.3); Creatinine Clr Calc Pharmacy 87.9 ml/min; Potassium 3.9 mmol/L (3.5-5.1)
--- NOTE | 2024-09-13 13:22 | Anesthesiology Progress Note ---
Date of Service September 13, 2024 Anesthesia Post Procedure Vital Signs Vital Signs: Temp Pulse Pulse Resp BP Pulse Ox O2 Del Method 09/13/24 13:20 36.8 C 91 H 14 132/77 92 Room Air 09/13/24 13:05 89 14 144/82 H 93 Room Air 09/13/24 12:55 90 17 129/92 92 Room Air 09/13/24 12:45 91 H 12 140/100 97 Room Air 09/13/24 12:35 88 12 153/84 H 100 Oxymask 09/13/24 12:25 88 12 141/94 H 100 Oxymask 09/13/24 12:15 87 12 155/86 H 100 Oxymask 09/13/24 12:06 36.0 C L 92 H 12 159/92 H 100 Oxymask 09/13/24 06:10 36.9 C 73 20 123/77 100 Room Air O2 Flow Rate 09/13/24 13:20 09/13/24 13:05 09/13/24 12:55 09/13/24 12:45 09/13/24 12:35 6 09/13/24 12:25 6 09/13/24 12:15 8 09/13/24 12:06 8 09/13/24 06:10 Pain Intensity Neck: Pain Intensity: 4 Transfer of Care Handoff Completed per policy Notes Mental Status: alert / awake / arousable and participated in evaluation Patient Amnestic to Procedure: Yes Nausea / Vomiting: adequately controlled Pain: adequately controlled Airway Patency, RR, SpO2: stable & adequate BP & HR: stable & adequate Hydration State: stable & adequate Anesthetic Complications: no major complications apparent
[2024-09-13] MEDS ORDERED: HYDROCODONE/ACETAMOPHEN 5/325MG TAB PO PRN (15:46)
[2024-09-13] MEDS ORDERED: MELATONIN 3 MG TAB PO PRN (15:46)
[2024-09-13] MEDS ORDERED: BACLOFEN 10 MG TAB PO PRN (15:46)
[2024-09-13] MEDS: oxyCODONE/ACETAMINOPHEN 5mg/325mg TAB PO PRN (18:40)
[2024-09-13] MEDS: TAMSULOSIN HCL 0.4 MG CAP PO SCH (19:59)
[2024-09-13] MEDS: levETIRAcetam 500 MG TAB PO SCH (20:00)
[2024-09-13] MEDS: hydrOXYzine HCl 10 MG TAB PO PRN (20:00)
[2024-09-13] MEDS: HYOSCYAMINE SULFATE 0.125 MG TAB PO SCH (20:00)
[2024-09-13] MEDS: MAGNESIUM OXIDE 400 MG TAB PO SCH (20:01)
[2024-09-13] MEDS: DOCUSATE SODIUM/SENNA 50/8.6MG TAB PO SCH (20:01)
[2024-09-13] MEDS: METOPROLOL SUCC 25MG EXT REL TAB PO SCH (20:01)
--- NOTE | 2024-09-13 20:06 | Hospitalist Consultation ---
Date of Consultation September 13, 2024 Assessment & Plan (1) Atrial fibrillation: (2) HTN (hypertension): (3) PTSD (post-traumatic stress disorder): (4) HLD (hyperlipidemia): (5) Depression: (6) Seizure disorder: (7) CRISTINE (obstructive sleep apnea): (8) Anticoagulant long-term use: (9) BPH w urinary obs/LUTS: (10) Cardiomyopathy due to chemotherapy: Plan 54 yo male PMHx afib on Eliquis, chemo induced cardiomyopathy, malignant thymoma, HTN, HLD, seizure dx, PTSD, depression, CRISTINE, BPH. We are consulted for post-op medical management. He is POD-0 s/p C5-C6, C6-C7 Cervical Artificial Disc Arthroplasty. #Afib/HTN/Cardiomyopathy Restart AC when deemed appropriate by surgical team Continue metoprolol 25mg HS Monitor rate, EKG if appears RVR #Post Op Pain Per surgical team: Dilaudid PRN Tylenol PRN Percocet PRN Narcan ordered #Seizure Dx Continue Keppra 1g BID #HLD Continue Crestor #PTSD/Depression/Anxiety Continue hydroxyzine PRN PRN IV Ativan #BPH Continue flomax #CRISTINE Wears CPAP at home No CPAP while in hard collar Continuous pulse ox overnight FENGI: Regular Code status: Full DVT prophylaxis: SCDs, chemical prophylaxis deferred until cleared by surgical team Isolation: none Disposition: med/surg Supervising Physician Co-Signing Physician Notes I have personally seen, evaluated and examined the patient. I have also personally discussed the management of the patient with the resident wyatt lloyd/DAVIDA and I agree with the exam findings documented in the history and physical examination and the documented assessment and plan unless otherwise stated below. Brief Exam: In general pleasant 54-year-old male is alert and oriented x 3, examination. He is resting comfortably in bed. HEENT: Normocephalic atraumatic Neck: Currently in a hard cervical collar postoperative cervical spine surgery is described above. Heart: Regular rate rhythm no murmur at the p.o. Lungs: Clear bilaterally anteriorly and posteriorly. Abdomen: Soft nontender. Positive bowel sounds no pressure organomegaly. Extremities: Neurovascularly intact x 4. No peripheral sinus clubbing or edema. Neurologically: Alert and oriented x 3 with no focal deficit. Assessment/plan: As described above. Largest recommendation is to restart Eliquis postoperatively LIZANDRO when okay with Ortho spine surgery. Patient does have a history of a DVT PE. Terms of patient's sleep apnea he typically has CPAP at home. He is declining this tonight given his cervical collar. I personally spoke with the patient's registered nurse Tani alfaro, we will place the patient on continuous pulse ox. If he desats we will place 2 L Nasal cannula. Nurse was instructed to update resident physician on-call if he desats while on 2 L. Please refer to orders for further planning. Thank you for the opportunity to Co. participate in the care of of Sean as he continues to convalesce his cervical spine surgery here at [facility]. Will continue to follow with you on a daily and as needed basis. History of Present Illness Reason for Consultation: Post-op medical management Requesting Physician: Dudley Golden MD Attending Physician: Dudley Golden MD History of Present Illness 54 yo male PMHx afib on Eliquis, chemo induced cardiomyopathy, malignant thymoma, HTN, HLD, seizure dx, PTSD, depression, CRISTINE, BPH. We are consulted for post-op medical management. He is POD-0 s/p C5-C6, C6-C7 Cervical Artificial Disc Arthroplasty. Pt states that he is resting comfortably, pain well controlled. CMP day of admission without significant abnormalities. Mild hypertension, tachycardia in post op setting. Pt does have hx of afib on Eliquis and hx of perioperative DVT, will need AC restarted when cleared by surgery. Allergies Allergy/AdvReac Type Severity Reaction Status Date / Time ciprofloxacin [From Cipro] Allergy Intermediate Rash Verified 09/13/24 06:00 milnacipran AdvReac Severe Palpitations, Verified 09/13/24 06:00 urinary retention vaccine adjuvant system, AdvReac Severe Numbness Verified 09/13/24 06:00 AS01B liposomal in limbs [From Shingrix (PF)] varicella-zoster virus AdvReac Severe Numbness Verified 09/13/24 06:00 glycoprotein E, recombinant in limbs [From Shingrix (PF)] duloxetine [From Cymbalta] AdvReac Intermediate unable to Verified 09/13/24 06:00 void venlafaxine AdvReac Intermediate Dizziness Verified 09/13/24 06:00 nortriptyline AdvReac Unknown Nausea Verified 09/13/24 06:00 Home Medications Medication Instructions Recorded Confirmed Type baclofen 10 mg tablet 10 mg PO HS PRN Muscle Spasm 01/27/20 09/13/24 History cyanocobalamin (vitamin B-12) 500 1,000 mcg PO QAM 01/27/20 09/13/24 History mcg tablet (Vitamin B-12) apixaban 5 mg tablet (Eliquis) 5 mg PO BID 07/18/21 09/13/24 History levetiracetam 500 mg tablet 1,000 mg PO BID 07/18/21 09/13/24 History hyoscyamine sulfate 0.125 mg tablet 0.125 mg PO BID 02/13/23 09/13/24 History melatonin 3 mg tablet 3 mg PO HS PRN Insomnia 02/15/23 09/13/24 History hydroxyzine HCl 10 mg tablet 10 mg PO TID PRN anxiety/sleep 04/02/23 09/13/24 History sildenafil 100 mg tablet 50 mg PO DAILY PRN Erectile 04/02/23 09/13/24 History Dysfunction magnesium oxide 420 mg tablet 420 mg PO QPM 05/11/23 09/13/24 History diclofenac sodium 1 % topical gel 2 g topical TID PRN Pain 05/16/23 09/13/24 History (Voltaren Arthritis Pain) metoprolol succinate 25 mg 25 mg PO HS 11/02/23 09/13/24 History tablet,extended release 24 hr hydrocodone 5 mg-acetaminophen 325 1 tab PO TID PRN prn 08/17/24 09/13/24 History mg tablet rosuvastatin 20 mg tablet 20 mg PO QPM 08/17/24 09/13/24 History tamsulosin 0.4 mg capsule 0.4 mg PO HS 08/17/24 09/13/24 History Patient History Medical History Polycythemia History of thymoma dx 2002, x6 surgeries and 2 rounds of chemo PTSD (post-traumatic stress disorder) History of pulmonary embolism 06/2021 after pacemaker insertion Raynauds disease Tachy-maryan syndrome pacemaker present History of renal cell cancer removal of tumor Hypertension controlled, stable per pt Hyperlipidemia History of cardiomyopathy due to chemo BPH loc w urin obs/LUTS Atrial fibrillation Anticoagulant long-term use Cervical radiculopathy History of GI bleed 2022 History of esophageal dilatation Depression CRISTINE (obstructive sleep apnea) CPAP-compliant 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 Hiatal hernia Slow to wake up after anesthesia gets confused and violent sometimes waking up from his PTSD Fibromyalgia SOBOE (shortness of breath on exertion) Hx of basal cell carcinoma Hx of melanoma of skin Neurostimulator device in situ 2016 or 2017, [facility] Neuropathy feet and hands Syncopal episodes last episode 2023-following with cardiology Malignant lung neoplasm left lung, partial removal, radiation 05/2023 Pacemaker 06/2021, [facility], Medtronic>last checked 03/27/23 psh Grand mal seizure disorder last seizure 2020 Pericardial effusion with cardiac tamponade hx History of rectal bleeding ~2019, adm to [facility], found to have hemorrhoids; recently found to have "some bleeding recently (not currently) and had testing/scans at [facility], no source of bleeding found, will have upcoming colonoscopy, dr is not concerned at this time" Chronic pain syndrome IBS (irritable bowel syndrome) Surgical History History of partial nephrectomy left History of cardiac cath ~2-3 years ago, [facility], no stents>done prior to pericardial window sx. Hx of basal cell carcinoma excision Hx of melanoma excision Hx of colonoscopy History of esophagogastroduodenoscopy (EGD) Hx of inguinal hernia repair Status post creation of pericardial window 2-3 years ago, [facility] arellano S/P thoracotomy 3 or 4, all related to thymoma History of back surgery lumbar Family History Other No significant family history Social History Smoking Status: Former smoker Tobacco Type: Cigarettes Cigarettes Per Day: pack and a half; Second Hand Exposure: No; Do You Dip or Chew Tobacco: No; Tobacco Cessation Education Requested by Patient: No Hx Alcohol Use: Yes Alcohol type: beer Alcohol Intake Frequency: Monthly or Less Hx Substance Use: No Preferred Language: Divehi Communication Ability: Effective Supervisor Abattoir Required: No Beliefs That Will Affect Care: None Current Living Situation: Spouse Current Living Situation Comment: live with and son at home Other Information That Helps Us Care for You: No Feels Safe at Home: Yes Safety Concerns: Feels Safe At This Time Assistive Devices: CPAP, Glasses and Hearing Aid - Bilateral Review of Systems Review of Systems: reviewed, per HPI Physical Exam Physical Exam: Constitutional: well-appearing, no acute distress HEENT: NCAT, no conjunctival injection CV: extremities well-perfused, no LE edema Resp: no increased work of breathing GI: nondistended MSK: no gross deformities appreciated, in C-spine brace, surgical dressing C/D/I Skin: warm, dry, no rash appreciated Neuro: alert, oriented, no focal neurologic deficit appreciated Results & Data Results & Data Vital Signs (Past 12 Hours) Vital Signs Temp Pulse Pulse Resp BP Pulse Ox O2 Del Method 09/13/24 18:37 36.4 C L 105 H 16 161/85 H 94 Room Air 09/13/24 17:30 37.3 C 16 155/92 H 96 Room Air 09/13/24 16:30 37.2 C 51 L 16 145/80 H 96 Room Air 09/13/24 15:41 104 H 16 93 Room Air 09/13/24 15:10 97 H 15 135/88 96 Room Air 09/13/24 14:40 98 H 14 144/84 H 96 Nasal Cannula 09/13/24 14:10 95 H 15 138/83 97 Nasal Cannula 09/13/24 13:55 91 H 12 131/81 97 Nasal Cannula 09/13/24 13:35 93 H 14 130/83 92 Room Air 09/13/24 13:20 36.8 C 91 H 14 132/77 92 Room Air 09/13/24 13:05 89 14 144/82 H 93 Room Air 09/13/24 12:55 90 17 129/92 92 Room Air 09/13/24 12:45 91 H 12 140/100 97 Room Air 09/13/24 12:35 88 12 153/84 H 100 Oxymask 09/13/24 12:25 88 12 141/94 H 100 Oxymask 09/13/24 12:15 87 12 155/86 H 100 Oxymask 09/13/24 12:06 36.0 C L 92 H 12 159/92 H 100 Oxymask O2 Flow Rate 09/13/24 18:37 09/13/24 17:30 09/13/24 16:30 09/13/24 15:41 09/13/24 15:10 0 09/13/24 14:40 2 09/13/24 14:10 2 09/13/24 13:55 2 09/13/24 13:35 09/13/24 13:20 09/13/24 13:05 09/13/24 12:55 09/13/24 12:45 09/13/24 12:35 6 09/13/24 12:25 6 09/13/24 12:15 8 09/13/24 12:06 8 Resident Activity Tracking Resident Involvement: Resident Care Provided Care Provided: Adult Hospital Medicine
[2024-09-14] MEDS: POLYETHYLENE (MIRALAX) 17 GM PACK PO SCH (05:01)
[2024-09-14 08:12] VITALS: RESP 16
--- NOTE | 2024-09-14 09:17 | Orthopedic Progress Note ---
Date of Service September 14, 2024 Subjective Patient postop day 1 from anterior decompression and disc arthroplasty at C5-6 and C6-7. He notes distinct improvement in his upper extremities, minimal if any throat irritation. Incision site is unremarkable dressing dry. Impression/plan: Postop day 1 surgery as stated, doing well. Will discharge the patient home today. Review of Systems All systems reviewed & are unremarkable except as noted in HPI & below. Physical Exam . Results & Data Results & Data Laboratory Results . Diagnostic Findings . PG Care Time/CCT Total # of Minutes Spent Total Time Spent with Patient: Total time spent is greater than 50% in coordination of care (as documented) at patient's floor/unit and/or counseling patient: Coding Level of Care Code 71747 Post Operative Follow-Up
--- NOTE | 2024-09-14 09:21 | Discharge Summary ---
Date of Service September 14, 2024 Admission HPI (Per Admitting) Cervical stenosis, cervical radiculopathy. Principal Diagnosis Same as "Discharge Diagnosis" noted below under Discharge Instructions. Discharge Exam . Discharge Data Consultations 09/13/24 11:56 Consult Hospitalist Routine Procedures Performed Operation Date: 09/13/24 07:15 Actual Procedures p C5-C6, C6-C7 Cervical Artificial Disc Arthroplasty(Not Applicable) - Dudley Golden MD Ordered Studies 09/13/24 07:15 FL cervical 2-3V Routine Hospital Course (1) Cervical disc disorder at C6-C7 level with radiculopathy: (2) Cervical disc disorder at C5-C6 level with radiculopathy: PG Care Time/CCT Total # of Minutes Spent Total Time Spent with Patient: Total time spent is greater than 50% in coordination of care (as documented) at patient's floor/unit and/or counseling patient: Discharge Plan Discharge Items Patient Disposition: Home - Self-Care Reason For Visit: Cervical Radiculopathy, Numbness of Upper Extremit Discharge Diagnosis: Cervical stenosis, cervical radiculopathy. Activity: As commented below Lifting: No more than 10 pounds Bathing: May shower/bathe in 3 days Exercise/Sports: Wait until after follow-up appointment Driving/Machine Use: Resume 3 days after discharge Non-emergency contact: Surgeon Call non-emergency contact if: your pain is worsening Follow-up/Referrals: Richi Bishop MD [Primary Care Provider] - Diet: Regular Addtl Attending Provider Instructions: Resume September 16 for [place]. Follow-up in 2 weeks. No cervical orthosis necessary. Pending Studies at Discharge: No Stand-Alone Forms: BakedCode, Smoking Cessation Medications and DC Order Prescriptions: Continued cyanocobalamin (vitamin B-12) [Vitamin B-12] 500 mcg Tablet 1,000 mcg PO QAM baclofen 10 mg tablet 10 mg PO HS PRN (Reason: Muscle Spasm) hyoscyamine sulfate 0.125 mg Tablet 0.125 mg PO BID Patient Comments: usually only taken in the morning and the evening Rx Instructions: PER PT "TAKE BID, CAN TAKE UP TO QID IF NEEDED". melatonin 3 mg Tablet 3 mg PO HS PRN (Reason: Insomnia) sildenafil 100 mg Tablet 50 mg PO DAILY PRN (Reason: Erectile Dysfunction) Hold Instructions: Resume on 04/22/23. Hold until discussed at f/u Rx Instructions: administer 30 minutes to 4 hours before activity hydroxyzine HCl 10 mg Tablet 10 mg PO TID PRN (Reason: anxiety/sleep) Patient Comments: usually only takes at night levetiracetam 500 mg tablet 1,000 mg PO BID magnesium oxide 420 mg Tablet 420 mg PO QPM diclofenac sodium [Voltaren Arthritis Pain] 1 % gel 2 g topical TID PRN (Reason: Pain) metoprolol succinate 25 mg Tablet Extended Release 24 Hr 25 mg PO HS rosuvastatin 20 mg Tablet 20 mg PO QPM tamsulosin 0.4 mg Capsule 0.4 mg PO HS hydrocodone-acetaminophen 5-325 mg Tablet 1 tab PO TID PRN (Reason: prn) Held Eliquis 5 mg tablet 5 mg PO BID Hold Instructions: Resume on 09/16/24. Discharge Orders: Discharge Order (Routine); Ordered 09/14/24 Ordered By: Dudley Golden Admission Data Admit Date/Time: 09/13/24 11:56 Attending Provider: Dudley Golden Admit Provider: Dudley Golden Primary Care Provider: Richi Bishop Other Providers: Manny Steinberg Other Interventions: Discharge Summary Assessment (RN) Last Done: 09/14/24 10:02
[2024-09-14 10:16] VITALS: BP 141/84; PULSE 87; TEMP 98.1; O2SAT 97
--- NOTE | 2024-09-14 15:53 | Operative Report ---
PG Post Operative Report Pre & Post Diagnosis Operation Date: 09/13/24 07:15 Pre-Op Diagnosis: Cervical Radiculopathy, Numbness of Right Upper Extremity Post-Op Diagnosis: Cervical Radiculopathy, Numbness of Right Upper Extremity I identified the patient and participated in the time-out.: Yes Procedure Operation Date: 09/13/24 07:15 Actual Procedures p C5-C6, C6-C7 Cervical Artificial Disc Arthroplasty(Not Applicable) - Dudley Golden MD Surgeon Dudley Golden MD [employer] none Estimated Blood Loss 20 Findings Consistent with Post-Op Diagnosis Specimens None Description of Procedure 1. C5-6 cervical artificial disc arthroplasty, Mobi-C 17 x 17 x 5 mm. (88375) 2. C6-7 cervical artificial disc arthroplasty, Mobi-C 17 x 17 x 5 mm. (31510) Patient was taken the operating room and placed on the OSI flattop table in the supine position. Positioning was then performed along with a preprepped, and after securing the patient in standard fashion, C-arm was brought in to helen for the approximate location of the incision for the 2 stated levels. Prep and drape was performed, I began incision with a transverse incision on the left side of the cervical spine. I advanced down to the anterior aspect of the cervical spine along the medial border the sternocleidomastoid. I was able to confirm the location via C-arm radiography. I mobilized soft tissues in the region of the 2 levels to be addressed followed by then advancing distractor pins for starting at C7 and C6. Once these were in place and retractor set, I began the procedure with incising the anterior annulus. A thorough discectomy was then performed utilizing the operative microscope with removal of disc material and cartilage from the endplates. Posteriorly, I used a high-speed bur to thin spondylosis followed by a combination of curettes and Kerrison punches to complete the decompression across the interspace to the dura and out to the uncinates bilaterally. Upon completion, I then utilized trials in fluoroscopy to select a size artificial disc replacement as noted, this was then obtained and inserted without issues in excellent position. The C7 distractor pin was then removed, bone wax was applied to the insertion site, and I then moved to inserted at C5 for utilization at the C5-6 level. Retractors were then reset, I then moved ahead with a similar procedure with incising the annulus, a thorough discectomy and posterior decompression across the interspace down to the dura and out to the uncinates bilaterally. With completion of the decompression, I then went through trials once again selecting a similar size as a best fit for this particular disc space. This was then inserted with excellent position. Final images were then obtained after removal of the distractor pins and insertion of bone wax in the insertion sites. Final evaluation revealed no issues, vancomycin powder was placed, the operative site was closed with 3-0 Vicryl sutures followed by benzoin and Steri-Strips, sterile dressing was applied. The patient was taken recovery room in satisfactory condition. I attest to the content of the Intraoperative Record and any orders documented therein. Any exceptions are noted below.
== END 2024-09-14 10:47 | disposition home or self-care (01) ==
LOC: 3E 05:38 → ASU 05:38